=== PATIENT | male | born 1990 | race Caucasian/White ===

== ENCOUNTER 2016-10-29 22:21 | Emergency (ER) | payer SELFPAY | END 2016-10-30 01:11 | disposition home or self-care (01) | LOC: EC 22:21 | DX: F20.9 Schizophrenia, unspecified (principal) | CPT/HCPCS: 82075; 99284 ==

== ENCOUNTER 2016-10-30 22:16 | Inpatient (IN) | payer MEDICAID, OTHER ==
--- NOTE | 2016-10-30 22:48 | ED ---
General Adult HPI - General Chief complaint: Psychiatric Symptoms Stated complaint: Mental Health Source: patient, RN notes reviewed, old records reviewed Mode of arrival: ambulatory Limitations: no limitations - History of Present Illness Initial comments: Chief complaint; patient reports is hearing voices and cannot make out what they 're saying. Denies suicidal thoughts. States he stopped his medications including Haldol, Cogentin, Cymbalta a long time ago. States he last saw a counselor at [facility] one month ago. States he has appointment to follow-up with the psychiatrist pretty soon . Breath alcohol 0. Patient at this time refusing to provide urine but denies drugs. States she'll try to give us a urine sample. The patient was seen emergency room yesterday. Even brought emergency room by the police because his mother cold them to say that he was depressed, stating he was suicidal. They found him burning his own closed. He was noncooperative yesterday. Because he did not say to the police that he was depressed or suicidal. Did not do a petition. Because he is uncooperative here or did he complain of depression or suicide yesterday left emergency room. His mother is reportedly unable to do a petition. - Related Data Home Medications Medication Instructions Recorded Confirmed Benztropine Mesylate [Cogentin] 1 mg PO BID 10/30/16 10/30/16 DULoxetine HCL [Cymbalta] 90 mg PO DAILY 10/30/16 10/30/16 Haloperidol [Haldol] 5 mg PO HS 10/30/16 10/30/16 Allergies Allergy/AdvReac Type Severity Reaction Status Date / Time diphenhydramine HCl Allergy Rash/Hives Verified 10/30/16 22:35 [From Benadryl] Review of Systems ROS Statement: Those systems with pertinent positive or pertinent negative responses have been documented in the HPI. Review of systems patient denies any complaints of aches pains. Mental health thorpe he states he is hearing voices but can't make out what they're saying. States he wants his medications altered. But also states she's not been on any medications for very long time. He used to be on Haldol, Cogentin and Cymbalta. Past medical problems schizophrenia. Surgeries appendectomy. Family history unknown. Cancers of unknown types. ALLERGIES to Benadryl. Denies smoking denies drinking. ROS Other: All systems not noted in ROS Statement are negative. Past Medical History Past Medical History: No Reported History History of Any Multi-Drug Resistant Organisms: None Reported Past Surgical History: Appendectomy Additional Past Surgical History / Comment(s): Pt reports he has no money and is depressed. Past Psychological History: Depression, Schizoaffective Disorder Smoking Status: Current every day smoker Past Alcohol Use History: None Reported Past Drug Use History: None Reported General Exam - General Exam Comments Initial Comments: General: The patient is awake and alert, in no distress, and does not appear acutely ill. Here because he wants talk to the psychiatric nurse about his medications. Vital signs temp 99.2 pulse 89 respiratory rate 18 pulse ox 99% room air blood pressure 148/83 Neck: No complaint of neck pain or stiffness. Cardiovascular: There is a regular rate and rhythm. No murmur, rub or gallop is appreciated. Respiratory: Lungs are clear to auscultation, respirations are non-labored, breath sounds are equal. No wheezes, stridor, rales, or rhonchi. Gastrointestinal: No complaint of nausea vomiting or diarrhea. Back: There is no tenderness to palpation in the midline. There is no obvious deformity. No rashes noted. Musculoskeletal: Normal ROM, no tenderness, There is no pedal edema. There is no calf tenderness or swelling. Sensation intact. Neurological: No neuro deficits Skin: Skin is warm and dry and no rashes or lesions are noted. Psychiatric: History of schizophrenia. Currently denying suicidal thoughts or intentions. States he is hearing voices. Cannot understand what they're saying. Limitations: no limitations Course Vital Signs 10/30/16 22:20 Temperature 99.2 F Pulse Rate 89 Respiratory 18 Rate Blood Pressure 148/83 O2 Sat by Pulse 99 Oximetry Medical Decision Making - Medical Decision Making the patient remained threatening in the emergency room. Not staying in his room. Refusing to provide urine sample. He did have a discussion the psychiatric nurse. She spoke to the psychiatrist and the psych nurse is filled out a petition. I filled out a certificate for admission to [facility] for evaluation by psychiatrist. Diagnosis schizophrenia. Disposition Clinical Impression: Schizophrenia, acute, Non-compliant patient Disposition: TRANSFER TO PSYCH HOSP/UNIT Condition: Serious
[2016-10-31] MEDS ORDERED: ZIPRASIDONE 20 MG VIAL IM STA (00:20)
[2016-10-31] MEDS ORDERED: LORazepam 2 MG/ML SYRINGE IM STA (00:21)
[2016-10-31] MEDS ORDERED: MAG HYDROX/AL HYDROX/SIMETH 30 ML CUP PO PRN (00:43)
[2016-10-31] MEDS ORDERED: ACETAMINOPHEN TAB 325 MG TAB PO PRN (00:43)
[2016-10-31] MEDS ORDERED: LORazepam 2 MG/ML SYRINGE IM PRN (00:48)
[2016-10-31] MEDS ORDERED: HALOPERIDOL LACTATE 5 MG/ML 1 ML VIAL IM PRN (00:49)
[2016-10-31 08:46] LABS: Basophils % (A) 1 %; CH 32.2; CHCM 34.6; Eosinophils # (A) 0.3 k/uL (0-0.7); Eosinophils % (A) 4 %; HCT 44.3 % (39.0-53.0); HDW 2.41; HGB 15.4 gm/dL (13.0-17.5); Luc # (Auto) 0.13; Luc % (Auto) 2; Lymphocytes # (A) 2.9 k/uL (1.0-4.8); Lymphocytes % (A) 35 %; MCH 32.4 pg (25.0-35.0); MCHC 34.8 g/dL (31.0-37.0); MCV 93.2 fL (80.0-100.0); Mean Platelet Volume 6.8; Monocytes # (A) 0.5 k/uL (0-1.0); Monocytes % (A) 6 %; Neutrophils # (A) 4.4 k/uL (1.3-7.7); Neutrophils % (A) 53 %; RBC 4.76 m/uL (4.30-5.90); RDW 12.9 % (11.5-15.5); WBC 8.2 k/uL (3.8-10.6); WBC (Perox) 7.72
[2016-10-31 09:19] LABS: ALT 36 U/L (21-72); AST 22 U/L (17-59); Alkaline Phosphatase 74 U/L (38-126); Anion Gap 11 mmol/L; Blood Urea Nitrogen 13 mg/dL (9-20); Calcium 9.7 mg/dL (8.4-10.2); Carbon Dioxide 26 mmol/L (22-30); Chloride 106 mmol/L (98-107); Glucose 94 mg/dL (74-99); Non-African American GFR(MDRD) >60 (>60 ml/min/1.73 sqM); Potassium 4.4 mmol/L (3.5-5.1); Sodium 143 mmol/L (137-145); Total Protein 6.7 g/dL (6.3-8.2)
--- NOTE | 2016-10-31 09:42 | P.HP ---
Psychiatric H&P - . History & Physical: Allergies Allergy/AdvReac Type Severity Reaction Status Date / Time diphenhydramine HCl Allergy Rash/Hives Verified 10/31/16 03:11 [From Benadryl] Vital Signs Temp 97.4 F L 10/31/16 02:39 Pulse 80 10/31/16 02:39 Resp 16 10/31/16 02:39 BP 117/55 10/31/16 02:39 Pulse Ox 95 10/31/16 02:39 Intake & Output 10/30/16 10/31/16 10/31/16 18:59 06:59 18:59 Weight 74.843 kg Laboratory Last Values WBC 8.2 k/uL (3.8-10.6) 10/31/16 08:35 RBC 4.76 m/uL (4.30-5.90) 10/31/16 08:35 Hgb 15.4 gm/dL (13.0-17.5) 10/31/16 08:35 Hct 44.3 % (39.0-53.0) 10/31/16 08:35 MCV 93.2 fL (80.0-100.0) 10/31/16 08:35 MCH 32.4 pg (25.0-35.0) 10/31/16 08:35 MCHC 34.8 g/dL (31.0-37.0) 10/31/16 08:35 RDW 12.9 % (11.5-15.5) 10/31/16 08:35 Plt Count 315 k/uL (150-450) 10/31/16 08:35 Neutrophils % 53 % 10/31/16 08:35 Lymphocytes % 35 % 10/31/16 08:35 Monocytes % 6 % 10/31/16 08:35 Eosinophils % 4 % 10/31/16 08:35 Basophils % 1 % 10/31/16 08:35 Neutrophils # 4.4 k/uL (1.3-7.7) 10/31/16 08:35 Lymphocytes # 2.9 k/uL (1.0-4.8) 10/31/16 08:35 Monocytes # 0.5 k/uL (0-1.0) 10/31/16 08:35 Eosinophils # 0.3 k/uL (0-0.7) 10/31/16 08:35 Basophils # 0.0 k/uL (0-0.2) 10/31/16 08:35 10/31/16 09:32 IDENTIFYING DATA: This patient is a 25-year-old single male who was admitted to the mental health unit for acute symptoms of psychosis from the emergency room. HPI: The patient presented with a petition stating "responding to internal cues currently, not taking medicines, and current paranoia." It is documented that the patient had presented to the ER the day before yesterday and left and presented to the ER more than once before allowing and evaluation yesterday. In the emergency room he was agitated and required use of Geodon IM. Today he states his mood is "stressful and tired". He reports struggling with auditory hallucinations ever since 2013. He states they have been worsening since this past August. He reports that they say "my whole family will ,... A bunch of negative shit". The patient states that he hears multiple voices and they can be commanding at times but they do not direct harm to self or harm to others. He reports his sleep is bad appetite has been low he reports losing approximately 10 pounds. Energy level is "not good". He has had mood symptoms in the past he does not describe significant symptoms of anxiety. It is unclear if he has had any hypomanic or manic episodes although he endorses none area he reports having no firearms at home. PAST PSYCHIATRIC HISTORY: He states he's had anywhere from 5-10 psychiatric admissions the last one was last year at [facility]. He works with Marilyn Nogueira at [facility] and states he was last prescribed Haldol 5 mg at bedtime Cymbalta 90 mg daily Cogentin 1 mg twice daily. He states he does not feel that the Haldol provides enough relief and is concerned that it has caused a dystonic reaction in the past. The Cogentin seems to help alleviate that side effect but causes blurring of his vision. He does feel that the Cymbalta has been effective for mood symptoms. He states he's been off of his medicines for approximately one month then later indicates he's been off of them since August. He has previously tried Risperdal Abilify and Zoloft. He states he has a history of 1 suicide attempt where he attempted to hang himself. PMH: None reported ALLERGIES: Diphenhydramine MEDICATIONS: None CHEMICAL DEPENDENCY HISTORY: He reports using alcohol once a week having 2 drinks at a time, no reported use of marijuana or any other illicit drugs. He is never been placed in residential treatment for chemical dependency reasons FAMILY PSYCHIATRIC HISTORY: The patient refused to answer FAMILY CHEMICAL DEPENDENCY HISTORY: The patient refused to answer SOCIAL HISTORY: The patient is a 25-year-old single male. He is originally from [facility]. He was raised primarily by his mother, he states he knows who his father is but does not really know him. When asked if he has any siblings he refuses to answer area he has an eighth grade education he was involved in special education curriculum. No history of service. 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 He reports he has his own apartment but does not describe how it's paid for other than stating he is involved with [employer]. He states he has applied for disability. In terms of legal history he refuses to answer, abuse history none reported. MENTAL STATUS EXAM: The patient is a male appearing his stated age he is a disheveled appearance he is wearing hospital gowns he has a ellington with no mustache. Eye contact is intermittent. He appears guarded throughout the session he demonstrates some odd smiling at times during our discussion. Speech can be spontaneous. He appears distracted during the interview several times he asks me to repeat what I said last. He endorses ongoing auditory hallucinations that are derogatory. He endorses visual hallucinations that are fast moving shadows. In terms of delusional thought he states he is being watched and followed by so security as he has applied and they're monitoring him. He states he has passed acquaintances that are following him as well. In general he describes feeling "unsafe". Insight and judgment are impaired. He is oriented to person place and date he is able to name the days of the week backwards. He demonstrates no verbal or physical aggressiveness he demonstrates no abnormal involuntary movements. STRENGTHS/WEAKNESSES: Strengths: Reported housing, [facility] support weaknesses: Lack of income ongoing symptoms of psychosis INTELLECTUAL FUNCTIONING: Presumed to be below average IMPRESSIONS: [] 1. Schizophrenia, rule out schizoaffective disorder 2. Lack of income, social support unknown, psychosocial dysfunction due to current symptoms of psychosis PLAN: He patient has been admitted to the mental health unit on a petition and clinical certificate. He states he is willing to sign in voluntarily and cooperate with proposed treatment. We reviewed his presenting symptoms and medication options and decided to initiate Zyprexa 15 mg at bedtime he will be restarted on Cymbalta 60 mg daily. Cogentin will be available if needed for dystonic symptoms. He will meet with the cushion sewer for routine history and physical exam. Social work will meet with the patient to complete a psychosocial assessment and begin discharge planning. We will monitor him for safety and encourage his full participation in the milieu
[2016-10-31] MEDS: NICOTINE 14MG/24HR PATCH TRANSDERM SCH (09:49)
[2016-10-31] MEDS: DULoxetine HCL 60 MG CAPSULE.DR PO SCH (09:50)
--- NOTE | 2016-10-31 13:59 | P.MDCNMH ---
History of Present Illness H&P Date: 10/31/16 Chief Complaint: Medical management This is a 25 her old male. He does not have a primary care physician. He has a past medical history of schizophrenia, tobacco use and dependence. When asked questions about his past medical history. Patient states that no one to talk about it. According to the ER notes, patient was hearing voices. He was saw his counselor one month ago. Apparently his mother passed on that he was depressed and suicidal. Patient is subsequently been admitted to the mental health unit. TSH was 2.350. Urinalysis was negative for urinary tract infection. Urine drug screen was positive for marijuana. Review of Systems All systems: negative Constitutional: Denies chills, Denies fever Eyes: denies blurred vision, denies pain Ears, nose, mouth and throat: Denies headache, Denies sore throat Cardiovascular: Denies chest pain, Denies shortness of breath Respiratory: Denies cough Gastrointestinal: Denies abdominal pain, Denies diarrhea, Denies nausea, Denies vomiting Musculoskeletal: Denies myalgias Integumentary: Denies pruritus, Denies rash Neurological: Denies numbness, Denies weakness Psychiatric: Reports depression, Reports hopelessness, Reports suicidal ideation , Denies anxiety Endocrine: Denies fatigue, Denies weight change Past Medical History Past Medical History: No Reported History History of Any Multi-Drug Resistant Organisms: None Reported Past Surgical History: Appendectomy Additional Past Surgical History / Comment(s): Pt reports he has no money and is depressed. Smoking Status: Current every day smoker Additional Past Alcohol Use History / Comment(s): Patient is a smoker of half pack a day for 3 years. He denies any medical marijuana, marijuana, street drug use. He uses alcohol occasionally. - Past Family History Father Additional Family Medical History / Comment(s): Patient will state that his parents of mother and father are both alive but he does not know their medical history. When asked about his brothers and sisters he just states I don't know. Medications and Allergies Home Medications Medication Instructions Recorded Confirmed Type Benztropine Mesylate [Cogentin] 1 mg PO BID 10/30/16 10/31/16 History DULoxetine HCL [Cymbalta] 90 mg PO DAILY 10/30/16 10/31/16 History Haloperidol [Haldol] 5 mg PO HS 10/30/16 10/31/16 History Allergies Allergy/AdvReac Type Severity Reaction Status Date / Time diphenhydramine HCl Allergy Rash/Hives Verified 10/31/16 03:11 [From Benadryl] Physical Exam Vitals: Vital Signs Temp Pulse Pulse Resp BP BP Pulse Ox 10/31/16 02:39 97.4 F L 80 16 117/55 95 10/31/16 01:26 67 18 103/55 98 10/30/16 22:20 99.2 F 89 18 148/83 99 Intake and Output 10/30/16 10/31/16 10/31/16 22:59 06:59 14:59 Other: Weight 74.843 kg Gen: This is a 25-year-old male. He is in no acute distress. HEENT: Head is atraumatic, normocephalic. Pupils equal, round. Sclerae is anicteric. NECK: Supple. No JVD. No lymphadenopathy. No thyromegaly. LUNGS: Clear to auscultation. No wheezes or rhonchi. No intercostal retractions. HEART: Regular rate and rhythm. No murmur. ABDOMEN: Soft. Bowel sounds are present. No masses. No tenderness. EXTREMITIES: No pedal edema. No calf tenderness. NEUROLOGICAL: Patient is awake, alert and oriented x3. Cranial nerves 2 through 12 are grossly intact. Cranial Nerve Examination - Cranial Nerves Cranial Nerve II- Optic: Intact Cranial Nerve III- Oculomotor: Intact Cranial Nerve IV- Trochlear: Intact Cranial Nerve V- Trigeminal: Intact Cranial Nerve - Abducens: Intact Cranial Nerve VII- Facial: Intact Cranial Nerve VIII- Auditory: Intact Cranial Nerve IX- Glossopharyngeal: Intact Cranial Nerve X- Vagus: Intact Cranial Nerve XI- Accessory: Intact Cranial Nerve XII- Hypoglossal: Intact Results CBC & Chem 7: 10/31/16 08:35 10/31/16 08:35 Assessment and Plan Plan: 1. Schizophrenia with depression and suicidal ideation. Patient admitted to the mental health unit. Continue current plan of care. 2. Tobacco use and dependence. Continue nicotine patch. Impression and plan of care have been directed as dictated by the signing physician. Mell Donis nurse practitioner acting as scribe for signing physician.
[2016-10-31] MEDS: LORazepam 1 MG TAB PO PRN (17:32)
[2016-10-31] MEDS ORDERED: HALOPERIDOL 5 MG TAB PO SCH (21:00)
[2016-10-31] MEDS: OLANZapine ODT 5 MG TAB PO SCH (21:17)
[2016-11-01] MEDS: DULoxetine HCL 60 MG CAPSULE.DR PO SCH (08:15)
[2016-11-01] MEDS: NICOTINE 14MG/24HR PATCH TRANSDERM SCH (08:15)
[2016-11-01] MEDS: LORazepam 1 MG TAB PO PRN (12:10)
[2016-11-01] MEDS ORDERED: OLANZapine ODT 5 MG TAB PO ONE (12:28)
[2016-11-01] MEDS ORDERED: WATER FOR INJECTION, STERILE 10 ML IV ONE ×2 (12:55→20:59)
[2016-11-01] MEDS: ZIPRASIDONE 20 MG VIAL IM PRN ×2 (12:58→21:12)
--- NOTE | 2016-11-01 16:29 | P.PN ---
Progress Note - Text Interval History: Patient is a 25-year-old male who was admitted for psychotic symptoms on a petition and clinical certification. He had been responding to internal stimuli and was not taking his medications. He presented to the emergency room on several occasions before admission and on the day of admission became quite agitated in the emergency room requiring Geodon IM. Patient was admitted and restarted on Cymbalta at 60 mg and begun onZyprexa 15 mg at bedtime. Patient received Geodon 20 mg and Ativan 2 mg last evening due to increasing agitation. Again this afternoon the patient became agitated and was given Ativan 1 mg by mouth with little result and was refusing any shots and so was given Zyprexa Zydis 5 mg orally with little improvement and so was given Geodon IM 20 mg due to increasing agitation, pacing in the halls and staring at staff. Patient was sleeping in his room, when approached he awakened easily. He stated he was feeling somewhat better, but did not want to continue the interview, closing his eyes and smiling but would not answer any more questions. Mental Status: Patient is a 25y/o male who was lying in his bed, he was easily awakened when approached but did not get out of bed, he remained lying down. Patient had been agitated earlier, pacing in the [place], staring at staff and received several prns. He stated he was feeling better, but he would not respond to any further questions. He was smiling during the interview but would not state about what. Patient then closed his eyes and would not respond to further questions. Assessment: Patient was discussed in treatment meeting and he remains guarded and has not been attending groups and required medication last evening for agitation. He is taking his oral medications. He again became agitated this afternoon, pacing in the halls, staring at staff and initially received ativan 1mg with little improvement, when asked if he would take a shot he refused and was given a one time dose of zyprexa zydis 5mg also with little benefit and he continued to show increasing signs of agitation, pacing and staring. He agreed to and was given an injection of Geodon 20mg. Patient returned to his room and slept. He was not cooperative with my interview late this afternoon, he did not appear groggy. He did not voice any other concerns or complaints. Plan: Patient will continue on his current medications, he is receiving Cymbalta 60 mg daily and Zyprexa 15 mg daily at bedtime, he continues to have when necessary Ativan and Geodon prn. Patient continues to require hospitalization to stablize and treat his psychotic symptoms. Patient will be encouraged to attend groups and activities.
[2016-11-01] MEDS: OLANZapine ODT 5 MG TAB PO SCH (20:48)
[2016-11-01] MEDS ORDERED: ZIPRASIDONE 20 MG VIAL IM ONE (20:59)
--- NOTE | 2016-11-02 08:45 | P.PN ---
Progress Note - Text Interval history: The patient is found in the hallway he follows me to an interview room reluctantly. He reports that he is "pissed off" and when asked why he states "you know why". He refuses to elaborate further. In reviewing notes it appears that the patient became agitated yesterday and required an injection of Geodon. He does ask as to when he will be discharged and we discussed discharge criteria given his presentation. He reports that he showering and attending some groups. He endorses no recent phone calls or visits. He has no questions regarding his medication he continues on Cymbalta and Zyprexa. He reports that he slept last night and appetite stable. Mental status exam: The patient is a disheveled male dressed in his own clothing. Eye contact is staring in nature he appears guarded and suspicious. He insinuates that I have an ulterior motive but does not elaborate further. He appears distracted and is likely still experiencing auditory hallucinations. He does admit to having auditory hallucinations but states are quieter. Again several times I have to repeat my question as he is distracted. He taps his fingers on the table throughout the session but he demonstrates no verbal or physical aggressiveness. He appears frustrated. He reports no suicidal or homicidal thoughts. No observed abnormal involuntary movements. Insight and judgment are impaired. Plan: The patient will continue on his current medication I will titrate the Zyprexa Zydis to 20 mg at bedtime in an effort to reduce symptoms of psychosis. He requires continued hospitalization for psychosis that leads to agitated behavior. We will monitor him for safety and encourage his participation in the milieu.
[2016-11-02] MEDS: DULoxetine HCL 60 MG CAPSULE.DR PO SCH (09:21)
[2016-11-02] MEDS: NICOTINE 14MG/24HR PATCH TRANSDERM SCH (09:21)
[2016-11-02] MEDS: LORazepam 1 MG TAB PO PRN (14:44)
[2016-11-02] MEDS: OLANZapine ODT 10 MG TAB PO SCH (20:06)
[2016-11-03] MEDS: NICOTINE 14MG/24HR PATCH TRANSDERM SCH (09:02)
[2016-11-03] MEDS: DULoxetine HCL 60 MG CAPSULE.DR PO SCH (09:02)
[2016-11-03] MEDS: LORazepam 1 MG TAB PO PRN ×2 (10:52→19:19)
--- NOTE | 2016-11-03 11:29 | P.PN ---
Progress Note - Text Interval history: The patient is found in the hallway he follows me to an interview room. He initially states he continues to experience auditory hallucination and reports that they are less severe. Later in the morning he intrusively presents to the office and states he is not having any hallucinations. He continues to reference the assumption that I have an all teary her motive but he will not discuss it further. Continues to state "you know what I mean" he states that I discuss his care with "the people upstairs". It appears he's been compliant with his medication nursing is encouraged to monitor him closely for compliance. He continues to be easily agitated. Mental status exam: The patient is a male appearing his stated age he is dressed in the same clothing is yesterday. Eye contact is staring in nature he continues to appear suspicious and guarded. He continues to appear to have paranoid and persecutory thoughts. The patient intrusively approaches me several times throughout the morning. Insight and judgment are impaired. He demonstrates no abnormal involuntary movements. Affect is blunted with little change in expression throughout the conversation. He initially truncated are session after only a few moments out of anger but he returned to participate further. Plan: The patient's will continue on his current medication. We are allowing the Zyprexa time to demonstrate efficacy. Nursing is encouraged to observe him for compliance with medication. Vital signs reviewed. The patient requires continued hospitalization due to acute psychosis. There has been little improvement so far clinically speaking.
[2016-11-03] MEDS: OLANZapine ODT 10 MG TAB PO SCH (21:00)
--- NOTE | 2016-11-04 08:22 | P.PN ---
Progress Note - Text Interval history: A she has seen in cross coverage today for Dr. Ballard. He seems to relay that he slept well last night. He has not had breakfast yet this morning. He seems to be compliant with his medications and does not voice any adverse side effects. He is currently on Zyprexa Zydis and Cymbalta. Mental status exam: He was found in his room lying in bed. He did awaken with name-calling and was cooperative with coming to the interview room. His affect is blunted. His answers are very brief. He describes his mood as good. He denies any auditory or visual hallucinations. He denies any thoughts of harm to self or others. He does not show any current agitation. Plan: We'll maintain current psychotropic medications. Monitor his ongoing response to medications as well as monitor for any medication side effects. We' ll continue to cover this patient for Dr. Ballard through the weekend.
[2016-11-04] MEDS: NICOTINE 14MG/24HR PATCH TRANSDERM SCH (09:09)
[2016-11-04] MEDS: DULoxetine HCL 60 MG CAPSULE.DR PO SCH (09:10)
[2016-11-04] MEDS: LORazepam 1 MG TAB PO PRN ×2 (15:25→22:34)
[2016-11-04] MEDS: OLANZapine ODT 10 MG TAB PO SCH (20:09)
[2016-11-05] MEDS: NICOTINE 14MG/24HR PATCH TRANSDERM SCH (09:35)
[2016-11-05] MEDS: DULoxetine HCL 60 MG CAPSULE.DR PO SCH (09:35)
[2016-11-05] MEDS: LORazepam 1 MG TAB PO PRN (12:39)
--- NOTE | 2016-11-05 12:41 | P.PN ---
Progress Note - Text Interval history: Patient seen in [facility] [place] for Dr. Ballard. Patient reports that he slept well through the night. He seems to be eating well. He does inquire regarding discharge planning. He relates that he has not been needing to take the Cogentin when necessary. He does not seem to voice any adverse psychotropic medication side effects. Mental status exam: He is alert and cooperative with the interview. His answers are somewhat brief. He describes his mood as up and down. He denies any thoughts of harm to self or others. He denies any hallucinations. He does not make any christo delusional statements. His affect is somewhat blunted. He does not show any agitation. Plan: Patient will be maintained on current psychotropic medication regimen. We will monitor for any medication side effects monitor his ongoing response. Dr. Ballard to resume care this patient starting tomorrow.
[2016-11-05] MEDS: OLANZapine ODT 10 MG TAB PO SCH (21:45)
[2016-11-06] MEDS: NICOTINE 14MG/24HR PATCH TRANSDERM SCH (09:58)
[2016-11-06] MEDS: DULoxetine HCL 60 MG CAPSULE.DR PO SCH (09:58)
[2016-11-06] MEDS: LORazepam 1 MG TAB PO PRN ×2 (10:35→19:23)
--- NOTE | 2016-11-06 11:37 | P.PN ---
Progress Note - Text Interval history: The patient is found in the hallway he follows me to an interview room. He refuses to sit and wishes to stand. He demands an answer as to when he is being discharged when that can not be provided to him he begins to leave the room. After trying to reengage him in conversation he comes back over but continues standing. He reports his hallucinations have resolved which is likely untrue as he is trying to facilitate a discharge. He states many of my questions are irrelevant and refuses to answer. Staff report that the patient remains agitated he appears suspicious and guarded suggesting continued acute symptoms of psychosis. Mental status exam: The patient is alert he is a male appearing his stated age he is dressed in his own clothing. Eye contact is staring in nature. He maintains a blunted affect for the most part but does demonstrate some mild agitation. He continues to demonstrate poor insight into his presenting symptoms. He continues to experience paranoid persecutory thoughts. He demonstrates no verbal or physical aggressiveness and for the most part was still directable. He demonstrates no abnormal involuntary movements. Plan: The patient will continue on the Zyprexa Zydis we will consider changing the antipsychotic medication or augmenting it. The patient apparently has signed an AMA form which will tomorrow. We will need to complete a petition and clinical certificate as he is not appropriate for discharge from the hospital. His symptoms of psychosis continue to cause dysfunction and agitation and I would expect him to decompensate further if discharged at this time. We will continue to monitor him for safety and encourage participation in the milieu will provide reality orientation when possible. We will consider utilizing invega.
[2016-11-06] MEDS: OLANZapine ODT 10 MG TAB PO SCH (22:07)
[2016-11-07] MEDS: LORazepam 1 MG TAB PO PRN ×3 (08:34→21:00)
[2016-11-07] MEDS: DULoxetine HCL 60 MG CAPSULE.DR PO SCH (08:34)
[2016-11-07] MEDS: NICOTINE 14MG/24HR PATCH TRANSDERM SCH (08:34)
--- NOTE | 2016-11-07 11:53 | P.PN ---
Progress Note - Text Interval history: The patient is found in group he follows me to an interview room. The patient states he has no hallucinations he feels his medicines working and he is ready for discharge. With further questioning however the patient continues to demonstrate paranoid and persecutory thinking. He describes himself as a fish that people are using to get out of here. He continues to state "you know what I'm talking about". Staff report in group that the patient still demonstrate some bizarre behavior such as inappropriate smiling and laughter area he is also noted to make random comments that are not fitting the context of the conversation. Mental status exam: The patient is alert he is dressed in the same clothing eye contact is staring in nature. He reports he is doing fine. He provides brief answers to questions asked. Although he denies symptoms of psychosis he clearly continues to have paranoid and persecutory thoughts that he is underreporting to try to facilitate a discharge. He is doing better with managing his agitation in terms of physical expression. Insight and judgment remain impaired. He is reporting no thoughts of harming himself or others but again he is an unreliable historian. He demonstrates no abnormal involuntary movements. Plan: The patient will continue on the Zyprexa we have been giving this more time to demonstrate efficacy. I have called his outpatient prescriber with [facility] to discuss a possible medication change possibly invega. He has previously been on Risperdal with unknown results. The patient' s AMA will tomorrow we have proceeded with completing a petition and clinical certificate. Vital signs reviewed. We will continue to monitor him for safety.
[2016-11-07] MEDS: BENZTROPINE MESYLATE 1 MG TAB PO PRN (17:32)
[2016-11-07] MEDS: OLANZapine ODT 10 MG TAB PO SCH (20:59)
[2016-11-08] MEDS: NICOTINE 14MG/24HR PATCH TRANSDERM SCH (08:33)
[2016-11-08] MEDS: DULoxetine HCL 60 MG CAPSULE.DR PO SCH (08:33)
--- NOTE | 2016-11-08 11:06 | P.PN ---
Progress Note - Text Interval history: The patient is found in his room lying in bed. He is verbally arousable he makes brief eye contact and states "I don't want to talk" he provided no other verbal responses and would not comply with the request of coming down to the office for discussion today. Staff reports that the patient' s had attended groups but continues to have odd laughter. Social work contacted the patient's mother reports that the patient continues to appear paranoid and he has been calling her numerous times throughout the day. She provided a description of his baseline function which appears quite different than his presentation here on the mental health unit. Mental status exam: The patient is lying in bed he makes brief eye contact he provides 1 verbal response as noted above. He is lying in bed with no acute agitation he is in no acute distress. Insight and judgment remain impaired. He continues to experience paranoid persecutory thoughts. Plan: The patient will be cross tapered off of Zyprexa and we will initiate invega 3 mg at bedtime with a plan of titrating further and likely using the Invega Sustenna Depo injection. The patient has a deferral conference today. We will continue to monitor him for safety. He continues to have symptoms of acute psychosis which require continued psychiatric hospitalization.
[2016-11-08] MEDS: LORazepam 1 MG TAB PO PRN ×2 (12:24→17:42)
[2016-11-08] MEDS: HALOPERIDOL 5 MG TAB PO PRN (12:33)
[2016-11-08] MEDS: BENZTROPINE MESYLATE 1 MG TAB PO PRN ×2 (12:33→21:23)
[2016-11-08] MEDS: OLANZapine ODT 10 MG TAB PO SCH (20:52)
[2016-11-08] MEDS: PALIPERIDONE 3 MG TAB.ER.24 PO SCH ×2 (20:52→21:07)
[2016-11-08] MEDS: OLANZapine 10 MG TAB PO SCH ×2 (20:52→21:07)
[2016-11-09] MEDS: NICOTINE 14MG/24HR PATCH TRANSDERM SCH (09:49)
[2016-11-09] MEDS: DULoxetine HCL 60 MG CAPSULE.DR PO SCH (09:49)
[2016-11-09] MEDS: LORazepam 1 MG TAB PO PRN ×2 (11:16→18:24)
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
[2016-11-09] MEDS: OLANZapine ODT 10 MG TAB PO SCH (19:59)
[2016-11-09] MEDS: PALIPERIDONE 3 MG TAB.ER.24 PO SCH (19:59)
[2016-11-09] MEDS: MAGNESIUM HYDROXIDE 2,400 MG/10 ML CUP PO PRN (21:16)
[2016-11-09] MEDS: HALOPERIDOL 5 MG TAB PO PRN (22:53)
[2016-11-09] MEDS: BENZTROPINE MESYLATE 1 MG TAB PO PRN (22:54)
[2016-11-10] MEDS: NICOTINE 14MG/24HR PATCH TRANSDERM SCH (08:21)
[2016-11-10] MEDS: DULoxetine HCL 60 MG CAPSULE.DR PO SCH (08:21)
--- NOTE | 2016-11-10 11:38 | P.PN ---
Progress Note - Text Interval history: The patient is found in the hallway he follows me to an interview room. The patient states she is doing well the new medication is helpful and he likes it. He asks about discharge when he is informed that he will not be discharged today he gets up and leaves the room. Within moments he returns asking to finish the conversation. I did provide an explanation as to why we are changing his medication and the expected dose we will use starting tonight. He again asks when he is going to be discharged and leaves the room after hearing it's not today. Staff report the patient's demonstrated no agitated behavior but he continues to display signs of psychosis. Mental status exam: The patient is a male appearing his stated age he seated calmly he demonstrates no agitated behavior other than leaving the room prior to the end of our discussion. He continues to have paranoid person Makenna thoughts. He voices no thoughts of harming himself or others. Insight and judgment remain impaired. He clearly is underreporting symptoms of psychosis to facilitate a discharge. Plan: The patient will continue the invega we will increase the dose to 6 mg at bedtime we will discontinue the Zyprexa. He continues on Cymbalta 60 mg daily. He has not demonstrated sufficient improvement of his psychosis to warn a discharge. I was informed that he did defer at the deferral conference. We may need to do a demand for hearing if he ultimately is not cooperative with an invega systemic injection. Vital signs reviewed.
[2016-11-10] MEDS: LORazepam 1 MG TAB PO PRN ×2 (11:51→17:51)
[2016-11-10] MEDS: PALIPERIDONE 6 MG TAB.ER.24 PO SCH (19:47)
[2016-11-11] MEDS: NICOTINE 14MG/24HR PATCH TRANSDERM SCH (08:21)
[2016-11-11] MEDS: DULoxetine HCL 60 MG CAPSULE.DR PO SCH (08:21)
[2016-11-11] MEDS: LORazepam 1 MG TAB PO PRN ×3 (09:39→17:42)
--- NOTE | 2016-11-11 12:39 | P.PN ---
Progress Note - Text Interval history: The patient is found in the hallway he follows me to the library for interview. We have discontinued the Zyprexa and have increased invega 6 mg daily he has been compliant with the medication. He reports that he is feeling better. In discussing goals he has for himself he states he wants to improve the quality relationships with certain family members. He states he has difficulty relating to family members that appear to be wealthy. In terms of relationships he also struggles with the fact that he is not more social and he has no friends. We did briefly touch on the fact that he had a breakup of a romantic relationship that lasted 4 years. He was somewhat guarded and did not want discuss that further. We discussed his medication in detail. We discussed the idea of using invega systemic and he is agreeable. Mental status exam: The patient is alert he is dressed in his own clothing he was observed earlier ambulating in the hallway. He reports his mood is better. He still remains guarded and continues to experience paranoid persecutory thoughts but he is Jen sleep verbalizes those less. He has demonstrated no verbal or physical aggressiveness. Insight and judgment limited but beginning to improve. While here he has not verbalized any suicidal or homicidal thoughts. Affect demonstrates increased range appropriately. Plan: The patient will continue on the invega systemic 6 mg. Once we see the invega demonstrate efficacy we will proceed with using the invega systemic injection. We will continue to monitor him for safety and encourage his participation in the milieu. He states his mother and a friend will likely visit this evening. We will contact them regarding their impression of his status versus baseline after that visit.
[2016-11-11] MEDS: PALIPERIDONE 6 MG TAB.ER.24 PO SCH (19:53)
[2016-11-12] MEDS: DULoxetine HCL 60 MG CAPSULE.DR PO SCH ×2 (09:42→09:56)
[2016-11-12] MEDS: NICOTINE 14MG/24HR PATCH TRANSDERM SCH ×2 (09:42→09:56)
--- NOTE | 2016-11-12 10:16 | P.PN ---
Progress Note - Text Interval history: The patient is found in his room sleeping. He is verbally arousable. He prefers not to me an interview room today. He describes his mood is "fine". He verbalizes no questions or concerns regarding his medication. Again we reviewed the medication plan. He remains focused on discharge. He reports having no visitors last evening. He typically attend groups but so far this morning he has not attended. Mental status exam: The patient is alert he is lying in bed he is a disheveled appearance hygiene seems adequate. Eye contact is staring in nature. He does appear somewhat preoccupied this morning as I had to repeat questions to him. He is guarded he is careful not to endorse symptoms of psychosis as he is trying to facilitate a discharge. He does appear to have some psychotic symptoms still. He verbalizes no suicidal or homicidal ideation. He demonstrates no verbal or physical aggressiveness. He is easily directed in the session. He remains oriented to person place month and year. No observed abnormal involuntary movements. Plan: The patient will continue on the invega. We will likely transition to Invega Sustenna. Continue to monitor him for safety and encourage his participation in the milieu. Vital signs reviewed.
[2016-11-12] MEDS: LORazepam 1 MG TAB PO PRN ×2 (11:10→17:59)
[2016-11-12] MEDS: MAGNESIUM HYDROXIDE 2,400 MG/10 ML CUP PO PRN (15:41)
[2016-11-12] MEDS: PALIPERIDONE 6 MG TAB.ER.24 PO SCH (20:32)
[2016-11-13] MEDS: NICOTINE 14MG/24HR PATCH TRANSDERM SCH (08:20)
[2016-11-13] MEDS: DULoxetine HCL 60 MG CAPSULE.DR PO SCH (08:20)
--- NOTE | 2016-11-13 09:16 | P.PN ---
Progress Note - Text Interval history: The patient is found in the hallway he follows me to an interview room. He reports his mood is "angry" referring to his continued hospitalization. When asked what he has been thinking about he states "freedom ". He asked several questions again regarding his medication and his discharge plan which were very similar to the ones he asked on Sunday. We reviewed the treatment plan including using the Invega Sustenna again he is agreeable. He reports no auditory hallucinations however there is some likelihood that he continues to experience those and is underreporting. He has been selectively attending groups. Appetite stable. He reports showering. He states his mother visited last evening we will have social work contact her to see how that interaction went. Mental status exam: The patient is an alert male appearing his stated age. He has a mildly disheveled appearance he is dressed in his own clothing. Eye contact is appropriate affect seems to be appropriately brighter at times and more expressive. He endorses feelings of anger and frustration due to his continued hospital stay. He has little spontaneous speech and briefly answers questions asked of him. He is reporting no suicidal or homicidal ideation. He demonstrates no verbal or physical aggressiveness. Insight and judgment limited. Plan: The patient will continue on his current medications we will likely initiate Invega Sustenna this week. If he demonstrates further stability/ clinical improvement we will consider discharging him this week. His family will be involved in discharge planning. Vital signs reviewed.
[2016-11-13] MEDS: LORazepam 1 MG TAB PO PRN ×2 (09:37→14:48)
[2016-11-13 13:40] VITALS: BMI 25.9
[2016-11-13] MEDS: PALIPERIDONE 6 MG TAB.ER.24 PO SCH (21:04)
[2016-11-14] MEDS: BENZTROPINE MESYLATE 1 MG TAB PO PRN (05:14)
[2016-11-14] MEDS: DULoxetine HCL 60 MG CAPSULE.DR PO SCH (08:22)
[2016-11-14] MEDS: NICOTINE 14MG/24HR PATCH TRANSDERM SCH (08:22)
--- NOTE | 2016-11-14 08:45 | P.PN ---
Progress Note - Text Interval history: The patient's found in the library he follows this to an interview room. He reports his mood is "I've been better". He continues to be focused on discharge planning. Discussed initiating invega systemic today and he is agreeable. He reports groups what very well yesterday. Staff reported he was somewhat verbally agitated but was redirectable. He continues to deny any symptoms of psychosis. Mental status exam: The patient is alert he is dressed in his own clothing hygiene is adequate grooming is fair. Eye contact is appropriate affect is more appropriately expressive he demonstrates appropriate smiling at times. He appears more relatable in conversation. He is endorsing auditory hallucinations however I suspect they persist in some form. He is reporting no other concerns. He is no longer spontaneously reporting delusional thoughts although they still may persist any residual form. No suicidal or homicidal ideation. He demonstrates no verbal or physical aggressiveness. No abnormal involuntary movements observed. Plan: The patient will continue on Invega 6 mg. We will initiate Invega Sustenna 234 mg IM today. We will continue to monitor his progress I anticipate discharging him towards the end of this week.
[2016-11-14] MEDS ORDERED: PALIPERIDONE IM 234 MG/1.5 ML SYG IM ONE (10:00)
[2016-11-14] MEDS: LORazepam 1 MG TAB PO PRN (11:25)
[2016-11-14] MEDS: PALIPERIDONE 6 MG TAB.ER.24 PO SCH (20:32)
[2016-11-15 06:40] VITALS: RESP 16; TEMP 97.8
[2016-11-15] MEDS: DULoxetine HCL 60 MG CAPSULE.DR PO SCH (08:11)
[2016-11-15] MEDS: NICOTINE 14MG/24HR PATCH TRANSDERM SCH (08:11)
--- NOTE | 2016-11-15 08:40 | P.PN ---
Progress Note - Text INTERVERAL HISTORY: Covering for Dr. Ballard. Patient was discussed at team treatment meeting, review of record, met with patient. Patient was in the hallway asked if we could talk he followed me to my office. He states that he is stressing asked him to describe, stated that stressing about going home. States that he believes that he is being discharged tomorrow and he wants to go as soon as possible. He received the long-acting Depo paliperidone yesterday and he is also receiving the by mouth 6 mg daily. Denies any problems with the injection other than a little bit sore at the site area did says that he is bored here. Denies any thoughts of wanting to harm himself or others. MENTAL STATUS EXAM: Patient alert and oriented 3, good eye contact, well groomed in street clothing. Cooperative smiling a few times. Speech normal volume rate and production. No pressured speech. Coherent logical and goal directed thought process. No paranoid ideation or delusions expressed. No report of auditory hallucinations, however he has been noted to be smiling to himself. Likely still having some form of auditory hallucinations. Denies suicidal ideation. No verbal or physical aggression noted or reported. Mood neutral, affect constricted PLAN: Continue psychiatric hospitalization, continue treatment plan with paliperidone Depo injection and by mouth form. We will continue to monitor him for safety and for response to the medication. His acute psychosis requires continued hospitalization.
[2016-11-15] MEDS: MAGNESIUM HYDROXIDE 2,400 MG/10 ML CUP PO PRN (13:13)
[2016-11-15] MEDS: LORazepam 1 MG TAB PO PRN (16:13)
[2016-11-15] MEDS: PALIPERIDONE 6 MG TAB.ER.24 PO SCH (20:38)
[2016-11-16 06:50] VITALS: BP 142/80; PULSE 101
[2016-11-16] MEDS: DULoxetine HCL 60 MG CAPSULE.DR PO SCH (07:51)
[2016-11-16] MEDS: NICOTINE 14MG/24HR PATCH TRANSDERM SCH (07:53)
--- NOTE | 2016-11-16 09:01 | P.DS ---
Providers Date of admission: 10/31/16 00:12 Expected date of discharge: 11/16/16 Attending physician: Jemal Ballard Consults: 10/31/16 00:43 Consult Physician Routine Consulting Provider: Deep Jensen Reason/Comments: For H & P for Medical Follow Up Do you want consulting provider notified?: Yes, Notify in am Primary care physician: Stated None - Discharge Diagnosis(es) (1) Schizophrenia Current Visit: Yes Status: Acute Priority: High Hospital Course: Brief summary of admission note: This patient is a 25-year-old single male who was admitted to the mental health unit for acute symptoms of psychosis. The patient was petitioned which noted the patient appeared to be experiencing hallucinations not taking medications and was acutely paranoid. He had come to the emergency room several times before allowing evaluation. He reported the hallucinations were mainly derogatory in nature. Sleep was poor appetite low with reported weight loss. For full details please refer to my psychiatric evaluation dated 10/31/2016. Summary of hospital course: The patient was admitted to the mental health unit he initially signed in voluntarily. We initiated Zyprexa to treat his symptoms of psychosis and that medication was titrated during the course of his stay. He did become frustrated that he still required inpatient psychiatric hospitalization he signed an AMA notice. As he was not appropriate to be discharge we completed a petition and to clinical certificate. The patient did have a deferral conference and decided to defer with his criminal defense attorney present. It was apparent that the Zyprexa was not reducing his symptoms of psychosis, we initiated invega with a plan of using and Keith cisterna as there was growing concern he would not comply with his medication once discharged. He tolerated the invega as it was titrated. He has received an injection of Invega Sustenna 234 mg this past Sunday. Social work has been in contact with the patient's mother. She feels that the patient is significantly improved based on her last visit with him. His mother is scheduled to participate in a support meeting scheduled for this morning. The patient had demonstrated some agitated behavior in the emergency room but he demonstrated no physical aggressiveness here on the mental health unit. He required no use of restraint on the mental health unit. For full detail regarding hospital course please refer to specific progress notes. Mental status exam: The patient is an alert male appearing his stated age. He is dressed in his own clothing. Eye contact is appropriate speech is fluent there is some spontaneous speech. He is nonpressured in terms of speech. Mood is described as "good". Affect is more appropriately expressive he demonstrates appropriate smiling during conversation. He demonstrates future oriented thinking. He reports no suicidal or homicidal ideation intent or plan. He denies having any auditory or visual hallucinations he denies having any specific delusions. It is possible he can have some residual hallucinations or paranoid thoughts however. He is demonstrating no verbal or physical aggressiveness. He is easily directable in conversation. Insight and judgment appear to have improved. No observed abnormal involuntary movements. Impressions 1. Schizophrenia, rule out schizoaffective disorder depressed type II. Lack of income, previous psychosocial dysfunction due to symptoms of psychosis Plan: The patient's will be discharged mental health unit today. The patient's mother will participate in a support meeting this morning prior to discharge. The patient will continue on invega 6 mg at bedtime for 2 weeks. He will need an invega systemic injection of 156 mg on Sunday. He will continue the Cymbalta 60 mg daily. I will prescribe Cogentin 1 mg up to twice daily as needed for symptoms of EPS. The patient is instructed to abstain from any use of alcohol or illicit drugs including marijuana. We discussed that he is on a deferral agreement and what the consequences would be if he did not comply with appointments and medication treatment. At this time he is not at imminent risk of harming himself or others. He is appropriate for transition to outpatient care with [facility]. Patient Condition at Discharge: Stable Plan - Discharge Summary New Discharge Prescriptions: New DULoxetine HCL [Cymbalta] 60 mg PO DAILY #30 cap Nicotine 14Mg/24Hr Patch [Habitrol] 1 patch TRANSDERM DAILY #12 patch Paliperidone [Invega] 6 mg PO HS #14 tab Paliperidone IM [Invega Sustenna] 156 mg IM ONCE #1 syr Continue Benztropine Mesylate [Cogentin] 1 mg PO BID #60 Discontinued Haloperidol [Haldol] 5 mg PO HS DULoxetine HCL [Cymbalta] 90 mg PO DAILY Discharge Medication List Benztropine Mesylate [Cogentin] 1 mg PO BID #60 11/16/16 [Rx] DULoxetine HCL [Cymbalta] 60 mg PO DAILY #30 cap 11/16/16 [Rx] Nicotine 14Mg/24Hr Patch [Habitrol] 1 patch TRANSDERM DAILY #12 patch 11/16/16 [ Rx] Paliperidone IM [Invega Sustenna] 156 mg IM ONCE #1 syr 11/16/16 [Rx] Paliperidone [Invega] 6 mg PO HS #14 tab 11/16/16 [Rx] Follow up Appointment(s)/Referral(s): [facility] [Outside] - 11/17/16 1:00 pm (11/17/16 at 1:00 pm with Jessie Avendano 12-12-16 @ 12:30 with nursing for injection 01-10-17 @ 1:30 with Marilyn Ramos ) None,Stated [Primary Care Provider] - 1-2 days Patient Instructions/Handouts: Schizophrenia (DC), Suicide Prevention for Adults (DC) Activity/Diet/Wound Care/Special Instructions: Activity and diet as tolerated. Avoid the use of street drugs and alcohol. Take all medications as prescribed. When you are in need of refills on your medications please contact your outpatient medical provider and/or outpatient psychiatrist to have this done. Please go to scheduled outpatient appointment for aftercare services. If symptoms return or become worst call the crisis line at and/or go to the nearest emergency room for an evaluation.
== END 2016-11-16 10:20 | disposition home or self-care (01) | DRG 885 ==
LOC: EC 22:16 → 3MHU 10-31 00:12
PROVIDERS: ADMIT Psychiatry & Neurology Psychiatry; ATTEND Psychiatry & Neurology Psychiatry
DX: F25.1 Schizoaffective disorder, depressive type (principal); Z91.19 Patient's noncompliance with other medical treatment and regimen; R45.851 Suicidal ideations; F17.200 Nicotine dependence, unspecified, uncomplicated; Z56.0 Unemployment, unspecified; F12.90 Cannabis use, unspecified, uncomplicated; Z79.899 Other long term (current) drug therapy; Z88.8 Allergy status to other drugs, medicaments and biological substances
CPT/HCPCS: 80053; 84443; 85025; 96372; 99285

== ENCOUNTER 2019-04-28 14:22 | Inpatient (IN) | payer MEDICAID, OTHER ==
--- NOTE | 2019-04-28 14:58 | ED ---
Psych HPI - General Chief Complaint: Psychiatric Symptoms Stated Complaint: EPS eval Time Seen by Provider: 04/28/19 14:41 Source: patient Mode of arrival: ambulatory - History of Present Illness Initial Comments: This 28-year-old white male presents with a complaint of hearing voices. He states that this is been present for his entire life. He states that it is been worse recently. He denies any depression or anxiety. He relates that he has been diagnosed with schizoaffective disorder in the past. He is denying any suicidal or homicidal ideations. He states that he thinks that he needs to be on some medication to help. He previously was on unknown medication but stopped. He is not willing to tell me what medication or when he stopped his psychiatric medications. He denies any medical complaints. He denies any alcohol or drug abuse. No other modifying factors. - Related Data Home Medications Medication Instructions Recorded Confirmed Ergocalciferol [Vitamin D2] 50,000 unit PO Q7D 04/28/19 04/28/19 Haldol Decanoate 100mg/Ml Oil 150 mg IM Q28D 04/28/19 04/28/19 Loratadine [Claritin] 10 mg PO DAILY 04/28/19 04/28/19 Nicotine Polacrilex [Quit 4] 4 mg BUCCAL Q4H PRN 04/28/19 04/28/19 traZODone HCL [Desyrel] 100 mg PO HS 04/28/19 04/28/19 Previous Rx's Medication Instructions Recorded Benztropine Mesylate [Cogentin] 1 mg PO BID #60 11/16/16 DULoxetine HCL [Cymbalta] 60 mg PO DAILY #30 cap 11/16/16 Allergies Allergy/AdvReac Type Severity Reaction Status Date / Time diphenhydramine HCl Allergy Rash/Hives Verified 04/28/19 15:52 [From Benadryl] Review of Systems ROS Statement: Those systems with pertinent positive or pertinent negative responses have been documented in the HPI. ROS Other: All systems not noted in ROS Statement are negative. Past Medical History Past Medical History: No Reported History History of Any Multi-Drug Resistant Organisms: None Reported Past Surgical History: Appendectomy Additional Past Surgical History / Comment(s): Pt reports he has no money and is depressed. Past Psychological History: Depression, Schizoaffective Disorder Smoking Status: Current every day smoker Past Alcohol Use History: None Reported Past Drug Use History: None Reported - Past Family History Father Additional Family Medical History / Comment(s): Patient will state that his par ents of mother and father are both alive but he does not know their medical history. When asked about his brothers and sisters he just states I don't know. General Exam - General Exam Comments Initial Comments: GENERAL: The patient is well nourished and well hydrated. VITAL SIGNS: Heart rate, blood pressure, respiratory rate reviewed as recorded in nurse's notes. EYES: Pupils are round and reactive. Extraocular movements are intact. No conjunctival / lid redness or swelling. ENT: No external evidence of injury, swelling, or ecchymosis. Airway is patent. Throat is clear. NECK: Nontender. No swelling or evidence of injury. No subcutaneous emphysema. Trachea is midline. No thyroid mass. HEART: Regular rate and rhythm. Good peripheral pulses. LUNGS/CHEST: Breath sounds clear and equal bilaterally. No rales, rhonchi, or wheezes. No ecchymosis, subcutaneous emphysema, or tenderness. ABDOMEN: Abdomen soft without tenderness. No palpable masses or organomegaly. No peritoneal signs. No abdominal wall swelling or ecchymosis. EXTREMITIES: No extremity tenderness. Normal muscle tone and function. No thoracolumbar tenderness. NEUROLOGIC: Sensation is grossly intact. Cranial nerve exam reveals face is symmetrical, tongue is midline, speech is clear. SKIN: No abrasions or ecchymosis is noted. No induration or masses noted. PSYCHIATRIC: Alert and oriented. Seems appropriate overall but slightly paranoid. No overt anxiety or depression identified. Limitations: no limitations Course Vital Signs 04/28/19 04/28/19 14:33 14:58 Temperature 99.0 F Pulse Rate 92 98 Respiratory 16 17 Rate Blood Pressure 128/88 137/87 O2 Sat by Pulse 100 92 L Oximetry Medical Decision Making - Medical Decision Making The patient was seen and examined. All diagnostics were reviewed. It is felt as though the patient is medically cleared for further psychiatric evaluation. The breath alcohol test was negative. The case is discussed with the psychiatric nurse and they're going to admit the patient to the hospital for further psychiatric treatment. It is felt as though this would be beneficial at this point. The patient apparently is agreeable as well. Disposition Clinical Impression: Auditory hallucination Disposition: ADMITTED IP TO THIS [facility] Condition: Fair Is patient prescribed a controlled substance at d/c from ED?: No Time of Disposition: 17:05
[2019-04-28 17:25] LABS: Amphetamine Screen,Urine Not Detected (NotDetected); Barbiturate Screen,Urine Not Detected (NotDetected); Benzodiazepines Screen,Urine Not Detected (NotDetected); Cocaine Screen,Urine Not Detected (NotDetected); Methadone Screen, Urine Not Detected (NotDetected); Opiate Screen,Urine Not Detected (NotDetected); Oxycodone Screen, Urine Not Detected (NotDetected); Phencyclidine Screen,Urine Not Detected (NotDetected); Tricyclic Antidepressant,Urine Not Detected (NotDetected); Urn Cannabinoid Scrn Not Detected (NotDetected)
[2019-04-28] MEDS ORDERED: ZIPRASIDONE 20 MG VIAL IM PRN (17:46)
[2019-04-28] MEDS ORDERED: MAGNESIUM HYDROXIDE 2,400 MG/10 ML CUP PO PRN (17:46)
[2019-04-28] MEDS ORDERED: MAG HYDROX/AL HYDROX/SIMETH 30 ML CUP PO PRN (17:46)
[2019-04-28] MEDS ORDERED: LORazepam 1 MG TAB PO PRN (17:46)
[2019-04-28] MEDS ORDERED: LORazepam 2 MG/ML INJ IM PRN (17:49)
[2019-04-28] MEDS ORDERED: BENZTROPINE 2 MG/2 ML AMP IM PRN (19:52)
[2019-04-28] MEDS: HALOPERIDOL LACTATE 5 MG/ML 1 ML VIAL IM PRN (20:51)
[2019-04-28] MEDS: BENZTROPINE MESYLATE 1 MG TAB PO PRN (20:51)
--- NOTE | 2019-04-28 21:46 | P.PN ---
Progress Note - Text Progress Note Date: 04/28/19 The patient is a 28-year-old male that presented with complaining of hearing voices and is thought to have schizophrenia, was called to evaluate the patient. On my arrival the patient is seen pacing the halls the nurses have reported that he is increasingly agitated despite receiving 2 mg of IM Geodon. The patient refused to be seen/evaluated and scheduled to receive a dose of Haldol and Cogentin. Nursing advised to call us when the patient is more amenable to being evaluated by medicine team.
[2019-04-28] MEDS: NICOTINE 14MG/24HR PATCH TRANSDERM SCH (22:24)
[2019-04-29] MEDS: NICOTINE 14MG/24HR PATCH TRANSDERM SCH (09:33)
[2019-04-29] MEDS ORDERED: LORazepam 2 MG/ML INJ IM PRN (13:10)
[2019-04-29] MEDS ORDERED: traZODone HCL 50 MG TAB PO PRN (13:11)
--- NOTE | 2019-04-29 13:18 | P.HP ---
Psychiatric H&P - . H&P Date: 04/29/19 History & Physical: Allergies Allergy/AdvReac Type Severity Reaction Status Date / Time diphenhydramine HCl Allergy Rash/Hives Verified 04/28/19 18:40 From Benadryl Vital Signs Temp 98.8 F 04/29/19 06:47 Pulse 61 04/29/19 06:47 Resp 17 04/29/19 06:47 BP 146/76 04/29/19 06:47 Pulse Ox 97 04/29/19 06:47 Intake & Output 04/28/19 04/29/19 04/29/19 18:59 06:59 18:59 Weight 90.718 kg 91.7 kg Laboratory Last Values Urine Opiates Screen Not Detected (NotDetected) 04/28/19 17:00 Ur Oxycodone Screen Not Detected (NotDetected) 04/28/19 17:00 Urine Methadone Screen Not Detected (NotDetected) 04/28/19 17:00 Ur Propoxyphene Screen Not Detected (NotDetected) 04/28/19 17:00 Ur Barbiturates Screen Not Detected (NotDetected) 04/28/19 17:00 U Tricyclic Antidepress Not Detected (NotDetected) 04/28/19 17:00 Ur Phencyclidine Scrn Not Detected (NotDetected) 04/28/19 17:00 Ur Amphetamines Screen Not Detected (NotDetected) 04/28/19 17:00 U Methamphetamines Scrn Not Detected (NotDetected) 04/28/19 17:00 U Benzodiazepines Scrn Not Detected (NotDetected) 04/28/19 17:00 Urine Cocaine Screen Not Detected (NotDetected) 04/28/19 17:00 U Marijuana (THC) Screen Not Detected (NotDetected) 04/28/19 17:00 04/29/19 13:06 IDENTIFYING DATA: Patient is a 28-year-old male with a history of schizophrenia who currently lives alone HPI: Patient presented to the hospital with complaints of auditory hallucinations. Patient received when necessary medications for agitation after being admitted to the unit. Patient has a history of schizophrenia and was last admitted to the mental health unit in 10/2016 and has been following up with [facility]. Patient was directable and agreeable to speak to junior underwriter however. To be suspicious/paranoid during conversation. Patient refuses to answer several questions especially about his life and where he lives due to his paranoia. Patient described the voices as saying "you have no idea what I'm capable of" and also "you have no one but me now". Patient states that the voices have been gradually increasing in frequency and intensity. He states that the Haldol decanoate that he was on previously was helping him however patient has been noncompliant with his medications. He had a poverty of thought and was guarded/evasive during the conversation. Patient was responding to internal stimuli during the interview. Patient mentioned that he does not want people to know where he lives and claims that "everybody in [place] knows me and I don't know them". Patient states that he is depressed and in a "shitty mood". He admits to poor sleep sleeping less than 6 hours. Fair energy and appetite. Patient denies any suicidal or homicidal ideations intent or plan. At this time patient denies any visual hallucinations. Patient denies any flight of ideas racing thoughts and increased in goal directed behavior. Patient admits to using cigarettes daily and denies any other recreational drug use or alcohol. PAST PSYCHIATRIC HISTORY: Patient states that he has history of schizoaffective disorder, has been following up with [facility] and states that he was last there yesterday. Patient states that he was previously on Haldol Decanoate 150 mg monthly injection and also Cymbalta and trazodone. Patient's last admission the mental unit was in 10/2016. He denies any history of suicide attempts. PMH:denies ALLERGIES: as per EMR CHEMICAL DEPENDENCY HISTORY: as per HPI FAMILY PSYCHIATRIC/SUBSTANCE USE HISTORY: denies SOCIAL HISTORY: Patient states that he was born and raised in [place] and moved to [place]. He claims that he made it to the eighth grade and then dropped out and does not want to share his work history and how he financially supports himself due to paranoia. He denies any children and claims that he is single. MENTAL STATUS EXAM: General Appearance: Patient appears to be stated age is overweight, alert, suspicious/paranoid. Poor hygiene and grooming. Behavior: Patient is calmly seated without any agitated behavior. To special/paranoid. Speech: Patient's speech is fluent and nonpressured. Mood/Affect: Patient reports their mood is depressed, affect is congruent and blunted affect Suicidality/Homicidality: Patient denies having any suicidal or homicidal ideation intent or plan. Perceptions: Patient denies any visual hallucinations. Admits to auditory hallucinations. Though content/process: Poverty of content/speech. Paranoid and delusional Memory and concentration: AOX3, grossly intact for the purposes of this session. Can spell "WORLD" backwards Judgment and insight: poor STRENGTHS/WEAKNESSES: strength is that patient is resilient, weaknesses that patient has poor insight and judgment. INTELLECT: Below average IMPRESSIONS: Schizoaffective disorder, depressive type Nicotine dependence PLAN: -Patient is admitted under voluntary status to MHU for stabilization of psychiatric symptoms and safety. Patient signed adult voluntary form and medication consent and is placed in patient's chart. -Medications : Will start patient on Haldol by mouth 3 mg twice a day for psychosis with plan to give patient a long-acting injection prior to discharge. Will also start Cogentin 1 mg twice a day for EPS prophylaxis. Will start uriel onin 5 mg nightly for sleep regulation. Trazodone 50 mg daily at bedtime when necessary for sleep/mood. Patient has previously been on Cymbalta in the past and we'll consider restarting in the near future if needed. -Haldol and Ativan PRN for agitation/aggression -Patient was informed of the risks, benefits and side effects of the medication and patient verbally consented to taking the medications. Patient signed med consent form and was placed in chart. -NRT -not need this patient does not smoke. - on board for discharge planning. We'll continue to work with patient on encouraging to participate in milieu and also provide contact for relatives or caregiver. Patient is established with [facility] and will likely need long acting injection prior to discharge. 04/29/19 13:08 04/29/19 13:11
[2019-04-29] MEDS: HALOPERIDOL ORAL SOLN 10 MG/5 ML CUP PO SCH ×2 (15:19→19:54)
[2019-04-29] MEDS: BENZTROPINE MESYLATE 1 MG TAB PO PRN ×2 (17:19→19:57)
--- NOTE | 2019-04-29 17:21 | P.CONS ---
History of Present Illness - Reason for Consult Consult date: 04/29/19 - History of Present Illness The patient is a 28-year-old male with a past medical history of schizoaffective disorder who presented to the ED due to hearing voices. The patient notes that he has been suffering with this for most of his life and that it is very bothersome. The patient was very guarded during the interview and was not forthcoming. He denied any other past medical history and reports that he does not take any medications at home. He reports feeling "terrible" due to schizoaffective disorder but denied any physical complaints.He denied chest pain, shortness of breath, nausea, vomiting, fever, chills, abdominal pain, dizziness, or headache. Review of Systems Pertinent positives and negatives as discussed in HPI, a complete review of systems was performed and all other systems are negative. Past Medical History Past Medical History: No Reported History History of Any Multi-Drug Resistant Organisms: None Reported Past Surgical History: Appendectomy Additional Past Surgical History / Comment(s): Pt reports he has no money and is depressed. Past Psychological History: Depression, Schizoaffective Disorder Smoking Status: Current every day smoker Past Alcohol Use History: None Reported Additional Past Alcohol Use History / Comment(s): Patient is a smoker of 1 pack a day for 11 years. He denies any medical marijuana, marijuana, street drug use. He uses alcohol occasionally. Past Drug Use History: None Reported - Past Family History Father Additional Family Medical History / Comment(s): Patient will state that his parents of mother and father are both alive but he does not know their medical history. When asked about his brothers and sisters he just states I don't know. Medications and Allergies Home Medications Medication Instructions Recorded Confirmed Type Benztropine Mesylate [Cogentin] 1 mg PO BID #60 11/16/16 04/28/19 Rx DULoxetine HCL [Cymbalta] 60 mg PO DAILY #30 cap 11/16/16 04/28/19 Rx Ergocalciferol [Vitamin D2] 50,000 unit PO Q7D 04/28/19 04/28/19 History Haldol Decanoate 100mg/Ml Oil 150 mg IM Q28D 04/28/19 04/28/19 History Loratadine [Claritin] 10 mg PO DAILY 04/28/19 04/28/19 History Nicotine Polacrilex [Quit 4] 4 mg BUCCAL Q4H PRN 04/28/19 04/28/19 History traZODone HCL [Desyrel] 100 mg PO HS 04/28/19 04/28/19 History Allergies Allergy/AdvReac Type Severity Reaction Status Date / Time diphenhydramine HCl Allergy Rash/Hives Verified 04/28/19 18:40 [From Benadryl] Physical Exam Vitals: Vital Signs Temp Pulse Resp BP Pulse Ox 04/29/19 06:47 98.8 F 61 17 146/76 97 04/28/19 18:20 98.4 F 89 16 148/91 General: Non-toxic, in no acute distress, appears stated age, obese HEENT: Patient refused to be examined Cardiovascular: Refused Lungs: Refused Abdominal: Refused Skin: Visible areas of skin appear normal Extremities: No obvious deformities Psychiatric: Awake, alert, guarded Neuro: Normal gait, moving all extremities Assessment and Plan Plan: Schizaffective disorder -As per psychiatry Obese -Advised on need for lifestyle modifications Thank you for allowing us to participate in the care of this patient. We will follow peripherally. Do not hesitate to contact us with questions. Someone can be reached from the [facility] hospitalist group at all hours of the day at [phone].
[2019-04-29] MEDS: MELATONIN 5 MG TABLET PO SCH (19:55)
[2019-04-30] MEDS: HALOPERIDOL ORAL SOLN 10 MG/5 ML CUP PO SCH ×2 (09:12→21:21)
[2019-04-30] MEDS: BENZTROPINE MESYLATE 1 MG TAB PO PRN ×2 (09:15→21:43)
--- NOTE | 2019-04-30 11:22 | P.PN ---
Progress Note - Text Progress Note Date: 04/30/19 Interval History: Patient was seen wandering the hallways pacing back and forth and initially de clined to be interviewed by comic book writer however approached comic book writer several minutes later and states that he would like to talk in the office. Patient continues to be hesitant/paranoid with poverty of content and speech. Patient is guarded/evasive and answers only certain questions. Patient claims that he does not trust comic book writer and does not trust anybody else on the unit. Patient continues to be bizarre and have poor insight and judgment. He states that he slept through the night and has been taking his Haldol. He is preoccupied with discharge. He states that he is not going to go to any groups while he is here on the unit. Fair energy and appetite. At this time patient denies any suicidal or homical ideations, intent or plan. Patient denies any visual hallucinations however admits to ongoing auditory hallucinations which have been mildly improving. Patient denies any side effects from the medications and has been compliant with meds. Mental Status Exam: General Appearance: Patient appears to be stated age is overweight, alert, suspicious/paranoid. Poor hygiene and grooming. Behavior: Patient is calmly seated without any agitated behavior. Evasive/paranoid. Speech: Patient's speech is fluent and nonpressured. Mood/Affect: Patient reports their mood is depressed, affect is congruent and blunted affect Suicidality/Homicidality: Patient denies having any suicidal or homicidal ideation intent or plan. Perceptions: Patient denies any visual hallucinations. Admits to auditory hallucinations. Though content/process: Poverty of content/speech. Paranoid and delusional Memory and concentration: AOX3, grossly intact for the purposes of this session. Judgment and insight: poor Assessment Schizoaffective disorder, depressive type Nicotine dependence Plan: -Patient continues to meet criteria for inpatient psychiatric admission for symptom stabilization and safety. Patient has signed adult voluntary form and medication consent and was placed in patient's chart. -Medications: Will increase Haldol by mouth 5 mg twice a day for psychosis. Plan to give Haldol Decanoate long-acting injection prior to discharge. Patient was previously on 200 mg every monthly. Continue with Cogentin 1 mg 3 times a day when necessary for EPS prophylaxis. Continue with melatonin 5 mg nightly for sleep regulation. Continue with trazodone 50 mg nightly when necessary for mood/sleep. We'll start Cymbalta 30 mg daily for mood. -When necessary Haldol and Ativan for agitation/aggression. -NRT -not need this patient does not smoke. -SW on board for discharge planning. We'll continue to work with patient on encouraging to participate in milieu and also provide contact for relatives or caregiver. Patient is established with [facility]
[2019-04-30] MEDS: DULoxetine HCL 30 MG CAPSULE.DR PO SCH ×2 (11:36→11:38)
[2019-04-30] MEDS: MELATONIN 5 MG TABLET PO SCH (21:22)
[2019-05-01] MEDS: HALOPERIDOL LACTATE 5 MG/ML 1 ML VIAL IM PRN (05:29)
[2019-05-01] MEDS: HALOPERIDOL ORAL SOLN 10 MG/5 ML CUP PO SCH ×2 (09:40→20:58)
[2019-05-01] MEDS: DULoxetine HCL 30 MG CAPSULE.DR PO SCH ×2 (09:40→09:46)
--- NOTE | 2019-05-01 12:23 | P.PN ---
Progress Note - Text Progress Note Date: 05/01/19 Interval History: Patient was seen wandering the hallways pacing back and forth and was agreeable to speak to chief underwriter in the office. Patient continues to be hesitant/paranoid with poverty of content and speech and only answers certain questions that chief underwriter asks him. Patient states that he was upset and agitated early this morning and was banging on the [place] while other people were sleeping. When asked why he was doing this patient states that "because I wanted to go home and I don't want to be here". Patient was focused on discharge today and continues to have minimal insight and judgment. He states that he is taking his medications and claims that it is helping him with his voices and getting them to "get quieter". Patient declined taking his Cymbalta yesterday and states that "it keeps me up all night" and wanted to be started on a different antidepressant medication to help with his mood and was agreeable to start Zoloft today. Patient was also agreeable to have his Haldol increased. He states that he is not going to go to any groups while he is here on the unit as "I don't want other people to know about my business". Fair energy and appetite. At this time patient denies any suicidal or homical ideations, intent or plan. Patient denies any visual hallucinations however admits to ongoing auditory hallucinations which have been mildly improving. Patient denies any side effects from the medications and has been compliant with meds. Mental Status Exam: General Appearance: Patient appears to be stated age is overweight, alert, suspicious/paranoid. Poor hygiene and grooming. Behavior: Patient is calmly seated without any agitated behavior. Evasive/paranoid, minimally improved. Speech: Patient's speech is fluent and nonpressured. Mood/Affect: Patient reports their mood is depressed, affect is congruent and blunted affect Suicidality/Homicidality: Patient denies having any suicidal or homicidal ideation intent or plan. Perceptions: Patient denies any visual hallucinations. Admits to auditory hallucinations which have mildly improved. Though content/process: Poverty of content/speech. Paranoid and delusional Memory and concentration: AOX3, grossly intact for the purposes of this session. Judgment and insight: poor Assessment Schizoaffective disorder, depressive type Nicotine dependence Plan: -Patient continues to meet criteria for inpatient psychiatric admission for symptom stabilization and safety. Patient has signed adult voluntary form and medication consent and was placed in patient's chart. -Medications: Will increase Haldol by mouth 7 mg twice a day for psychosis. Plan to give Haldol Decanoate long-acting injection prior to discharge. Patient was previously on 150 mg every monthly as per [facility] liaison who looked back on old [facility] records that stated that patient got his last injection in July 2018. Continue with Cogentin 1 mg 3 times a day when necessary for EPS prophylaxis. Increased melatonin 10 mg nightly for sleep regulation. Continue with trazodone 50 mg nightly when necessary for mood/sleep. We'll start Zoloft 50 mg daily for mood. -When necessary Haldol and Ativan for agitation/aggression. -NRT -not need this patient does not smoke. -SW on board for discharge planning. We'll continue to work with patient on encouraging to participate in milieu and also provide contact for relatives or caregiver. Patient is established with [facility]
[2019-05-01] MEDS: SERTRALINE 50 MG TAB PO SCH (12:28)
[2019-05-01] MEDS: MELATONIN 5 MG TABLET PO SCH (20:58)
[2019-05-02] MEDS: HALOPERIDOL ORAL SOLN 10 MG/5 ML CUP PO SCH ×2 (08:48→20:11)
[2019-05-02] MEDS: SERTRALINE 50 MG TAB PO SCH (08:48)
[2019-05-02] MEDS: BENZTROPINE MESYLATE 1 MG TAB PO PRN (08:51)
--- NOTE | 2019-05-02 12:07 | P.PN ---
Progress Note - Text Progress Note Date: 05/02/19 Interval History: Patient was seen wandering the hallways, pacing back and forth and was agreeable to speak to film writer in the office. Patient continues to be hesitant/paranoid with film writer however was able to be more communicative today and speak more about his symptoms. He states that the voices have been improving and he feels less paranoid however still does not trust the film writer. When asked about his sleep he states "why does that matter?" And eventually stated that he slept poorly. Carin mcmanus was focused on discharge today and continues to have minimal insight and judgment however is taking his medications. Patient was agreeable to have his Zoloft increased for tomorrow and claims that he is helping him with his mood mildly at this time. He states that he is not going to go to any groups while he is here on the unit. Fair energy and appetite. At this time patient denies any suicidal or homical ideations, intent or plan. Patient denies any visual hallucinations however admits to ongoing auditory hallucinations which have been mildly improving. Patient denies any side effects from the medications and has been compliant with meds. Mental Status Exam: General Appearance: Patient appears to be stated age is overweight, alert, suspicious/paranoid, mildly improving. Poor hygiene and grooming. Behavior: Patient is calmly seated without any agitated behavior. Evasive/paranoid, mildly improving. Speech: Patient's speech is fluent and nonpressured. Mood/Affect: Patient reports their mood is depressed, affect is congruent and blunted affect Suicidality/Homicidality: Patient denies having any suicidal or homicidal ideation intent or plan. Perceptions: Patient denies any visual hallucinations. Admits to auditory hallucinations which have mildly improved. Though content/process: Poverty of content/speech. Paranoid and delusional Memory and concentration: AOX3, grossly intact for the purposes of this session. Judgment and insight: poor, mildly improving. Assessment Schizoaffective disorder, depressive type Nicotine dependence Plan: -Patient continues to meet criteria for inpatient psychiatric admission for symptom stabilization and safety. Patient has signed adult voluntary form and medication consent and was placed in patient's chart. -Medications: Will continue with Haldol by mouth 7 mg twice a day for psychosis. Plan to give Haldol Decanoate long-acting injection prior to discharge. Patient was previously on 150 mg every monthly as per [facility] liaison who looked back on old [facility] records that stated that patient got his last injection in July 2018. Continue with Cogentin 1 mg 3 times a day when necessary for EPS prophylaxis. Continue with melatonin 10 mg nightly for sleep regulation. Scheduled trazodone 50 mg nightly for mood/sleep. Increased Zoloft 100 mg daily for mood. -When necessary Haldol and Ativan for agitation/aggression. -NRT -not need this patient does not smoke. -SW on board for discharge planning. We'll continue to work with patient on encouraging to participate in milieu and also provide contact for relatives or caregiver. Patient is established with [facility]
[2019-05-02] MEDS: MELATONIN 5 MG TABLET PO SCH (20:13)
[2019-05-02] MEDS: traZODone HCL 50 MG TAB PO SCH (20:14)
[2019-05-03] MEDS: HALOPERIDOL ORAL SOLN 10 MG/5 ML CUP PO SCH ×2 (08:06→20:34)
[2019-05-03] MEDS: SERTRALINE 100 MG TAB PO SCH (08:06)
--- NOTE | 2019-05-03 08:16 | P.PN ---
Progress Note - Text Progress Note Date: 05/03/19 Interval History: Patient was seen wandering the hallways, before breakfast and was agreeable to speak to instructional writer in the office. Patient continues to be hesitant/paranoid however has been improving mildly. He offers no overnight complaints and states that he's been sleeping a little bit better. Patient also claims that his mood has been mildly improving due to the Zoloft. Patient continues to be focused on discharge and asked about his long-acting injection. He continues to refuse to go to groups. Patient is agreeable to have his Haldol increased and denies any side effects from it. Fair energy and appetite. At this time patient denies any suicidal or homical ideations, intent or plan. Patient denies any visual hallucinations however admits to ongoing auditory hallucinations which have been mildly improving. Patient denies any side effects from the medications and has been compliant with meds. Mental Status Exam: General Appearance: Patient appears to be stated age is overweight, alert, suspicious/paranoid, mildly improving. Poor hygiene and grooming. Behavior: Patient is calmly seated without any agitated behavior. Speech: Patient's speech is fluent and nonpressured. Mood/Affect: Patient reports their mood is depressed, mildly improving, affect is congruent and blunted affect Suicidality/Homicidality: Patient denies having any suicidal or homicidal ideation intent or plan. Perceptions: Patient denies any visual hallucinations. Admits to auditory hallucinations which have mildly improving Though content/process: Poverty of content/speech. Paranoid and delusional Memory and concentration: AOX3, grossly intact for the purposes of this session. Judgment and insight: poor, mildly improving. Assessment Schizoaffective disorder, depressive type Nicotine dependence Plan: -Patient continues to meet criteria for inpatient psychiatric admission for symptom stabilization and safety. Patient has signed adult voluntary form and medication consent and was placed in patient's chart. -Medications: Will increase Haldol by mouth 7 mg daily + 10 mg daily at bedtime for psychosis. Plan to give Haldol Decanoate long-acting injection prior to discharge. Patient was previously on 150 mg every monthly as per [facility] liaison who looked back on old [facility] records that stated that patient got his last injection in July 2018. Continue with Cogentin 1 mg 3 times a day when necessary for EPS prophylaxis. Continue with melatonin 10 mg nightly for sleep regulation. Scheduled trazodone 50 mg nightly for mood/sleep. Continue with Zoloft 100 mg daily for mood. -When necessary Haldol and Ativan for agitation/aggression. -NRT -not need this patient does not smoke. -SW on board for discharge planning. We'll continue to work with patient on encouraging to participate in milieu and also provide contact for relatives or caregiver. Patient is established with [facility]
[2019-05-03] MEDS: traZODone HCL 50 MG TAB PO SCH (20:34)
[2019-05-03] MEDS: MELATONIN 5 MG TABLET PO SCH (20:34)
[2019-05-04] MEDS: HALOPERIDOL ORAL SOLN 10 MG/5 ML CUP PO SCH ×2 (08:31→20:18)
[2019-05-04] MEDS: SERTRALINE 100 MG TAB PO SCH (08:31)
--- NOTE | 2019-05-04 10:24 | P.PN ---
Progress Note - Text Progress Note Date: 05/04/19 Interval History: Patient was seen wandering the hallways, and was agreeable to speak to chief writer in the office. Patient continues to be paranoid and guarded towards chief writer and is superficially cooperative. He states that he is feeling "a little bit better" when asked about his mood. He continues to be guarded and evasive about where he lives and his family and states "I don't see why they have to come in and you to talk to them". Patient states that he does not trust chief writer talking to his family. He offers no overnight complaints and states that he's been sleeping a little bit better. Patient continues to be focused on discharge and asked about his long-acting injection. He continues to refuse to go to groups. Fair energy and appetite. At this time patient denies any suicidal or homical ideations, intent or plan. Patient denies any visual hallucinations however admits to ongoing auditory hallucinations which have been mildly improving. Patient denies any side effects from the medications and has been compliant with meds. Mental Status Exam: General Appearance: Patient appears to be stated age is overweight, alert, suspicious/paranoid, mildly improving. Improving hygiene and grooming. Behavior: Patient is calmly seated without any agitated behavior. Speech: Patient's speech is fluent and nonpressured. Mood/Affect: Patient reports their mood is depressed, mildly improving, affect is congruent and constricted affect. Suicidality/Homicidality: Patient denies having any suicidal or homicidal ideation intent or plan. Perceptions: Patient denies any visual hallucinations. auditory hallucinations have mildly improving Though content/process: Poverty of content/speech. Paranoid and delusional Memory and concentration: AOX3, grossly intact for the purposes of this session. Judgment and insight: poor, mildly improving. Assessment Schizoaffective disorder, depressive type Nicotine dependence Plan: -Patient continues to meet criteria for inpatient psychiatric admission for symptom stabilization and safety. Patient has signed adult voluntary form and medication consent and was placed in patient's chart. -Medications: Will continue with Haldol by mouth 7 mg daily + 10 mg daily at bedtime for psychosis. Plan to give Haldol Decanoate long-acting injection p rior to discharge. Patient was previously on 150 mg every monthly as per [facility] liaison who looked back on old [facility] records that stated that patient got his last injection in July 2018. Continue with Cogentin 1 mg 3 times a day when necessary for EPS prophylaxis. Continue with melatonin 10 mg nightly for sleep regulation. Scheduled trazodone 50 mg nightly for mood/sleep. Continue with Zoloft 100 mg daily for mood, consider titrating up tomorrow if needed. -When necessary Haldol and Ativan for agitation/aggression. -NRT -not need this patient does not smoke. -SW on board for discharge planning. We'll continue to work with patient on encouraging to participate in milieu and also provide contact for relatives or caregiver. Patient is established with [facility]. Asked patient to contact his dashawn kim to have her come and visit to establish patient's baseline.
[2019-05-04] MEDS: BENZTROPINE MESYLATE 1 MG TAB PO PRN (20:17)
[2019-05-04] MEDS: MELATONIN 5 MG TABLET PO SCH (20:17)
[2019-05-04] MEDS: traZODone HCL 50 MG TAB PO SCH (20:20)
[2019-05-04] MEDS: ACETAMINOPHEN TAB 325 MG TAB PO PRN (20:56)
[2019-05-05] MEDS: HALOPERIDOL ORAL SOLN 10 MG/5 ML CUP PO SCH ×2 (08:32→20:18)
[2019-05-05] MEDS: SERTRALINE 100 MG TAB PO SCH (08:32)
--- NOTE | 2019-05-05 11:27 | P.PN ---
Progress Note - Text Progress Note Date: 05/05/19 Interval History: Patient was seen laying down in his bed and was agreeable to speak to lead technical writer in the office. Patient is more cooperative this morning and more directable. Patient appears to be improving in terms of his paranoia and suspiciousness. Patient was more open about his night and states that he slept well. Patient claims that he refused the trazodone as "I didn't need it". Patient continues to refuse to answer questions about his mother and his discharge plan however is agreeable to take the long-acting Haldol D shot today.He states that he is feeling "better" when asked about his mood. Patient denies any muscle stiffness or any tremors at this time and claims that he's been taking the Cogentin when needed. He continues to refuse to go to groups and participate. Fair energy and appetite. At this time patient denies any suicidal or homical ideations, intent or plan. Patient denies any visual hallucinations however admits improvement in his auditory hallucinations. Patient denies any side effects from the medications and has been compliant with meds. Mental Status Exam: General Appearance: Patient appears to be stated age is overweight, alert, suspicious/paranoid, mildly improving. Improving hygiene and grooming. Behavior: Patient is calmly seated without any agitated behavior. Speech: Patient's speech is fluent and nonpressured. Mood/Affect: Patient reports their mood is "better", affect is congruent and constricted affect. Suicidality/Homicidality: Patient denies having any suicidal or homicidal ideation intent or plan. Perceptions: Patient denies any visual hallucinations. auditory hallucinations have improved. Though content/process: Poverty of content/speech. Less paranoia, does not endorse delusions. Memory and concentration: AOX3, grossly intact for the purposes of this session. Judgment and insight: poor, mildly improving. Assessment Schizoaffective disorder, depressive type Nicotine dependence Plan: -Patient continues to meet criteria for inpatient psychiatric admission for symptom stabilization and safety. Patient has signed adult voluntary form and medication consent and was placed in patient's chart. -Medications: Will decrease Haldol by mouth 7 mg twice a day for psychosis. Plan to give Haldol Decanoate long-acting injection 100 mg today. Patient will likely require a second 100 mg dose IM to be given prior to discharge. Continue with Cogentin 1 mg 3 times a day when necessary for EPS prophylaxis. Continue with melatonin 10 mg nightly for sleep regulation. Continue with trazodone 50 mg nightly for mood/sleep. Continue with Zoloft 100 mg daily for mood. -When necessary Haldol and Ativan for agitation/aggression. -NRT -not need this patient does not smoke. -SW on board for discharge planning. We'll continue to work with patient on encouraging to participate in milieu and also provide contact for relatives or caregiver. Patient is established with [facility]. Likely discharge in 2-3 days.
[2019-05-05 13:33] VITALS: BMI 30.8
[2019-05-05] MEDS: BENZTROPINE MESYLATE 1 MG TAB PO PRN (16:44)
[2019-05-05] MEDS ORDERED: HALOPERIDOL DECANOATE 100 MG/ML 1 ML VIAL IM ONE (17:00)
[2019-05-05] MEDS: MELATONIN 5 MG TABLET PO SCH (20:18)
[2019-05-05] MEDS: traZODone HCL 50 MG TAB PO SCH (21:48)
[2019-05-06] MEDS: SERTRALINE 100 MG TAB PO SCH (08:26)
[2019-05-06] MEDS: HALOPERIDOL ORAL SOLN 10 MG/5 ML CUP PO SCH ×2 (08:28→20:03)
--- NOTE | 2019-05-06 10:33 | P.PN ---
Progress Note - Text Progress Note Date: 05/06/19 Interval History: Patient was seen wandering the hallways and was agreeable to speak to commercial underwriter in the office. Patient appears to be cooperative this morning and more directable. Patient at [facility] continues to be concrete and is guarded about his condition. He offers no overnight complaints and states that he slept well last night. He did state that he feels "jittery and some tightness" after he takes the Haldol oral solution however has been taking Cogentin to help relieve the EPS side effects of the Haldol. Patient continues to refuse to answer certain questions about his mother and family. He claims that his mood is "alright" and denies any depressive symptoms at this time. He states that he feels the Zoloft is helping his mood. Patient continues to focus on discharge and wanting to get his second dose of Haldol D. It was explained to patient that he will receive this tomorro w. Patient denies any tremors at this time. He continues to refuse to go to groups and participate. Fair energy and appetite. At this time patient denies any suicidal or homical ideations, intent or plan. Patient denies any visual hallucinations however admits improvement in his auditory hallucinations. Patient denies any side effects from the medications and has been compliant with meds. Mental Status Exam: General Appearance: Patient appears to be stated age is overweight, alert, suspicious/paranoid, mildly improving. Improving hygiene and grooming. Behavior: Patient is calmly seated without any agitated behavior. Speech: Patient's speech is fluent and nonpressured. Mood/Affect: Patient reports their mood is "alright", affect is congruent and constricted affect. Suicidality/Homicidality: Patient denies having any suicidal or homicidal ideation intent or plan. Perceptions: Patient denies any visual hallucinations. auditory hallucinations are improving and not distressing to patient. Though content/process: Poverty of content/speech. Less paranoid, does not endorse delusions. Memory and concentration: AOX3, grossly intact for the purposes of this session. Judgment and insight: poor, mildly improving. Assessment Schizoaffective disorder, depressive type Nicotine dependence Plan: -Patient continues to meet criteria for inpatient psychiatric admission for symptom stabilization and safety. Patient has signed adult voluntary form and medication consent and was placed in patient's chart. -Medications: Will continue with decreasing Haldol by mouth 5 mg twice a day for psychosis. First dose of Haldol Decanoate long-acting injection 100 mg was given on 05/05/2019 and will do for her next dose of 100 mg on 05/07/2019. Continue with Cogentin 1 mg 3 times a day when necessary for EPS prophylaxis. Continue with melatonin 10 mg nightly for sleep regulation. We'll discontinue trazodone as patient is not taking it. Continue with Zoloft 100 mg daily for mood. -When necessary Haldol and Ativan for agitation/aggression. -NRT -not need this patient does not smoke. -SW on board for discharge planning. We'll continue to work with patient on encouraging to participate in milieu and also provide contact for relatives or caregiver. Patient is established with [facility]. Likely discharge in 2-3 days.
[2019-05-06] MEDS: MELATONIN 5 MG TABLET PO SCH (20:02)
[2019-05-07] MEDS: SERTRALINE 100 MG TAB PO SCH (08:23)
[2019-05-07] MEDS: HALOPERIDOL ORAL SOLN 10 MG/5 ML CUP PO SCH (08:24)
--- NOTE | 2019-05-07 11:15 | P.PN ---
Progress Note - Text Progress Note Date: 05/07/19 Interval History: Patient was seen lying in his bed and was agreeable to speak to typewriter ribbon winder in the office. Patient appears to be cooperative this morning and directable. Patient is concrete however appears to have an improved affect and states that he feels "better today".. He offers no overnight complaints and states that he slept well last night. He continues to endorse feeling "shaky at times" however states that the Cogentin has been helping him. He denies any depressive symptoms at this time. Patient continues to focus on discharge and wanting to get his second dose of Haldol D this afternoon. Patient denies any tremors at this time. He continues to refuse to go to groups and participate. Fair energy and appetite. At this time patient denies any suicidal or homical ideations, intent or plan. Patient denies any visual hallucinations however admits to continuous improvement in his auditory hallucinations. Patient has been compliant with meds. Mental Status Exam: General Appearance: Patient appears to be stated age is overweight, alert, directable. Improving hygiene and grooming. Behavior: Patient is calmly seated without any agitated behavior. Speech: Patient's speech is fluent and nonpressured. Mood/Affect: Patient reports their mood is "better", affect is congruent and constricted affect, mildly improved. Suicidality/Homicidality: Patient denies having any suicidal or homicidal ideation intent or plan. Perceptions: Patient denies any visual hallucinations. auditory hallucinations have improved. Though content/process: Poverty of content/speech. Less paranoid, does not endorse delusions. Memory and concentration: AOX3, grossly intact for the purposes of this session. Judgment and insight: mildly improving. Assessment Schizoaffective disorder, depressive type Nicotine dependence Plan: -Patient continues to meet criteria for inpatient psychiatric admission for symptom stabilization and safety. Patient has signed adult voluntary form and medication consent and was placed in patient's chart. -Medications: Will continue with decreasing Haldol by mouth 3 mg twice a day for psychosis. First dose of Haldol Decanoate long-acting injection 100 mg was given on 05/05/2019 and will do for her next dose today. Continue with Cogentin 1 mg 3 times a day when necessary for EPS prophylaxis. Continue with melatonin 10 mg nightly for sleep regulation. Continue with Zoloft 100 mg daily for mood. -When necessary Haldol and Ativan for agitation/aggression. -NRT -not need this patient does not smoke. -SW on board for discharge planning. We'll continue to work with patient on encouraging to participate in milieu and also provide contact for relatives or caregiver. Patient is established with [facility]. Likely discharge tomorrow back to his home.
[2019-05-07] MEDS: BENZTROPINE MESYLATE 1 MG TAB PO PRN ×2 (12:11→20:07)
[2019-05-07] MEDS ORDERED: HALOPERIDOL DECANOATE 100 MG/ML 1 ML VIAL IM ONE (16:00)
[2019-05-07] MEDS: ACETAMINOPHEN TAB 325 MG TAB PO PRN (17:33)
[2019-05-07] MEDS: HALOPERIDOL 1 MG TAB PO SCH ×3 (19:52→20:06)
[2019-05-07] MEDS: MELATONIN 5 MG TABLET PO SCH (19:53)
[2019-05-08 06:33] VITALS: BP 122/62; PULSE 67; RESP 18; TEMP 98.6
[2019-05-08] MEDS: SERTRALINE 100 MG TAB PO SCH (09:29)
[2019-05-08] MEDS: HALOPERIDOL 1 MG TAB PO SCH (09:29)
--- NOTE | 2019-05-08 09:44 | P.DS ---
Providers Date of admission: 04/28/19 17:24 Expected date of discharge: 05/08/19 Attending physician: Benji Carlson MD Consults: 04/28/19 17:46 Consult Physician Routine Consulting Provider: Chriss Galdamez Consult Reason/Comments: H&P and medical Do you want consulting provider notified?: Yes Primary care physician: Stated None - Discharge Diagnosis(es) (1) Schizoaffective disorder, depressive type Current Visit: Yes Status: Acute Priority: High (2) Nicotine dependence Current Visit: Yes Status: Acute Priority: Low Hospital Course: Admission HPI: Patient is a 28-year-old male with a history of schizophrenia who currently lives alone. Patient presented to the hospital with complaints of auditory hallucinations. Patient received when necessary medications for agitation after being admitted to the unit. Patient has a history of schizophrenia and was last admitted to the mental health unit in 10/2016 and has been following up with [facility]. Patient was directable and agreeable to speak to automobile and property underwriter however. To be suspicious/paranoid during conversation. Patient refuses to answer several questions especially about his life and where he lives due to his paranoia. Patient described the voices as saying "you have no idea what I'm capable of" and also "you have no one but me now". Patient states that the voices have been gradually increasing in frequency and intensity. He states that the Haldol decanoate that he was on previously was helping him however patient has been noncompliant with his medications. He had a poverty of thought and was guarded/evasive during the conversation. Patient was responding to internal stimuli during the interview. Patient mentioned that he does not want people to know where he lives and claims that "everybody in [place] knows me and I don't know them". Patient states that he is depressed and in a "shitty mood". He admits to poor sleep sleeping less than 6 hours. Fair energy and appetite. Patient denies any suicidal or homicidal ideations intent or plan. At this time patient denies any visual hallucinations. Patient denies any flight of ideas racing thoughts and increased in goal directed behavior. Patient admits to using cigarettes daily and denies any other recreational drug use or alcohol. Hospital course: Upon admission to the unit patient was initially paranoid, psychotic and depressed. Patient was however directable and agreeable to commence treatment. Patient got along well with other patients on the unit and followed unit protocol however chose not to participate in groups/activities on the unit. Patient was compliant with the medications throughout hospitalization. Patient was started on Haldol by mouth which was titrated up to a total dose of 17 mg daily for psychosis. Patient was given 1 dose of Haldol Decanoate injection 100 mg on and also another 100 mg IM dose on 05/07/2019 and patient tolerated the injections well. Patient will be due for his next long-acting injection of 200 mg on 06/02/2019 and monthly thereafter. Patient was also titrated up to a dose of 100 mg of sertraline daily for mood and also 10 mg nightly of melatonin for sleep. Patient was fairly guarded about his stressors throughout hospitalization and minimally participated in individual therapy, patient did not engage in group therapy. Patient was also seen by medical team for history and physical exam. Throughout the course of the hospitalization patient gradually improved with regards to mood, psychosis and paranoia, sleep and became future oriented with improved insight and judgment. Patient did mention that he has some mild stiffness and feeling "jittery" after taking the by mouth Haldol which most likely correlated to EPS symptoms and patient was placed on Cogentin 1 mg 3 times a day when necessary for EPS prophylaxis which he claims helped significantly. On the day of discharge patient denied any suicidal or homicidal ideations intent or plan denied any auditory or visual hallucinations. Patient endorsed wanting to live for his health and family. The patient denied any access to guns or weapons. Patient denied any paranoia and did not endorse any delusions. Patient does not have a significant history of substance abuse however was counseled on abstaining from all substances including alcohol and marijuana. Patient was also counseled on the medications and need for regular compliance and was encouraged to follow-up with their outpatient appointment for mental health and also for primary care. Prior to discharge a family meeting will be arranged by healthcare social worker to answer any questions and ensure safety upon discharge. Mental status exam: General Appearance: Patient appears to be stated age is alert, directable and more cooperative. Patient is in no acute distress and has fair hygiene and grooming Behavior: Patient is calmly seated without any agitated behavior. Attempts to cooperate, less guarded today. Speech: Patient's speech is fluent and nonpressured. [place]. Mood/Affect: Patient reports their mood is "alright", affect is congruent and euthymic. Suicidality/Homicidality: Patient denies having any suicidal or homicidal ideation intent or plan. Perceptions: Patient denies any auditory or visual hallucinations. Though content/process: There is no evidence of any delusional thought content and thought process is linear and goal-directed. Patient is less guarded today and concrete Memory and concentration: AOX3, grossly intact for the purposes of this session. Can spell "WORLD" backwards correctly. Judgment and insight: improved, guarded prognosis. Impression: Schizoaffective disorder, depressive type Nicotine dependence Plan: -Continue with discharge today as patient has improved and stabilized psychiatrically and is not currently an imminent threat to himself and/or others. -Continue medications: Continue with Zoloft 100 mg daily for mood and melatonin 10 mg nightly for sleep. PO haloperidol was discontinued prior to discharge. Patient was given 1 dose of Haldol Decanoate injection 100 mg on and also another 100 mg IM dose on 05/07/2019 and patient tolerated the injections well. Patient will be due for his next long-acting injection of 200 mg on 06/02/2019 and monthly thereafter. Patient can continue with Cogentin 1 mg 3 times a day when necessary for EPS prophylaxis. -Patient was counseled on the need for medication compliance and appropriate follow-up at mental health and also primary care for medical issues. Patient verbalized understanding and agreed. -Social work to arrange for and conduct family meeting to ensure safety upon discharge and answer any questions/concerns. Social work also to arrange for patients follow up appointments with [facility] for psychiatric care along with follow up with primary care provider. -Patient counseled on abstaining from recreational drugs and marijuana and alcohol. Was informed/educated on the adverse effects on their physical and mental health. Patient verbally agreed and understood -Patient was instructed to return to the hospital or seek immediate medical care if their psychiatric or medical symptoms do worsen or reoccur. Allergies Allergy/AdvReac Type Severity Reaction Status Date / Time diphenhydramine HCl Allergy Rash/Hives Verified 04/28/19 18:40 [From Benadryl] Laboratory Results Urine Opiates Screen Not Detected (NotDetected) 04/28/19 17:00 Ur Oxycodone Screen Not Detected (NotDetected) 04/28/19 17:00 Urine Methadone Screen Not Detected (NotDetected) 04/28/19 17:00 Ur Propoxyphene Screen Not Detected (NotDetected) 04/28/19 17:00 Ur Barbiturates Screen Not Detected (NotDetected) 04/28/19 17:00 U Tricyclic Antidepress Not Detected (NotDetected) 04/28/19 17:00 Ur Phencyclidine Scrn Not Detected (NotDetected) 04/28/19 17:00 Ur Amphetamines Screen Not Detected (NotDetected) 04/28/19 17:00 U Methamphetamines Scrn Not Detected (NotDetected) 04/28/19 17:00 U Benzodiazepines Scrn Not Detected (NotDetected) 04/28/19 17:00 Urine Cocaine Screen Not Detected (NotDetected) 04/28/19 17:00 U Marijuana (THC) Screen Not Detected (NotDetected) 04/28/19 17:00 Vital Signs Temp 98.6 F 05/08/19 06:33 Pulse 67 05/08/19 06:33 Resp 18 05/08/19 06:33 BP 122/62 05/08/19 06:33 Pulse Ox 97 05/06/19 04:52 Patient Condition at Discharge: Stable Plan - Discharge Summary Discharge Rx Participant: No New Discharge Prescriptions: New Benztropine Mesylate [Cogentin] 1 mg PO BID PRN 28 Days tab PRN Reason: Extrapyramidal Effects Melatonin 10 mg PO HS 28 Days tablet Acetaminophen Tab [Tylenol] 650 mg PO Q4HR PRN tab PRN Reason: Pain/Discomfort Sertraline [Zoloft] 100 mg PO DAILY 28 Days tab Continue Nicotine Polacrilex [Quit 4] 4 mg BUCCAL Q4H PRN 14 Days lozenge PRN Reason: CRAVINGS Changed Haldol Decanoate 200mg/Ml Oil 200 mg IM ONCE #1 Discontinued DULoxetine HCL [Cymbalta] 60 mg PO DAILY #30 cap Benztropine Mesylate [Cogentin] 1 mg PO BID #60 Ergocalciferol [Vitamin D2] 50,000 unit PO Q7D traZODone HCL [Desyrel] 100 mg PO HS Loratadine [Claritin] 10 mg PO DAILY Discharge Medication List Acetaminophen Tab [Tylenol] 650 mg PO Q4HR PRN tab 05/08/19 [Rx] Benztropine Mesylate [Cogentin] 1 mg PO BID PRN 28 Days tab 05/08/19 [Rx] Haldol Decanoate 200mg/Ml Oil 200 mg IM ONCE #1 05/08/19 [Rx] Melatonin 10 mg PO HS 28 Days tablet 05/08/19 [Rx] Nicotine Polacrilex [Quit 4] 4 mg BUCCAL Q4H PRN 14 Days lozenge 05/08/19 [Rx] Sertraline [Zoloft] 100 mg PO DAILY 28 Days tab 05/08/19 [Rx] Patient Instructions/Handouts: Schizophrenia (DC) Activity/Diet/Wound Care/Special Instructions: Activity and diet as tolerated. Avoid the use of street drugs and alcohol. Take all medications as prescribed. When you are in need of refills on your medications please contact your medical provider and/or outpatient psychiatrist to have this done. Please go to scheduled outpatient appointment for aftercare treatment. If symptoms return or become worse, call the crisis line at and/or go to the nearest emergency room for evaluation. Discharge Disposition: HOME SELF-CARE
== END 2019-05-08 12:00 | disposition home or self-care (01) | DRG 885 ==
LOC: EC 14:22 → 3MHU 17:24
PROVIDERS: ADMIT Psychiatry & Neurology Psychiatry; ATTEND Psychiatry & Neurology Psychiatry
DX: F25.1 Schizoaffective disorder, depressive type (principal); F17.210 Nicotine dependence, cigarettes, uncomplicated; Z79.899 Other long term (current) drug therapy; T43.4X6A Underdosing of butyrophenone and thiothixene neuroleptics, initial encounter; Z91.128 Patient's intentional underdosing of medication regimen for other reason; R45.1 Restlessness and agitation; E66.9 Obesity, unspecified; Z68.30 Body mass index [BMI] 30.0-30.9, adult; Z71.3 Dietary counseling and surveillance; Z60.2 Problems related to living alone
CPT/HCPCS: 80306; 82075; 99284

== ENCOUNTER 2021-06-08 13:07 | Emergency (ER) | payer MEDICARE, MEDICAID ==
--- NOTE | 2021-06-08 15:31 | P.CN ---
Psychiatric Consult - . Consult date: 06/08/21 Consult:: 06/08/21 15:30 IDENTIFYING DATA: This patient is a 30-year-old male with a significant history of schizoaffective disorder who presented to our emergency department from [facility] for acute psychosis. HISTORY OF PRESENT ILLNESS: The patient presented to the hospital on 06/08/2021, brought in under court order from [facility] for psychosis. At this time, the patient refused to participate in any psychiatric evaluation. Much of the history is provided through the packet which was sent to our psychiatric unit earlier this week requesting placement from [facility]. The patient has been denied from our psychiatric unit due to capacity and acuity however the patient was brought in to the hospital from [facility] by police. As per petition by the patient's mother, the patient has been reportedly hearing voices, pacing nonstop, and found a position in his hallway by a neighbor." As per her first clinical certificate completed by Dr. Kelli Jennings at [facility] on 06/02/2021, the patient "has a known history of schizophrenia and noncompliance with medications. Patient mother reports agitation, aggressive behavior, and the patient jumped. Patients mother reports that the patient has been hearing voices and thinks that there are people in the attic." The initial clinical certificate also checked off that the patient has a likelihood of injury to self and an inability to understand need for treatment. This provider attempted to evaluate the patient who is refusing to speak with this provider at this time. He is standing by the door of his room and refusing to sit and speak to this provider. He expresses no desire to engage in psychiatric treatment. He refuses to answer any questions. Review of the patient's medical chart reveals that the patient was last admitted to our psychiatric unit in May of 2019. During that admission he did require restraints for physical agitation. He was discharged on a regimen of invega sustenna, trazodone, cymbalta, and buspar. PAST PSYCHIATRIC HISTORY: Patient has a a history of Schizoaffective Disorder. As per chart review, the patient has previous trials of medications including Risperdal, Invega, BuSpar, Cymbalta, trazodone, and while present in the [facility] emergency department was administered medications for agitation including Geodon, Haldol, and ketamine. Patient has had 3 prior inpatient psychiatric hospitalizations in our unit starting in 2017 and 2 admissions in 2020. The patient reportedly follows up with [facility]. PAST MEDICAL HISTORY: Unable to determine past medical history at this time. ALLERGIES diphenhydramine: CHEMICAL DEPENDENCY HISTORY: Unable to assess at this time. FAMILY PSYCHIATRIC/SUBSTANCE USE HISTORY: Unable to assess at this time. SOCIAL HISTORY: Patient is single, unemployed. Unable to obtain any further social history at this time. MENTAL STATUS EXAM: General Appearance: Patient appears to be stated age is alert however is uncooperative. Patient appears to have fair hygiene and grooming wearing hospital gown with intense eye contact. Behavior: Patient is standing upright by the entrance of his room. Speech: Patient's speech is minimal, low in volume, and nonspontaneous. Mood/Affect: Patient reports their mood is "I don't need to be here." Affect is oppositional and angry. Suicidality/Homicidality: Unable to assess. Perceptions: Unable to assess. Though content/process: Unable to assess. Memory and concentration: Unable to assess. Judgment and insight: Grossly poor IMPRESSIONS: Schizoaffective disorder, by history PLAN: -At this time patient DOES meet criteria for inpatient psychiatric admission. However, at this time we are recommending transfer to a different psychiatric unit due to our psychiatric unit reaching capacity and the patient's level of acuity. Concern that his presence on the unit would be disruptive to our milieu and decrease level of care provided to our current patients. We have patients awaiting psychiatric placement from the medical floor and ICU which are currently more appropriate. The patient has been petitioned by his mother and first clinical certificate has been filled out. Second clinical certificate is to be filled out by the psychiatrist who would examine the patient when he is admitted to a psychiatric unit. I am recommending placement in another psychiatric facility due to the above mentioned concerns. -Would recommend the following medication changes/additions: We will place as needed orders for agitation. Thorazine 100 mg IM q6Hrs for agitation Ativan 2 mg IM q6Hrs for agitation -Continue 1:1 sitter for safety -Will continue to follow along
[2021-06-08] MEDS ORDERED: chlorproMAZINE 25 MG/ML 2 ML AMP IM PRN (15:58)
--- NOTE | 2021-06-08 15:58 | ED ---
Psych HPI - General Source: patient, police Mode of arrival: ambulatory <Marilyn Holguin - Last Filed: 06/08/21 23:25> <Curtis Parsons - Last Filed: 06/09/21 17:37> - General Chief Complaint: Psychiatric Symptoms Stated Complaint: Mental Health Time Seen by Provider: 06/08/21 13:28 - History of Present Illness Initial Comments: 30-year-old male presents emergency Department with a court order transfer record. Information that I am given by the nurse is that the patient was hospitalized at [facility] for the entire week last week. They were having difficulty placing the patient had a psychiatric institution. They received a court order transfer to have the patient taken from their facility to our facility. Transfer was not accepted on our behalf. The patient is not accompanied with a petitioner certification at original presentation. I do attempt to speak with the patient. He has paranoid thoughts and states that there are 3 people living in his mother's addict. They talk to him and discharge him at night from sleeping. He denies any suicidal ideations or homicidal ideations. Patient is extremely paranoid and provides minimal history. Unknown if he is taking his medications. Remainder of the HPI is limited due to his limited interaction (Marilyn Holguin) - Related Data Home Medications Medication Instructions Recorded Confirmed Unable To Assess [Unable to Assess] 06/08/21 06/08/21 Allergies Allergy/AdvReac Type Severity Reaction Status Date / Time diphenhydramine HCl Allergy Rash/Hives Verified 06/08/21 14:46 [From Benadryl] Review of Systems ROS Other: All systems not noted in ROS Statement are negative. <Marilyn Holguin - Last Filed: 06/08/21 23:25> ROS Other: All systems not noted in ROS Statement are negative. <Curtis Parsons - Last Filed: 06/09/21 17:37> ROS Statement: Those systems with pertinent positive or pertinent negative responses have been documented in the HPI. Past Medical History Past Medical History: No Reported History History of Any Multi-Drug Resistant Organisms: None Reported Past Surgical History: Appendectomy Additional Past Surgical History / Comment(s): Pt reports he has no money and is depressed. Past Psychological History: Depression, Schizoaffective Disorder Smoking Status: Current every day smoker Past Alcohol Use History: None Reported Past Drug Use History: None Reported - Past Family History Father Additional Family Medical History / Comment(s): Patient will state that his parents of mother and father are both alive but he does not know their medical history. When asked about his brothers and sisters he just states I don't know. <Marilyn Holguin - Last Filed: 06/08/21 23:25> General Exam Limitations: no limitations <EzioMarilyn Vinayak - Last Filed: 06/08/21 23:25> Course Vital Signs 06/08/21 06/09/21 13:11 11:05 Temperature 98.1 F 97.9 F Pulse Rate 93 69 Respiratory 20 16 Rate Blood Pressure 158/86 138/83 O2 Sat by Pulse 100 99 Oximetry Medical Decision Making <EzioMarilyn Licea - Last Filed: 06/08/21 23:25> <Curtis Parsons - Last Filed: 06/09/21 17:37> - Medical Decision Making Upon arrival patient is placed into room 13. Thorough history and physical exam is performed. I attempt to evaluate the patient however he is limited in his responses. I reviewed information that is sent over from [facility]. Due to the patient's paranoid behavior I do feel that the patient needs hospitalization for psychiatric treatment. He makes further statements to the EPS nurse that he is requesting presence of the mafia. Recommendations for Thorazine and Ativan orders are provided by the psychiatrist on-call. We are currently awaiting psychiatric placement of the patient (EzioMarilyn Licea) Patient being transferred for further his psychiatric evaluation and treatment. (Curtis Parsons) - Lab Data Lab Results 06/08/21 Range/Units 11:00 Coronavirus (PCR) Not Detected (Not Detectd) Disposition <EzioMarilyn Licea - Last Filed: 06/08/21 23:25> Is patient prescribed a controlled substance at d/c from ED?: No Time of Disposition: 17:37 - Out of Hospital Transfer - Req. Specs Out of Hospital Transfer - Requested Specifics: Psychiatric Non-ICU ([facility]) <Curtis Parsons - Last Filed: 06/09/21 17:37> Clinical Impression: Psychosis Disposition: OTHER INSTITUTION NOT DEFINED Condition: Stable Referrals: None,Stated [Primary Care Provider] - 1-2 days
[2021-06-08] MEDS ORDERED: LORazepam 2 MG/ML INJ IM PRN (15:59)
[2021-06-09 19:10] VITALS: BP 135/88; PULSE 98; RESP 12; TEMP 98
== END 2021-06-10 01:08 | disposition other institution (70) ==
LOC: EC 13:07
DX: F29 Unspecified psychosis not due to a substance or known physiological condition (principal); F17.200 Nicotine dependence, unspecified, uncomplicated; Z20.822 Contact with and (suspected) exposure to COVID-19; Z88.8 Allergy status to other drugs, medicaments and biological substances
CPT/HCPCS: 99284; 96372; 82075; 87635; J2060

== ENCOUNTER 2021-07-28 19:36 | Inpatient (IN) | payer MEDICARE, MEDICAID ==
--- NOTE | 2021-07-28 20:23 | ED ---
General Adult HPI - General Source: patient, police, RN notes reviewed, old records reviewed Mode of arrival: ambulatory <Anjel Murguia - Last Filed: 07/28/21 21:05> <Anjel Hernandez - Last Filed: 07/30/21 02:18> - General Chief complaint: Psychiatric Symptoms Stated complaint: Mental Illness,Lt Finger Injury Time Seen by Provider: 07/28/21 19:40 - History of Present Illness Initial comments: This is a 30-year-old male who presents emergency Department with a past psychiatric history. Patient was brought in on a court ordered because a little while back he was aggressive with staff at the [facility] and He Is Not Being Compliant with His Medications Were His Care Plan. Patient has petitioned to be evaluated. Patient denies being suicidal homicidal. Patient denies any drug use or alcohol use. Patient denies any physical complaints today. Patient denies fever chills cough patient denies any chest pain difficulty breathing shortness of breath. Patient denies abdominal pain patient denies nausea vomiting diarrhea. (Anjel Murguia) - Related Data Home Medications Medication Instructions Recorded Confirmed No Known Home Medications 07/28/21 07/28/21 Allergies Allergy/AdvReac Type Severity Reaction Status Date / Time diphenhydramine HCl Allergy Rash/Hives Verified 07/28/21 21:39 [From Benadryl] Review of Systems ROS Other: All systems not noted in ROS Statement are negative. <Anjel Murguia - Last Filed: 07/28/21 21:05> ROS Other: All systems not noted in ROS Statement are negative. <Anjel Hernandez - Last Filed: 07/30/21 02:18> ROS Statement: Those systems with pertinent positive or pertinent negative responses have been documented in the HPI. Past Medical History Past Medical History: Unable to Obtain History of Any Multi-Drug Resistant Organisms: None Reported Past Surgical History: Unable to Obtain, Appendectomy Additional Past Surgical History / Comment(s): Pt reports he has no money and is depressed. Past Psychological History: Depression, Schizoaffective Disorder Smoking Status: Unknown if ever smoked Past Alcohol Use History: None Reported Past Drug Use History: None Reported - Past Family History Father Additional Family Medical History / Comment(s): Patient will state that his parents of mother and father are both alive but he does not know their medical history. When asked about his brothers and sisters he just states I don't know. <Anjel Murguia - Last Filed: 07/28/21 21:05> General Exam <Anjel Murguia - Last Filed: 07/28/21 21:05> - General Exam Comments Initial Comments: GENERAL: Patient is well-developed and well-nourished. Patient is nontoxic and well- hydrated and is in no acute distress. ENT: Neck is soft and supple. No significant lymphadenopathy is noted. Oropharynx is clear. Moist mucous membranes. Neck has full range of motion without eliciting any pain. EYES: The sclera were anicteric and conjunctiva were pink and moist. Extraocular movements were intact and pupils were equal round and reactive to light. Eyelids were unremarkable. PULMONARY: Unlabored respirations. Good breath sounds bilaterally. No audible rales rhonchi or wheezing was noted. CARDIOVASCULAR: Patient is tachycardic at about 110 bpm. ABDOMEN: Soft and nontender with normal bowel sounds. SKIN: Skin is clear with no lesions or rashes and otherwise unremarkable. NEUROLOGIC: Patient is alert and oriented x3. Cranial nerves II through XII are grossly intact. Motor and sensory are also intact. Normal speech, volume and content. Symmetrical smile. MUSCULOSKELETAL: Superficial abrasions on one the right and one on the left. LYMPHATICS: No significant lymphadenopathy is noted PSYCHIATRIC: Patient is reluctant to answer questions but eventually will he does seem angry but not aggressive at this time (Anjel Murguia) Course Vital Signs 07/28/21 07/29/21 07/29/21 19:40 02:28 19:00 Temperature 100 F H 97.9 F 98.9 F Pulse Rate 130 H 91 93 Respiratory 22 14 18 Rate Blood Pressure 147/99 155/86 131/83 O2 Sat by Pulse 98 100 95 Oximetry Medical Decision Making <Anjel Murguia - Last Filed: 07/28/21 21:05> - Lab Data Result diagrams: 07/29/21 02:31 07/29/21 02:31 <Anjel Hernandez - Last Filed: 07/30/21 02:18> - Medical Decision Making Dr. Merrill will be taking over the care of this patient at 9:00 p.m. (Anjel Murguia) - Lab Data Lab Results 07/29/21 07/29/21 07/29/21 Range/Units 00:28 02:31 02:31 WBC 10.3 (3.8-10.6) k/uL RBC 3.84 L (4.30-5.90) m/uL Hgb 12.6 L (13.0-17.5) gm/dL Hct 37.1 L (39.0-53.0) % MCV 96.5 (80.0-100.0) fL MCH 32.8 (25.0-35.0) pg MCHC 34.0 (31.0-37.0) g/dL RDW 12.4 (11.5-15.5) % Plt Count 346 (150-450) k/uL MPV 6.5 Sodium 137 (137-145) mmol/L Potassium 4.1 (3.5-5.1) mmol/L Chloride 106 (98-107) mmol/L Carbon Dioxide 26 (22-30) mmol/L Anion Gap 5 mmol/L BUN 16 (9-20) mg/dL Creatinine 0.80 (0.66-1.25) mg/dL Est GFR (CKD-EPI)AfAm >90 (>60 ml/min/1.73 sqM) Est GFR (CKD-EPI)NonAf >90 (>60 ml/min/1.73 sqM) Glucose 102 H (74-99) mg/dL Calcium 9.1 (8.4-10.2) mg/dL Total Bilirubin 0.6 (0.2-1.3) mg/dL AST 23 (17-59) U/L ALT 16 (4-49) U/L Alkaline Phosphatase 74 (38-126) U/L Total Protein 6.9 (6.3-8.2) g/dL Albumin 4.1 (3.5-5.0) g/dL Urine Opiates Screen Not Detected (NotDetected) Ur Oxycodone Screen Not Detected (NotDetected) Urine Methadone Screen Not Detected (NotDetected) Ur Propoxyphene Screen Not Detected (NotDetected) Ur Barbiturates Screen Not Detected (NotDetected) U Tricyclic Antidepress Not Detected (NotDetected) Ur Phencyclidine Scrn Not Detected (NotDetected) Ur Amphetamines Screen Not Detected (NotDetected) U Methamphetamines Scrn Not Detected (NotDetected) U Benzodiazepines Scrn Not Detected (NotDetected) Urine Cocaine Screen Not Detected (NotDetected) U Marijuana (THC) Screen Not Detected (NotDetected) Coronavirus (PCR) (Not Detectd) 07/29/21 Range/Units 02:31 WBC (3.8-10.6) k/uL RBC (4.30-5.90) m/uL Hgb (13.0-17.5) gm/dL Hct (39.0-53.0) % MCV (80.0-100.0) fL MCH (25.0-35.0) pg MCHC (31.0-37.0) g/dL RDW (11.5-15.5) % Plt Count (150-450) k/uL MPV Sodium (137-145) mmol/L Potassium (3.5-5.1) mmol/L Chloride (98-107) mmol/L Carbon Dioxide (22-30) mmol/L Anion Gap mmol/L BUN (9-20) mg/dL Creatinine (0.66-1.25) mg/dL Est GFR (CKD-EPI)AfAm (>60 ml/min/1.73 sqM) Est GFR (CKD-EPI)NonAf (>60 ml/min/1.73 sqM) Glucose (74-99) mg/dL Calcium (8.4-10.2) mg/dL Total Bilirubin (0.2-1.3) mg/dL AST (17-59) U/L ALT (4-49) U/L Alkaline Phosphatase (38-126) U/L Total Protein (6.3-8.2) g/dL Albumin (3.5-5.0) g/dL Urine Opiates Screen (NotDetected) Ur Oxycodone Screen (NotDetected) Urine Methadone Screen (NotDetected) Ur Propoxyphene Screen (NotDetected) Ur Barbiturates Screen (NotDetected) U Tricyclic Antidepress (NotDetected) Ur Phencyclidine Scrn (NotDetected) Ur Amphetamines Screen (NotDetected) U Methamphetamines Scrn (NotDetected) U Benzodiazepines Scrn (NotDetected) Urine Cocaine Screen (NotDetected) U Marijuana (THC) Screen (NotDetected) Coronavirus (PCR) Not Detected (Not Detectd) Disposition <Anjel Murguia - Last Filed: 07/28/21 21:05> Is patient prescribed a controlled substance at d/c from ED?: No <Anjel Hernandez - Last Filed: 07/30/21 02:18> Clinical Impression: Schizophrenia, acute, Schizophrenia, Schizoaffective disorder Disposition: TRANSFER TO PSYCH HOSP/UNIT Condition: Fair Referrals: None,Stated [Primary Care Provider] - 1-2 days
[2021-07-29] MEDS ORDERED: LORazepam 1 MG TAB PO STA ×3 (00:40→21:05)
[2021-07-29 01:28] LABS: Amphetamine Screen,Urine Not Detected (NotDetected); Barbiturate Screen,Urine Not Detected (NotDetected); Benzodiazepines Screen,Urine Not Detected (NotDetected); Cocaine Screen,Urine Not Detected (NotDetected); Methadone Screen, Urine Not Detected (NotDetected); Opiate Screen,Urine Not Detected (NotDetected); Oxycodone Screen, Urine Not Detected (NotDetected); Phencyclidine Screen,Urine Not Detected (NotDetected); Tricyclic Antidepressant,Urine Not Detected (NotDetected); Urn Cannabinoid Scrn Not Detected (NotDetected)
[2021-07-29 02:53] LABS: HCT 37.1 % (39.0-53.0); HGB 12.6 gm/dL (13.0-17.5); MCH 32.8 pg (25.0-35.0); MCV 96.5 fL (80.0-100.0); Mean Platelet Volume 6.5; Platelet Count 346 k/uL (150-450); RBC 3.84 m/uL (4.30-5.90); RDW 12.4 % (11.5-15.5); WBC 10.3 k/uL (3.8-10.6)
[2021-07-29 03:03] LABS: ALT 16 U/L (4-49); AST 23 U/L (17-59); African American GFR (CKD) >90 (>60 ml/min/1.73 sqM); Albumin 4.1 g/dL (3.5-5.0); Alkaline Phosphatase 74 U/L (38-126); Anion Gap 5 mmol/L; Blood Urea Nitrogen 16 mg/dL (9-20); Calcium 9.1 mg/dL (8.4-10.2); Carbon Dioxide 26 mmol/L (22-30); Chloride 106 mmol/L (98-107); Glucose 102 mg/dL (74-99); Non-African American GFR(CKD) >90 (>60 ml/min/1.73 sqM); Potassium 4.1 mmol/L (3.5-5.1); Sodium 137 mmol/L (137-145); Total Bilirubin 0.6 mg/dL (0.2-1.3); Total Protein 6.9 g/dL (6.3-8.2)
[2021-07-30] MEDS ORDERED: ACETAMINOPHEN TAB 325 MG TAB PO PRN (02:36)
[2021-07-30] MEDS ORDERED: HALOPERIDOL LACTATE 5 MG/ML 1 ML VIAL IM PRN (02:36)
[2021-07-30] MEDS ORDERED: MAG HYDROX/AL HYDROX/SIMETH 30 ML CUP PO PRN (02:36)
[2021-07-30] MEDS ORDERED: LORazepam 2 MG/ML INJ IM PRN (02:39)
[2021-07-30] MEDS ORDERED: haloperidoL 5 MG TAB PO PRN (02:40)
[2021-07-30] MEDS: LORazepam 1 MG TAB PO PRN ×2 (03:19→14:55)
[2021-07-30 03:32] VITALS: RESP 16
[2021-07-30] MEDS: NICOTINE 14MG/24HR PATCH TRANSDERM SCH (09:18)
--- NOTE | 2021-07-30 11:43 | P.HP ---
Psychiatric H&P - . H&P Date: 07/30/21 History & Physical: Allergies Allergy/AdvReac Type Severity Reaction Status Date / Time diphenhydramine HCl Allergy Rash/Hives Verified 07/30/21 03:34 [From Benadryl] Vital Signs Temp 97.5 F L 07/30/21 03:30 Pulse 95 07/30/21 03:30 Resp 16 07/30/21 03:30 BP 124/75 07/30/21 03:30 Pulse Ox 97 07/30/21 03:30 Intake & Output 07/29/21 07/30/21 07/30/21 18:59 06:59 18:59 Weight 79.7 kg Laboratory Last Values WBC 10.3 k/uL (3.8-10.6) 07/29/21 02:31 RBC 3.84 m/uL (4.30-5.90) L 07/29/21 02:31 Hgb 12.6 gm/dL (13.0-17.5) L 07/29/21 02:31 Hct 37.1 % (39.0-53.0) L 07/29/21 02:31 MCV 96.5 fL (80.0-100.0) 07/29/21 02:31 MCH 32.8 pg (25.0-35.0) 07/29/21 02:31 MCHC 34.0 g/dL (31.0-37.0) 07/29/21 02:31 RDW 12.4 % (11.5-15.5) 07/29/21 02:31 Plt Count 346 k/uL (150-450) 07/29/21 02:31 MPV 6.5 07/29/21 02:31 Sodium 137 mmol/L (137-145) 07/29/21 02:31 Potassium 4.1 mmol/L (3.5-5.1) 07/29/21 02:31 Chloride 106 mmol/L (98-107) 07/29/21 02:31 Carbon Dioxide 26 mmol/L (22-30) 07/29/21 02:31 Anion Gap 5 mmol/L 07/29/21 02:31 BUN 16 mg/dL (9-20) 07/29/21 02:31 Creatinine 0.80 mg/dL (0.66-1.25) 07/29/21 02:31 Est GFR (CKD-EPI)AfAm >90 (>60 ml/min/1.73 sqM) 07/29/21 02:31 Est GFR (CKD-EPI)NonAf >90 (>60 ml/min/1.73 sqM) 07/29/21 02:31 Glucose 102 mg/dL (74-99) H 07/29/21 02:31 Calcium 9.1 mg/dL (8.4-10.2) 07/29/21 02:31 Total Bilirubin 0.6 mg/dL (0.2-1.3) 07/29/21 02:31 AST 23 U/L (17-59) 07/29/21 02:31 ALT 16 U/L (4-49) 07/29/21 02:31 Alkaline Phosphatase 74 U/L (38-126) 07/29/21 02:31 Total Protein 6.9 g/dL (6.3-8.2) 07/29/21 02:31 Albumin 4.1 g/dL (3.5-5.0) 07/29/21 02:31 Urine Opiates Screen Not Detected (NotDetected) 07/29/21 00:28 Ur Oxycodone Screen Not Detected (NotDetected) 07/29/21 00:28 Urine Methadone Screen Not Detected (NotDetected) 07/29/21 00:28 Ur Propoxyphene Screen Not Detected (NotDetected) 07/29/21 00:28 Ur Barbiturates Screen Not Detected (NotDetected) 07/29/21 00:28 U Tricyclic Antidepress Not Detected (NotDetected) 07/29/21 00:28 Ur Phencyclidine Scrn Not Detected (NotDetected) 07/29/21 00:28 Ur Amphetamines Screen Not Detected (NotDetected) 07/29/21 00:28 U Methamphetamines Scrn Not Detected (NotDetected) 07/29/21 00:28 U Benzodiazepines Scrn Not Detected (NotDetected) 07/29/21 00:28 Urine Cocaine Screen Not Detected (NotDetected) 07/29/21 00:28 U Marijuana (THC) Screen Not Detected (NotDetected) 07/29/21 00:28 Coronavirus (PCR) Not Detected (Not Detectd) 07/29/21 02:31 07/30/21 11:36 Psychiatric evaluation This evaluation on Izaiah Urbina who is a 30-year-old male and was hospitalized with a court order for noncompliance and aggressive acting out Patient is of a vague and a poor historian Patient initially reported that he was compliant with all the treatment and recommendations and is not sure as to why the police picked him up When asked as to what kind of treatment that he was receiving patient stated that he was not involved in any treatment Patient when asked about his previous diagnoses or problems, reports that that he does not want to talk about it Patient states that he is currently 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 Patient admits that he has used marijuana and cocaine but did not report suicidal use Patient's current drug screen up as to be negative for any drugs at this time Patient remains very guarded superficial and did not give any details about his family history or any previous psychiatric treatment Past history personal social history: is limited due to level reasons Further information will be collected as patient becomes more cooperative Mental status examination reveals a young male who currently appears in no acute physical distress Patient is alert and oriented to place and person Patient's speech was impoverished with the limited verbal responses although appropriate to the talk and thought content Affect at this time remains flat Patient comes across as very guarded and superficial and paranoid? Patient's formal and operational judgment and insight remains impaired Problem-solving abilities poor Patient's judgment is impaired Diagnostic impression: Psychotic disorder unspecified Rule out schizophrenia chronic undifferentiated type Cannabis use disorder unspecified Cocaine use disorder unspecified Plan: The patient will be hospital is on the unit for further evaluation and treatment Therapy will be focused on providing supportive care improving coping abilities with a multimodal treatment Patient will be encouraged to participate in on the perkins activities and milieu therapy Patient at this time is declined to take any recommended prescribed medications but the when necessary medications will be used for any inappropriate acting out or aggression Maintain supportive care and safety precautions Munir Nelson M.D. 07/30/2021
--- NOTE | 2021-07-30 23:55 | P.PN ---
Progress Note - Text Progress Note Date: 07/30/21 Attempted to see patient at 2100 on 07/30. The patient refused to be seen or evaluated.
[2021-07-31 09:41] LABS: Chol/HDL Ratio 4.09 Ratio; LDL Cholesterol,Calculated 89.3 mg/dL (0.0-131.0)
--- NOTE | 2021-07-31 09:59 | P.PN ---
Subjective Progress Note Date: 07/31/21 Principal diagnosis: Adjustment disorder with mixed emotional features Rule out schizophrenia chronic undifferentiated type Cannabis use disorder unspecified Cocaine use disorder unspecified Subjective data: I was just having some fun drinking and partying and was walking down the streets when the police picked me up I was minding my own business No I have no intention of harming myself or others I'm not hearing any voices Objective data: Patient remains isolative with limited interaction with others staff or peers Patient remains guarded Responses are very superficial and vague Patient denied having any problems or issues Patient however did not exhibit any aggressive acting out or any threatening behavior Formal and operational judgment and insight remains impaired Plan: Continue building rapport Increase patient to verbalize and perspiration on the perkins activities including the milieu treatment Patient has not shown any aggression or agitation but when necessary medications are available if needed Continue current can support Patient with his current demeanor and paranoia and guardedness continues to be in need of further hospitalization and supervision Munir Omar Marte 07/31/2021 Objective - Vital Signs Vital signs: Vital Signs Temp 97.5 F L 07/30/21 03:30 Pulse 95 07/30/21 03:30 Resp 16 07/30/21 03:30 BP 124/75 07/30/21 03:30 Pulse Ox 97 07/30/21 03:30 - Labs CBC & Chem 7: 07/29/21 02:31 07/29/21 02:31 Labs: Abnormal Lab Results - Last 24 Hours (Table) 07/29/21 Range/Units 02:31 Triglycerides 192.00 H (0.00-149.00) mg/dL
[2021-07-31] MEDS: NICOTINE 14MG/24HR PATCH TRANSDERM SCH (11:35)
[2021-07-31] MEDS: LORazepam 1 MG TAB PO PRN ×2 (13:40→20:34)
--- NOTE | 2021-08-01 00:39 | P.PN ---
Progress Note - Text Progress Note Date: 08/01/21 The patient refused to be seen or evaluated.
[2021-08-01] MEDS: NICOTINE 14MG/24HR PATCH TRANSDERM SCH (08:11)
--- NOTE | 2021-08-01 10:43 | P.PN ---
Progress Note - Text Progress Note Date: 08/01/21 Interval History: Patient was seen wandering the hallways and was directable and agreeable to sp eak with creative services writer in the office. Patient appeared to have a moore and upset look on his face. He was very concrete and appeared to be fairly paranoid. She appeared to demonstrate fairly poor insight and judgment. He states that he has been taking his medications however states that "I'm in the hospital because they don't believe me and think that I'm violating the court order". He states that he does not believe he needs medications. He appears to have poor impulse control. At this time patient denies any suicidal or homical ideations, intent or plan. Patient denies any auditory, visual hallucinations. He was demonstrating paranoia and suspiciousness toward creative services writer. He was not agreeable to take medications. He got up [facility] during the interview and stated "I know how this is in end" and left the room. Mental Status Exam: General Appearance: Patient appears to be stated age is alert, confrontational and paranoid. Behavior: Patient is calmly seated without any agitated behavior. Paranoid. Speech: Patient's speech is fluent and nonpressured. [place] Mood/Affect: Mood is "fine", affect is congruent and constricted. Suicidality/Homicidality: Patient denies having any suicidal or homicidal ideation intent or plan. Perceptions: Patient denies any visual hallucinations and denies any auditory hallucinations Though content/process: [place], evasive, paranoid. Confrontational. Memory and concentration: AOX3, grossly intact for the purposes of this session Judgment and insight: Chronically poor Assessment Schizophrenia Cannabis use disorder Nicotine dependence Plan: -Patient continues to meet criteria for inpatient psychiatric admission for symptom stabilization and safety. Patient has not signed adult voluntary form or medication consent and was placed in patient's chart. -Medications: Paliperidone by mouth 3 mg daily at bedtime for psychosis/mood stabilization. Will attempt to find out when patient's last dose of Invega Sustenna was given. -When necessary Ativan and Haldol for agitation/aggression. -NRT - nicotine patch -SW on board for discharge planning. Encouraged the patient to participate in milieu. Court hearing for demand is on 08/03 at 10 AM.
[2021-08-01] MEDS: LORazepam 1 MG TAB PO PRN ×2 (18:19→21:54)
[2021-08-01] MEDS: PALIPERIDONE 3 MG TAB.ER.24 PO SCH (21:46)
--- NOTE | 2021-08-02 09:47 | P.PN ---
Progress Note - Text Progress Note Date: 08/02/21 Interval History: Patient was seen pacing the hallways and was directable and agreeable to speak with public relations writer in the hallways. Patient continues to appear to be paranoid and argumentative with public relations writer. He did not want to talk about his symptoms today and only wanted to talk about his medications. She asked about his medication options which were given to him. He was fairly resistant to taking most medications however did agree to take Abilify. He states that "give me the Abilify shot" and believes that he did not have to take by mouth meds. Architecture Drafter explained that patient cannot just receive the Abilify injection and needs to be stabilized on oral medications first and patient got upset with public relations writer and claims that "do whatever you want him not taking your damn pills". Then patient proceeded to walk away from public relations writer. Patient appeared to have a moore and upset look on his face. He was very concrete and appeared to be fairly paranoid. She appeared to demonstrate fairly poor insight and judgment. He appears to have poor impulse control. At this time patient denies any suicidal or homical ideations, intent or plan. Patient denies any auditory, visual hallucinations. Mental Status Exam: General Appearance: Patient appears to be stated age is alert, confrontational and paranoid. Behavior: Patient is calmly seated without any agitated behavior. Paranoid. Speech: Patient's speech is fluent and nonpressured. [place] Mood/Affect: Mood is "fine", affect is congruent and constricted. Suicidality/Homicidality: Patient denies having any suicidal or homicidal ideation intent or plan. Perceptions: Patient denies any visual hallucinations and denies any auditory hallucinations Though content/process: [place], evasive, paranoid. Confrontational. Memory and concentration: AOX3, grossly intact for the purposes of this session Judgment and insight: Chronically poor Assessment Schizophrenia Cannabis use disorder Nicotine dependence Plan: -Patient continues to meet criteria for inpatient psychiatric admission for symptom stabilization and safety. Patient has not signed adult voluntary form or medication consent and was placed in patient's chart. -Medications: Paliperidone by mouth 3 mg daily at bedtime for psychosis/mood stabilization. Patient will need to restarted on CRUZ due to high likelihood of noncompliance. -When necessary Ativan and Haldol for agitation/aggression. -NRT - nicotine patch -SW on board for discharge planning. Encouraged the patient to participate in milieu. Court hearing for demand is on 08/03 at 10 AM.
[2021-08-02] MEDS: NICOTINE 14MG/24HR PATCH TRANSDERM SCH (11:21)
[2021-08-02] MEDS: LORazepam 1 MG TAB PO PRN (20:43)
[2021-08-02] MEDS: PALIPERIDONE 3 MG TAB.ER.24 PO SCH (20:44)
[2021-08-03] MEDS: NICOTINE 14MG/24HR PATCH TRANSDERM SCH (08:57)
[2021-08-03] MEDS: LORazepam 1 MG TAB PO PRN ×2 (11:17→18:34)
[2021-08-03] MEDS ORDERED: flUPHENAZine 2.5 MG/ML (MDV) 10 ML VIAL IM PRN (11:29)
--- NOTE | 2021-08-03 11:34 | P.PN ---
Progress Note - Text Progress Note Date: 08/03/21 Interval History: Patient was seen pacing the hallways and was directable and agreeable to speak with promotion writer in the hallways. Patient continues to appear to be paranoid and argumentative with promotion writer. He states that he took the paliperidone po last night and did not have any complaints about it. He states that the paliperidone gives him sexual side effects. He was nonspecific about what they are. He claims that he does not want to take any by mouth medications. She was focused on discharge today and continues to have very poor insight and judgment. He states that he sad and on court today which resulted in a court order for him to be taking medications. He continues to appear to be somewhat irritable with promotion writer and concrete, evasive. He states that he slept fairly last night. After speaking about the different medication options he was agreeable to start Prolixin today. He was very concrete and appeared to be fairly paranoid. She appeared to demonstrate fairly poor insight and judgment. He appears to have poor impulse control. At this time patient denies any suicidal or homical ideations, intent or plan. Patient denies any auditory, visual hallucinations. Mental Status Exam: General Appearance: Patient appears to be stated age is alert, confrontational and paranoid. Behavior: Patient is calmly seated without any agitated behavior. Paranoid. Argumentative. Speech: Patient's speech is fluent and nonpressured. [place] Mood/Affect: Mood is "ok", affect is congruent and constricted. Suicidality/Homicidality: Patient denies having any suicidal or homicidal ideation intent or plan. Perceptions: Patient denies any visual hallucinations and denies any auditory hallucinations Though content/process: [place], evasive, paranoid. Confrontational. Memory and concentration: AOX3, grossly intact for the purposes of this session Judgment and insight: Chronically poor Assessment Schizophrenia Cannabis use disorder Nicotine dependence Plan: -Patient continues to meet criteria for inpatient psychiatric admission for symptom stabilization and safety. Patient has not signed adult voluntary form or medication consent and was placed in patient's chart. -Medications: Discontinued paliperidone as per patient's request. He would like to start Prolixin today, ordered Prolixin by mouth 2.5 mg twice a day for psychosis/mood stabilization. Patient is court ordered and has Prolixin IM as backup if he refuses. Patient will need to restarted on CRUZ due to high likelihood of noncompliance prior to d/c. -When necessary Ativan and Haldol for agitation/aggression. -NRT - nicotine patch -SW on board for discharge planning. Encouraged the patient to participate in milieu. Court hearing was on 08/03 [address] a [address] order. likely discharge once patient is transitioned onto CRUZ.
[2021-08-03] MEDS: MAGNESIUM HYDROXIDE 2,400 MG/10 ML CUP PO PRN (22:29)
[2021-08-04] MEDS: NICOTINE 14MG/24HR PATCH TRANSDERM SCH (08:48)
[2021-08-04] MEDS ORDERED: flUPHENAZine 2.5 MG/ML (MDV) 10 ML VIAL IM PRN (13:03)
--- NOTE | 2021-08-04 13:07 | P.PN ---
Progress Note - Text Progress Note Date: 08/04/21 Interval History: Patient was seen pacing the hallways and was directable and agreeable to speak with tag writer in the hallways. Patient claims that today he feels upset. He was very concrete and evasive about why he is feeling upset. He continues to be preoccupied with discharge and receiving his "long-acting shot". He asked questions about his medications. He continues to be concrete and avoidant. He was caught wandering into a female patient's room last night. Continues to endorse some paranoia and argumentative. He walked away from the interview early. He states that he slept fairly last night. he appeared to demonstrate fairly poor insight and judgment. He appears to have poor impulse control. At this time patient denies any suicidal or homical ideations, intent or plan. Patient denies any auditory, visual hallucinations. Mental Status Exam: General Appearance: Patient appears to be stated age is alert, confrontational and paranoid. Behavior: Patient is calmly seated without any agitated behavior. Paranoid. Argumentative, improving mildly Speech: Patient's speech is fluent and nonpressured. [place] Mood/Affect: Mood is "fine", affect is congruent and constricted. Suicidality/Homicidality: Patient denies having any suicidal or homicidal ideation intent or plan. Perceptions: Patient denies any visual hallucinations and denies any auditory hallucinations Though content/process: [place], evasive, paranoid. Confrontational, improving mildly Memory and concentration: AOX3, grossly intact for the purposes of this session Judgment and insight: Chronically poor Assessment Schizophrenia Cannabis use disorder Nicotine dependence Plan: -Patient continues to meet criteria for inpatient psychiatric admission for symptom stabilization and safety. Patient has not signed adult voluntary form or medication consent and was placed in patient's chart. -Medications: Increase Prolixin by mouth 5 mg twice a day for psychosis/mood stabilization. Patient is court ordered and has Prolixin IM as backup if he refuses. Patient will need to restarted on CRUZ due to high likelihood of noncompliance prior to d/c. -When necessary Ativan and Haldol for agitation/aggression. -NRT - nicotine patch - on board for discharge planning. Encouraged the patient to participate in milieu. Court hearing was on 08/03 and [address] in a court order. likely discharge once patient is transitioned onto CRUZ. likely discharge early next week to [facility]
[2021-08-04] MEDS: LORazepam 1 MG TAB PO PRN (17:38)
[2021-08-05] MEDS: NICOTINE 14MG/24HR PATCH TRANSDERM SCH (08:16)
[2021-08-05] MEDS ORDERED: fluPHENAZine DECANOATE 25 MG/ML 5ML MDV IM ONE (10:13)
--- NOTE | 2021-08-05 10:19 | P.PN ---
Progress Note - Text Progress Note Date: 08/05/21 Interval History: Patient was seen sitting in his room today and was directable and agreeable to speak with advertising copy writer in the hallways. Patient claims that he feels "fine today". He denied any overnight complaints. He did state that the medication has been making her feel a little bit dizzy however this has been improving. He was very concrete which appears to be chronic. He asked questions about his medications and when he can receive his CRUZ and go home. He states that he does not know whe re he will be going upon discharge. Less argumentativee today and less impuslive. He states that he slept fairly last night. he appeared to demonstrate fairly poor insight and judgment, improving. at this time patient denies any suicidal or homical ideations, intent or plan. Patient denies any auditory, visual hallucinations. Mental Status Exam: General Appearance: Patient appears to be stated age is alert, less paranoid. Behavior: Patient is calmly seated without any agitated behavior. more cooperative today Speech: Patient's speech is fluent and nonpressured. [place] Mood/Affect: Mood is "fine", affect is congruent and constricted. Suicidality/Homicidality: Patient denies having any suicidal or homicidal ideation intent or plan. Perceptions: Patient denies any visual hallucinations and denies any auditory hallucinations Though content/process: [place], evasive, improving midlly. less Confrontational today Memory and concentration: AOX3, grossly intact for the purposes of this session Judgment and insight: Chronically poor, improving mildly Assessment Schizophrenia Cannabis use disorder Nicotine dependence Plan: -Patient continues to meet criteria for inpatient psychiatric admission for symptom stabilization and safety. Patient has not signed adult voluntary form or medication consent and was placed in patient's chart. -Medications: decrease Prolixin by mouth 4 mg twice a day for psychosis/mood stabilization then decrease down to 2.5 mg bid on sunday. Ordered Prolixin D today 37.5 mg IM, next dose due in two weeks. Patient is court ordered and has Prolixin IM as backup if he refuses. -When necessary Ativan and Haldol for agitation/aggression. -NRT - nicotine patch - on board for discharge planning. Encouraged the patient to participate in milieu. Court hearing was on 08/[address] and [address] in a court order. likely discharge sunday to [facility]
[2021-08-05] MEDS: LORazepam 1 MG TAB PO PRN ×2 (10:24→17:33)
[2021-08-05] MEDS: MAGNESIUM HYDROXIDE 2,400 MG/10 ML CUP PO PRN (21:40)
[2021-08-06] MEDS: LORazepam 1 MG TAB PO PRN ×2 (08:21→15:44)
[2021-08-06] MEDS: NICOTINE 14MG/24HR PATCH TRANSDERM SCH (08:22)
--- NOTE | 2021-08-06 13:31 | P.PN ---
Progress Note - Text Interval history: Patient was seen in his room and was directable and agreeable to speak with rfp writer. States that he is doing "good" when asked about irritability and agitation, he lost, and then replied "no". At this time patient denies any suicidal or homicidal ideations intent or plan. Denies any Auditory or visual hallucinations. Patient denies any side effects from the medications and has been compliant with meds. Later in the day he approached rfp writer in the hallway and asked if he could be discharged Mental status exam: General Appearance: [Patient appears to be stated age is alert.] Behavior: [No agitated behavior. Patient is calm and directable] Speech: Patient's speech is fluent and nonpressured. Mood/Affect: Mood is "good", affect is constricted. Suicidality/Homicidality: Patient denies having any suicidal or homicidal ideation intent or plan. Perceptions: Patient denies any auditory or visual hallucinations. Though content/process: [There is no evidence of any delusional thought content and thought process is linear and goal-directed.] Memory and concentration: AOX3, grossly intact for the purposes of this session Judgment and insight: Poor Assessment/Plan: Continue with current diagnosis. Patient continues to meet criteria for inpatient psychiatric admission for symptom stabilization and safety.[Patient will be maintained on current psychotropic medication regimen.] Monitor for medication compliance and for any psychotropic medication side effects. Will continue to monitor ongoing response to treatment. Encouraged participation in milieu.
[2021-08-07] MEDS: NICOTINE 14MG/24HR PATCH TRANSDERM SCH (08:12)
[2021-08-07 08:16] VITALS: BP 119/61; PULSE 81; TEMP 97.4
[2021-08-07] MEDS: LORazepam 1 MG TAB PO PRN ×2 (12:18→20:58)
--- NOTE | 2021-08-07 14:38 | P.PN ---
Progress Note - Text Interval history: Patient was seen in his room. Initially he ignored the feature writer. Then later, he stated "you can go away due to" Mental status exam: General Appearance: 30-year-old male, appears stated age, dressed casually Behavior: Uncooperative, irritable Speech: Patient's speech is fluent and nonpressured. Mood/Affect: Irritable, constricted Suicidality/Homicidality: Could not assess Perceptions: Could not assess Though content/process: [There is no evidence of any delusional thought content and thought process is linear and goal-directed.] Memory and concentration: Could not assess Judgment and insight: Poor Assessment/Plan: Continue with current diagnosis. Patient continues to [place] for inpatient psychiatric admission for symptom stabilization and safety.[Patient will be maintained on current psychotropic medication regimen.] Monitor for medication compliance and for any psychotropic medication side effects. Will continue to monitor ongoing response to treatment. Encouraged participation in milieu.
[2021-08-07] MEDS: MAGNESIUM HYDROXIDE 2,400 MG/10 ML CUP PO PRN (15:12)
--- NOTE | 2021-08-08 10:04 | P.DS ---
Providers Date of admission: 07/30/21 02:20 Expected date of discharge: 08/08/21 Attending physician: Benji Carlson MD Consults: 07/30/21 02:36 Consult Physician Routine Consulting Provider: Chriss Galdamez Consult Reason/Comments: For H & P for Medical Follow Up Do you want consulting provider notified?: Yes Primary care physician: Stated None - Discharge Diagnosis(es) (1) Schizophrenia Current Visit: Yes Status: Acute Priority: High (2) Cannabis use disorder, mild, abuse Current Visit: Yes Status: Acute Priority: Medium (3) Nicotine dependence Current Visit: Yes Status: Acute Priority: Low Hospital Course: Admission HPI: Admission note was completed by Dr Nelson "This evaluation on Izaiah Urbina who is a 30-year-old male and was hospitalized with a court order for noncompliance and aggressive acting out. Patient is of a vague and a poor historian. Patient initially reported that he was compliant with all the treatment and recommendations and is not sure as to why the police picked him up. When asked as to what kind of treatment that he was receiving patient stated that he was not involved in any treatment. Patient when asked about his previous diagnoses or problems, reports that that he does not want to talk about it. 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 Patient admits that he has used marijuana and cocaine but did not report suicidal use. Patient's current drug screen up as to be negative for any drugs at this time. patient remains very guarded superficial and did not give any details about his family history or any previous psychiatric treatment." Hospital course: Upon admission to the unit patient was admitted involuntarily and ended up having a court hearing on 08/03 which resulted in a mental health treatment order. Patient got along well with other patients on the unit and followed unit protocol. Patient was compliant with the medications and denied any side effects throughout hospital course. Patient was started on Prolixin by mouth and transitioned onto Prolixin D IM, given 37.5 mg IM dose on 08/05 and will be due for his next dose in two weeks of 37.5 mg IM on 08/19. Patient spoke of his stressors and engaged in some group therapy however mainly kept to himself on the unit. Patient was also seen by medical team for history and physical exam. Throughout the course of the hospitalization patient gradually improved with regards to psychosis, mood, sleep and returned back to their baseline level of functioning. On the day of discharge patient denied any suicidal or homicidal ideations intent or plan denied any auditory or visual hallucinations. Patient endorsed wanting to live for his health and his family. The patient denied any access to guns or weapons. Patient denied any paranoia and did not endorse any delusions. Patient does not have a significant history of substance abuse however was counseled on abstaining from all substances including alcohol and marijuana. Patient was also counseled on the medications and need for regular compliance and was encouraged to follow-up with their outpatient appointment for mental health and also for primary care. Prior to discharge a family meeting will be arranged by psychiatric social worker supervisor to answer any questions and ensure safety upon discharge. psychiatric social worker supervisor to coordinate with patient's guardian today for discharge planning as he is not allowed back at his mother's house. Mental status exam: General Appearance: Patient appears to be stated age is alert, pleasant, and cooperative. Patient is in no acute distress and has improved hygiene and grooming Behavior: Patient is calmly seated without any agitated behavior. Speech: Patient's speech is fluent and nonpressured. Mood/Affect: Patient reports their mood is "ok", affect is congruent and constricted. Suicidality/Homicidality: Patient denies having any suicidal or homicidal ideation intent or plan. Perceptions: Patient denies any auditory or visual hallucinations. Though content/process: There is no evidence of any delusional thought content and thought process is linear and goal-directed. concrete Memory and concentration: AOX3, grossly intact for the purposes of this session. Can spell "WORLD" backwards correctly. Judgment and insight: chronically poor, however has improved with guarded prognosis Impression: Schizophrenia Cannabis use disorder mild Nicotine dependence Plan: -Continue with discharge today as patient has improved and stabilized psychiatrically and is not currently an imminent threat to himself and/or others. Patient will remain at chronically elevated risk for harm to self and/or others due to his impulsivity and chronically poor insight and judgment. -Continue medications: Patient will be titrated off of Prolixin by mouth. He received Prolixin D IM, given 37.5 mg IM dose on 08/05 and will be due for his next dose in two weeks of 37.5 mg IM on 08/19. -Patient was counseled on the need for medication compliance and appropriate follow-up at mental health and also primary care for medical issues. Patient verbalized understanding and agreed. -Social work to arrange for and conduct family meeting to ensure safety upon discharge and answer any questions/concerns. Social work also to arrange for patients follow up appointments with [facility] for psychiatric care along with follow up with primary care provider. -Patient counseled on abstaining from recreational drugs and marijuana and alcohol. Was informed/educated on the adverse effects on their physical and mental health. Patient verbally agreed and understood. -Patient was instructed to return to the hospital or seek immediate medical care if their psychiatric or medical symptoms do worsen or reoccur. Allergies Allergy/AdvReac Type Severity Reaction Status Date / Time diphenhydramine HCl Allergy Rash/Hives Verified 07/30/21 03:34 [From Benadryl] Laboratory Results WBC 10.3 k/uL (3.8-10.6) 07/29/21 02:31 RBC 3.84 m/uL (4.30-5.90) L 07/29/21 02:31 Hgb 12.6 gm/dL (13.0-17.5) L 07/29/21 02:31 Hct 37.1 % (39.0-53.0) L 07/29/21 02:31 MCV 96.5 fL (80.0-100.0) 07/29/21 02:31 MCH 32.8 pg (25.0-35.0) 07/29/21 02:31 MCHC 34.0 g/dL (31.0-37.0) 07/29/21 02:31 RDW 12.4 % (11.5-15.5) 07/29/21 02:31 Plt Count 346 k/uL (150-450) 07/29/21 02:31 MPV 6.5 07/29/21 02:31 Sodium 137 mmol/L (137-145) 07/29/21 02:31 Potassium 4.1 mmol/L (3.5-5.1) 07/29/21 02:31 Chloride 106 mmol/L (98-107) 07/29/21 02:31 Carbon Dioxide 26 mmol/L (22-30) 07/29/21 02:31 Anion Gap 5 mmol/L 07/29/21 02:31 BUN 16 mg/dL (9-20) 07/29/21 02:31 Creatinine 0.80 mg/dL (0.66-1.25) 07/29/21 02:31 Est GFR (CKD-EPI)AfAm >90 (>60 ml/min/1.73 sqM) 07/29/21 02:31 Est GFR (CKD-EPI)NonAf >90 (>60 ml/min/1.73 sqM) 07/29/21 02:31 Glucose 102 mg/dL (74-99) H 07/29/21 02:[address] Glu mg/dL 99 07/29/21 02:31 Hemoglobin A1c 5.1 % (0.0-6.0) 07/29/21 02:31 Calcium 9.1 mg/dL (8.4-10.2) 07/29/21 02:31 Total Bilirubin 0.6 mg/dL (0.2-1.3) 07/29/21 02:31 AST 23 U/L (17-59) 07/29/21 02:31 ALT 16 U/L (4-49) 07/29/21 02:31 Alkaline Phosphatase 74 U/L (38-126) 07/29/21 02:31 Total Protein 6.9 g/dL (6.3-8.2) 07/29/21 02:31 Albumin 4.1 g/dL (3.5-5.0) 07/29/21 02:31 Triglycerides 192.00 mg/dL (0.00-149.00) H 07/29/21 02:31 Cholesterol 169.00 mg/dL (0.00-200.00) 07/29/21 02:31 LDL Cholesterol, Calc 89.3 mg/dL (0.0-131.0) 07/29/21 02:31 VLDL Cholesterol, Calc 38.40 mg/dL (5.00-40.00) 07/29/21 02:31 HDL Cholesterol 41.30 mg/dL (40.00-60.00) 07/29/21 02:31 Cholesterol/HDL Ratio 4.09 Ratio 07/29/21 02:31 TSH 1.200 mIU/L (0.465-4.680) 07/29/21 02:31 Urine Opiates Screen Not Detected (NotDetected) 07/29/21 00:28 Ur Oxycodone Screen Not Detected (NotDetected) 07/29/21 00:28 Urine Methadone Screen Not Detected (NotDetected) 07/29/21 00:28 Ur Propoxyphene Screen Not Detected (NotDetected) 07/29/21 00:28 Ur Barbiturates Screen Not Detected (NotDetected) 07/29/21 00:28 U Tricyclic Antidepress Not Detected (NotDetected) 07/29/21 00:28 Ur Phencyclidine Scrn Not Detected (NotDetected) 07/29/21 00:28 Ur Amphetamines Screen Not Detected (NotDetected) 07/29/21 00:28 U Methamphetamines Scrn Not Detected (NotDetected) 07/29/21 00:28 U Benzodiazepines Scrn Not Detected (NotDetected) 07/29/21 00:28 Urine Cocaine Screen Not Detected (NotDetected) 07/29/21 00:28 U Marijuana (THC) Screen Not Detected (NotDetected) 07/29/21 00:28 Coronavirus (PCR) Not Detected (Not Detectd) 07/29/21 02:31 Vital Signs Temp 97.4 F L 08/07/21 08:14 Pulse 81 08/07/21 08:14 Resp 16 08/07/21 08:14 BP 119/61 08/07/21 08:14 Pulse Ox 98 08/07/21 08:14 Intake & Output 08/07/21 08/08/21 08/08/21 18:59 06:59 18:59 Weight 80.2 kg Patient Condition at Discharge: Stable Plan - Discharge Summary New Discharge Prescriptions: New fluPHENAZine decanoate [Prolixin Decanoate] 37.5 mg IM [id number] #1 each Acetaminophen Tab [Tylenol] 650 mg PO Q4HR PRN tab PRN Reason: Pain/Discomfort Discharge Medication List Acetaminophen Tab [Tylenol] 650 mg PO Q4HR PRN tab 08/08/21 [Rx] fluPHENAZine decanoate [Prolixin Decanoate] 37.5 mg IM [id number] #1 each 08/08/21 [Rx] Follow up Appointment(s)/Referral(s): None,Stated [Primary Care Provider] - 1-2 days Activity/Diet/Wound Care/Special Instructions: Activity and diet as tolerated. Avoid the use of street drugs and alcohol. Take all medications as prescribed. When you are in need of refills on your medications please contact your medical provider and/or outpatient psychiatrist to have this done. Please go to scheduled outpatient appointment for aftercare treatment. If symptoms return or become worse, call the crisis line at and/or go to the nearest emergency room for evaluation Discharge Disposition: OTHER INSTITUTION NOT DEFINED
== END 2021-08-08 17:22 | disposition home or self-care (01) | DRG 885 ==
LOC: EC 19:36 → 3MHU 07-30 02:20
PROVIDERS: ADMIT Psychiatry & Neurology Psychiatry; ATTEND Psychiatry & Neurology Psychiatry
DX: F25.9 Schizoaffective disorder, unspecified (principal); F43.23 Adjustment disorder with mixed anxiety and depressed mood; Z91.19 Patient's noncompliance with other medical treatment and regimen; T43.96XA Underdosing of unspecified psychotropic drug, initial encounter; Z91.128 Patient's intentional underdosing of medication regimen for other reason; F12.10 Cannabis abuse, uncomplicated; F14.10 Cocaine abuse, uncomplicated; F10.10 Alcohol abuse, uncomplicated; F17.210 Nicotine dependence, cigarettes, uncomplicated; Z90.49 Acquired absence of other specified parts of digestive tract; Z88.8 Allergy status to other drugs, medicaments and biological substances; Z20.822 Contact with and (suspected) exposure to COVID-19; Z56.0 Unemployment, unspecified; Z53.29 Procedure and treatment not carried out because of patient's decision for other reasons; Z71.51 Drug abuse counseling and surveillance of drug abuser; Z71.41 Alcohol abuse counseling and surveillance of alcoholic; Z71.89 Other specified counseling
CPT/HCPCS: 36415; 80053; 80061; 80306; 82075; 83036; 84443; 85027; 87635; 99285

== ENCOUNTER 2021-08-16 10:58 | Inpatient (IN) | payer MEDICARE, MEDICAID ==
[2021-08-16 11:46] LABS: Amphetamine Screen,Urine Not Detected (NotDetected); Barbiturate Screen,Urine Not Detected (NotDetected); Benzodiazepines Screen,Urine Not Detected (NotDetected); Cocaine Screen,Urine Not Detected (NotDetected); Methadone Screen, Urine Not Detected (NotDetected); Opiate Screen,Urine Not Detected (NotDetected); Oxycodone Screen, Urine Not Detected (NotDetected); Phencyclidine Screen,Urine Not Detected (NotDetected); Tricyclic Antidepressant,Urine Not Detected (NotDetected); Urn Cannabinoid Scrn Not Detected (NotDetected)
--- NOTE | 2021-08-16 12:31 | ED ---
Psych HPI - General Chief Complaint: Psychiatric Symptoms Stated Complaint: Mental health eval Time Seen by Provider: 08/16/21 11:18 Source: patient, RN notes reviewed Mode of arrival: ambulatory Limitations: no limitations - History of Present Illness Initial Comments: This a 30-year-old male presented from for psychiatric evaluation. Patient states that he is depressed, suicidal. Patient states he had a recent admission to [facility]. Patient states he plans to shoot himself. He states he wants to just because his life sucks. Patient states that he has no physical complaints. He does admit to alcohol use more frequent of recent. Denies any drug use. Patient states he is Prolixin injections. Patient's is requesting Ativan at this time. - Related Data Previous Rx's Medication Instructions Recorded Acetaminophen Tab [Tylenol] 650 mg PO Q4HR PRN tab 08/08/21 fluPHENAZine decanoate [Prolixin 37.5 mg IM [id number] #1 each 08/08/21 Decanoate] Allergies Allergy/AdvReac Type Severity Reaction Status Date / Time diphenhydramine HCl Allergy Rash/Hives Verified 08/16/21 12:46 [From Matt] Review of Systems ROS Statement: Those systems with pertinent positive or pertinent negative responses have been documented in the HPI. ROS Other: All systems not noted in ROS Statement are negative. Past Medical History Past Medical History: Unable to Obtain History of Any Multi-Drug Resistant Organisms: None Reported Past Surgical History: Unable to Obtain, Appendectomy Additional Past Surgical History / Comment(s): Pt reports he has no money and is depressed. Past Psychological History: Depression, Schizoaffective Disorder Smoking Status: Current every day smoker Past Alcohol Use History: Occasional Past Drug Use History: None Reported - Past Family History Father Additional Family Medical History / Comment(s): Patient will state that his parents of mother and father are both alive but he does not know their medical history. When asked about his brothers and sisters he just states I don't know. General Exam Limitations: no limitations General appearance: alert, in no apparent distress Head exam: Present: atraumatic, normocephalic, normal inspection Eye exam: Present: normal appearance, PERRL, EOMI. Absent: scleral icterus, conjunctival injection, periorbital swelling ENT exam: Present: normal exam, mucous membranes moist Neck exam: Present: normal inspection, full ROM. Absent: tenderness, meningismus, lymphadenopathy Respiratory exam: Present: normal lung sounds bilaterally. Absent: respiratory distress, wheezes, rales, rhonchi, stridor Cardiovascular Exam: Present: normal rhythm, tachycardia, normal heart sounds. Absent: systolic murmur, diastolic murmur, rubs, gallop, clicks Neurological exam: Present: alert, oriented X3 Psychiatric exam: Present: depressed, flat affect Skin exam: Present: warm, dry, intact, normal color. Absent: rash Course Vital Signs 08/16/21 11:10 Temperature 98 F Pulse Rate 119 H Respiratory 20 Rate Blood Pressure 150/50 O2 Sat by Pulse 98 Oximetry Medical Decision Making - Medical Decision Making 30-year-old male presented for psychiatric evaluation. Patient be admitted for further psychiatric treatment. Patient's was given Ativan 2 mg by mouth. - Lab Data Lab Results 08/16/21 Range/Units 11:25 Urine Opiates Screen Not Detected (NotDetected) Ur Oxycodone Screen Not Detected (NotDetected) Urine Methadone Screen Not Detected (NotDetected) Ur Propoxyphene Screen Not Detected (NotDetected) Ur Barbiturates Screen Not Detected (NotDetected) U Tricyclic Antidepress Not Detected (NotDetected) Ur Phencyclidine Scrn Not Detected (NotDetected) Ur Amphetamines Screen Not Detected (NotDetected) U Methamphetamines Scrn Not Detected (NotDetected) U Benzodiazepines Scrn Not Detected (NotDetected) Urine Cocaine Screen Not Detected (NotDetected) U Marijuana (THC) Screen Not Detected (NotDetected) Disposition Clinical Impression: Depression, Suicidal ideation Disposition: TRANSFER TO PSYCH HOSP/UNIT Referrals: None,Stated [Primary Care Provider] - 1-2 days Time of Disposition: 13:01
[2021-08-16] MEDS ORDERED: LORazepam 1 MG TAB PO STA (13:01)
[2021-08-16 21:07] VITALS: TEMP 98.2
[2021-08-16] MEDS ORDERED: LORazepam 1 MG TAB PO PRN (22:45)
[2021-08-16] MEDS ORDERED: MAG HYDROX/AL HYDROX/SIMETH 30 ML CUP PO PRN (22:45)
[2021-08-16] MEDS ORDERED: ACETAMINOPHEN TAB 325 MG TAB PO PRN (22:45)
[2021-08-16] MEDS ORDERED: MAGNESIUM HYDROXIDE 2,400 MG/10 ML CUP PO PRN (22:45)
[2021-08-16] MEDS ORDERED: LORazepam 2 MG/ML INJ IM PRN (22:48)
[2021-08-16] MEDS ORDERED: flUPHENAZine 2.5 MG/ML (MDV) 10 ML VIAL IM PRN (22:48)
[2021-08-17 01:25] VITALS: BP 128/87; PULSE 90; RESP 20
--- NOTE | 2021-08-17 04:46 | P.PN ---
Progress Note - Text Progress Note Date: 08/17/21 Attempted to see the patient at 0100 on 08/17. The patient refused to be seen or evaluated.
[2021-08-17] MEDS: NICOTINE 14MG/24HR PATCH TRANSDERM SCH (08:42)
[2021-08-17 11:40] LABS: ALT 20 U/L (4-49); AST 22 U/L (17-59); African American GFR (CKD) >90 (>60 ml/min/1.73 sqM); Albumin 4.9 g/dL (3.5-5.0); Alkaline Phosphatase 77 U/L (38-126); Anion Gap 12 mmol/L; Blood Urea Nitrogen 11 mg/dL (9-20); Calcium 9.5 mg/dL (8.4-10.2); Carbon Dioxide 21 mmol/L (22-30); Chloride 106 mmol/L (98-107); Glucose 106 mg/dL (74-99); Non-African American GFR(CKD) >90 (>60 ml/min/1.73 sqM); Potassium 4.8 mmol/L (3.5-5.1); Sodium 139 mmol/L (137-145); Total Bilirubin 0.7 mg/dL (0.2-1.3); Total Protein 8.3 g/dL (6.3-8.2)
[2021-08-17 11:51] LABS: Basophils % (A) 1 %; Eosinophils # (A) 0.1 k/uL (0-0.7); Eosinophils % (A) 2 %; HCT 47.3 % (39.0-53.0); HGB 15.4 gm/dL (13.0-17.5); Lymphocytes # (A) 1.3 k/uL (1.0-4.8); Lymphocytes % (A) 22 %; MCH 32.7 pg (25.0-35.0); MCHC 32.7 g/dL (31.0-37.0); MCV 100.1 fL (80.0-100.0); Mean Platelet Volume 6.7; Monocytes # (A) 0.3 k/uL (0-1.0); Monocytes % (A) 5 %; Neutrophils # (A) 4.2 k/uL (1.3-7.7); Neutrophils % (A) 69 %; Platelet Count 371 k/uL (150-450); RBC 4.72 m/uL (4.30-5.90); RDW 12.7 % (11.5-15.5); WBC 6.1 k/uL (3.8-10.6)
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
[2021-08-17] MEDS: DULoxetine HCL 30 MG CAPSULE.DR PO SCH (13:31)
[2021-08-17 19:55] LABS: Chol/HDL Ratio 4.04 Ratio; LDL Cholesterol,Calculated 96.5 mg/dL (0.0-131.0)
[2021-08-18] MEDS: NICOTINE 14MG/24HR PATCH TRANSDERM SCH (08:18)
[2021-08-18] MEDS: DULoxetine HCL 30 MG CAPSULE.DR PO SCH (08:18)
[2021-08-18] MEDS ORDERED: fluPHENAZine DECANOATE 25 MG/ML 5ML MDV IM ONE (09:00)
--- NOTE | 2021-08-18 10:39 | P.PN ---
Progress Note - Text Progress Note Date: 08/18/21 Interval History: Patient was seen lying in his bed this morning and was directable and agreeable to speak with report writer today. Patient appeared to be more directable. He states that his mood is "good" and continues to have a constricted affect. She is denying any anxiety today. He states that Cymbalta has been helping him. He claims that he did receive the Prolixin D injection this morning and tolerated it well. She claims that he is still unsure of where he is going to be when he is discharged from the hospital. He states that he is not going to groups as he is disinterested in them. He has a fair appetite. He states that he slept fairly last night. At this time patient denies any suicidal or homical ideations, intent or plan. Patient denies any auditory, visual hallucinations and denies any paranoia or delusions. Patient denies any side effects from the medications and has been compliant with meds. Mental Status Exam: General Appearance: Patient appears to be stated age is alert, attempts to be cooperative, not paranoid today. improving hygiene and grooming. Behavior: Patient is calmly seated without any agitated behavior. more cooperative Speech: Patient's speech is fluent and nonpressured. concrete, monotone Mood/Affect: Patient reports their mood is "better", affect is congruent and constricted. Suicidality/Homicidality: Patient denies having any suicidal or homicidal ideation intent or plan. Perceptions: Patient denies any auditory or visual hallucinations. Though content/process: There is no evidence of any delusional thought content and thought process is linear and goal-directed. concrete. Memory and concentration: AOX3, grossly intact for the purposes of this session. Judgment and insight: chronically poor, improving mildly Assessment Schizophrenia Cannabis use disorder mild Nicotine dependence Plan: -Patient continues to meet criteria for inpatient psychiatric admission for symptom stabilization and safety. Patient has not signed adult voluntary form and medication consent and was placed in patient's chart. -Medications: Cymbalta 30 mg daily for mood/anxiety. Received Prolixin D 50 mg IM on 08/18 for psychosis, will be due for his next dose on 09/01/21 -When necessary Ativan and Haldol for agitation/aggression. -NRT - nicotine patch -SW on board for discharge planning. Encouraged the patient to participate in milieu. Patient is currently on an [facility]. We'll look into other placement options for patient as he is homeless. likely discharge tomorrow.
--- NOTE | 2021-08-19 01:24 | P.CONS ---
History of Present Illness - Reason for Consult Consult date: 08/18/21 - History of Present Illness Patient is a 30-year-old male with a PMH of schizoaffective disorder and tobacco abuse who was brought into the emergency room due to depression and suicidal ideation. The patient was subsequently admitted to the mental health unit where he was seen and evaluated. The patient reported feeling down about his life, stating that "it sucks". He refused to elaborate further on any specific str essors or situations that are causing him anguish. He denied any physical complaints at the time of interview. Denied experiencing fever, chills, cough, chest pain, shortness breath, nausea, vomiting, abdominal pain, diarrhea. Reported smoking 1 pack of cigarettes daily. Denied alcohol or substance use. Laboratory evaluation was reviewed. Review of systems: Pertinent positives and negatives as discussed in HPI, a complete review of systems was performed and all other systems are negative. Physical examination: General: non toxic, no distress, appears at stated age, normal weight Derm: no unusual rashes/lesions no unusual ecchymoses, warm, dry Head: atraumatic, normocephalic, symmetric Eyes: EOMI, no lid lag, anicteric sclera, pupils equal round reactive to light ENT: Nose and ears atraumatic, no thrush, no pharyngeal erythema Neck: No thyromegaly, no cervical lymphadenopathy, trachea midline, supple Mouth: no lip lesion, mucus membranes moist Cardiovascular: S1S2 reg, no murmur, positive posterior tibial pulse bilateral, no edema, capillary refill less than 2 seconds Lungs: CTA bilateral, no rhonchi, no rales , no accessory muscle use Abdominal: soft, nontender to palpation, no guarding, no appreciable organomegaly, normal bowel sounds Ext: no gross muscle atrophy, muscle strength 5 out of 5 in all 4 extremities grossly, no contractures, Neuro: CN II-XI grossly intact, light touch intact all 4 extremities, finger to nose within normal limits, Psych: Alert, oriented, flat affect Assessment/plan Depression and suicidal ideation -As per psychiatry Tobacco abuse -Advised on importance of cessation Thank you for allowing us to participate in the care of this patient. We will follow peripherally. Do not hesitate to contact us with questions. Someone can be reached from the [facility] hospitalist group at all hours of the day at [phone]. Past Medical History Past Medical History: Unable to Obtain History of Any Multi-Drug Resistant Organisms: None Reported Past Surgical History: Unable to Obtain, Appendectomy Additional Past Surgical History / Comment(s): Pt reports he has no money and is depressed. Smoking Status: Current every day smoker - Past Family History Father Additional Family Medical History / Comment(s): Patient will state that his parents of mother and father are both alive but he does not know their medical history. When asked about his brothers and sisters he just states I don't know. Medications and Allergies Home Medications Medication Instructions Recorded Confirmed Type Acetaminophen Tab [Tylenol] 650 mg PO Q4HR PRN tab 08/08/21 08/16/21 Rx fluPHENAZine decanoate [Prolixin 37.5 mg IM [id number] #1 each 08/08/21 08/16/21 Rx Decanoate] Allergies Allergy/AdvReac Type Severity Reaction Status Date / Time diphenhydramine HCl Allergy Rash/Hives Verified 08/16/21 12:46 [From Benadryl] Results CBC & Chem 7: 08/17/21 10:41 08/17/21 10:41
[2021-08-19] MEDS: NICOTINE 14MG/24HR PATCH TRANSDERM SCH (08:11)
[2021-08-19] MEDS: DULoxetine HCL 30 MG CAPSULE.DR PO SCH (08:11)
[2021-08-19] MEDS ORDERED: fluPHENAZine DECANOATE 25 MG/ML 5ML MDV IM SCH (09:00)
--- NOTE | 2021-08-19 11:30 | P.DS ---
Providers Date of admission: 08/16/21 20:47 Expected date of discharge: 08/19/21 Attending physician: Benji Carlson MD Consults: 08/16/21 22:45 Consult Physician Routine Consulting Provider: Chriss Galdamez Consult Reason/Comments: H&P and medical Do you want consulting provider notified?: Yes Primary care physician: Stated None - Discharge Diagnosis(es) (1) Schizophrenia Current Visit: Yes Status: Acute Priority: High (2) Cannabis use disorder, mild, abuse Current Visit: Yes Status: Acute Priority: Medium (3) Nicotine dependence Current Visit: Yes Status: Acute Priority: Low Hospital Course: Admission HPI: Admission note was completed by entry writer "Patient is a 30-year-old male with history of schizoaffective disorder, with multiple psychiatric admissions in the past currently on Prolixin Decanoate and a court order. Patient presented to the hospital yesterday complaining of depression and suicidal thoughts. Apparently patient made comments of wanting to shoot himself as his plan. Patient has a long history of schizoaffective disorder with multiple psychiatric admissions. He was last psychiatrically admitted 2 weeks ago on the mental health unit. At that time patient placed on a mental health treatment order due to noncompliance of medications. Patient received Prolixin D 37.5 mg IM on 08/05 and was supposed to be scheduled for 2 weeks from then for his second injection. Patient did go to a follow-up appointment at [facility]. He was seen in the hallways and agreeable to speak with entry writer. Patient appears to be disheveled in appearance. He states that he was feeling depressed before coming into the hospital. He claims that he's been "bouncing around" from different motels and hotels in the area. He states that he is not allowed back at his mother's house. He states that he "my life sucks" and claims that "I understand what's g oing on". He claims that Cymbalta has helped him in the past with his depression. He states that he feels hopeless and worthless. He claims that he feels paranoid and that "people are after me" however refused to speak with entry writer for about 2 who may be after him and what they're going to do to him. He continues to believe that he does not need medications, poor insight and judgment. He states that he smokes marijuana and cigarettes. Patient denies any current suicidal or homicidal ideations intent or plan. At this time patient denies any auditory or visual hallucinations. Patient denies any flight of ideas racing thoughts and increased in goal directed behavior. " Hospital course: Upon admission to the unit patient was admitted on an active treatment order, involuntarily. Patient got along well with other patients on the unit and followed unit protocol. Patient was compliant with the medications and denied any side effects throughout hospital course. Patient was started on back on Prolixin decanoate, she received 50 mg IM injection on 08/18 for psychosis, the next dose will be due on 09/01 and every 2 weeks thereafter. Patient was also started on Cymbalta 30 mg daily for mood/anxiety. Patient spoke of his stressors however did not participate in many groups while on the unit. Patient was also seen by medical team for history and physical exam. Throughout the course of the hospitalization patient gradually improved with regards to psychosis, mood/anxiety, sleep and returned back to their baseline level of functioning. On the day of discharge patient denied any suicidal or homicidal ideations intent or plan denied any auditory or visual hallucinations. Patient endorsed wanting to live for his future and his health. The patient denied any access to guns or weapons. Patient denied any paranoia and did not endorse any delusions. Patient does have a significant history of substance abuse and was counseled on abstaining from all substances including alcohol and marijuana. Patient elected to do outpatient substance use treatment program through [facility]. Patient was also counseled on the medications and need for regular compliance and was encouraged to follow-up with their outpatient appointment for mental health and also for primary care. Patient is currently homeless and was previously staying at hotels in motels in the area. Patient will be referred to assisted today. Mental status exam: General Appearance: Patient appears to be stated age is alert, concrete, directable. Patient is in no acute distress and has improved hygiene and grooming Behavior: Patient is calmly seated without any agitated behavior. Speech: Patient's speech is fluent and nonpressured. Monotone and concrete. Mood/Affect: Patient reports their mood is "good", affect is congruent and constricted Suicidality/Homicidality: Patient denies having any suicidal or homicidal ideation intent or plan. Perceptions: Patient denies any auditory or visual hallucinations. Though content/process: There is no evidence of any delusional thought content and thought process is linear and goal-directed. Memory and concentration: AOX3, grossly intact for the purposes of this session. Can spell "WORLD" backwards correctly. Judgment and insight: chronically poor, however has improved with guarded prognosis Impression: Schizophrenia Cannabis use disorder mild Nicotine dependence Plan: -Continue with discharge today as patient has improved and stabilized psychiatrically and is not currently an imminent threat to himself and/or others. Patient will remain at chronically elevated risk for harm to self and/or others due to his impulsivity and chronically poor insight and judgment -Continue medications: Patient will be due for his next q 2weeks Prolixin D 50 mg IM on 09/01 and received a dose while on the unit on 08/18. Continue Cymbalta 30 mg daily for mood/anxiety. -Patient was counseled on the need for medication compliance and appropriate follow-up at mental health and also primary care for medical issues. Patient verbalized understanding and agreed. -Social work to contact and coordinate discharge planning with guardian and [facility]. Patient will be discharged today to assisted. Social work also to arrange for patients follow up appointments with [facility] for psychiatric care along with follow up with primary care provider. -Patient counseled on abstaining from recreational drugs and marijuana and alcohol. Was informed/educated on the adverse effects on their physical and mental health. Patient verbally agreed and understood. -Patient was instructed to return to the hospital or seek immediate medical care if their psychiatric or medical symptoms do worsen or reoccur. Allergies Allergy/AdvReac Type Severity Reaction Status Date / Time diphenhydramine HCl Allergy Rash/Hives Verified 08/16/21 12:46 [From Benadryl] Laboratory Results WBC 6.1 k/uL (3.8-10.6) 08/17/21 10:41 RBC 4.72 m/uL (4.30-5.90) 08/17/21 10:41 Hgb 15.4 gm/dL (13.0-17.5) 08/17/21 10:41 Hct 47.3 % (39.0-53.0) 08/17/21 10:41 MCV 100.1 fL (80.0-100.0) H 08/17/21 10:41 MCH 32.7 pg (25.0-35.0) 08/17/21 10:41 MCHC 32.7 g/dL (31.0-37.0) 08/17/21 10:41 RDW 12.7 % (11.5-15.5) 08/17/21 10:41 Plt Count 371 k/uL (150-450) 08/17/21 10:41 MPV 6.7 08/17/21 10:41 Neutrophils % 69 % 08/17/21 10:41 Lymphocytes % 22 % 08/17/21 10:41 Monocytes % 5 % 08/17/21 10:41 Eosinophils % 2 % 08/17/21 10:41 Basophils % 1 % 08/17/21 10:41 Neutrophils # 4.2 k/uL (1.3-7.7) 08/17/21 10:41 Lymphocytes # 1.3 k/uL (1.0-4.8) 08/17/21 10:41 Monocytes # 0.3 k/uL (0-1.0) 08/17/21 10:41 Eosinophils # 0.1 k/uL (0-0.7) 08/17/21 10:41 Basophils # 0.0 k/uL (0-0.2) 08/17/21 10:41 Sodium 139 mmol/L (137-145) 08/17/21 10:41 Potassium 4.8 mmol/L (3.5-5.1) 08/17/21 10:41 Chloride 106 mmol/L (98-107) 08/17/21 10:41 Carbon Dioxide 21 mmol/L (22-30) L 08/17/21 10:41 Anion Gap 12 mmol/L 08/17/21 10:41 BUN 11 mg/dL (9-20) 08/17/21 10:41 Creatinine 0.76 mg/dL (0.66-1.25) 08/17/21 10:41 Est GFR (CKD-EPI)AfAm >90 (>60 ml/min/1.73 sqM) 08/17/21 10:41 Est GFR (CKD-EPI)NonAf >90 (>60 ml/min/1.73 sqM) 08/17/21 10:41 Glucose 106 mg/dL (74-99) H 08/17/21 10:[address] Glu mg/dL 95 04/27/22 10:41 Hemoglobin A1c 4.9 % (0.0-6.0) 08/17/21 10:41 Calcium 9.5 mg/dL (8.4-10.2) 08/17/21 10:41 Total Bilirubin 0.7 mg/dL (0.2-1.3) 08/17/21 10:41 AST 22 U/L (17-59) 08/17/21 10:41 ALT 20 U/L (4-49) 08/17/21 10:41 Alkaline Phosphatase 77 U/L (38-126) 08/17/21 10:41 Total Protein 8.3 g/dL (6.3-8.2) H 08/17/21 10:41 Albumin 4.9 g/dL (3.5-5.0) 08/17/21 10:41 Triglycerides 206.00 mg/dL (0.00-149.00) H 08/17/21 10:41 Cholesterol 183.00 mg/dL (0.00-200.00) 08/17/21 10:41 LDL Cholesterol, Calc 96.5 mg/dL (0.0-131.0) 08/17/21 10:41 VLDL Cholesterol, Calc 41.20 mg/dL (5.00-40.00) H 08/17/21 10:41 HDL Cholesterol 45.30 mg/dL (40.00-60.00) 08/17/21 10:41 Cholesterol/HDL Ratio 4.04 Ratio 08/17/21 10:41 TSH 1.760 mIU/L (0.465-4.680) 08/17/21 10:41 Urine Opiates Screen Not Detected (NotDetected) 08/16/21 11:25 Ur Oxycodone Screen Not Detected (NotDetected) 08/16/21 11:25 Urine Methadone Screen Not Detected (NotDetected) 08/16/21 11:25 Ur Propoxyphene Screen Not Detected (NotDetected) 08/16/21 11:25 Ur Barbiturates Screen Not Detected (NotDetected) 08/16/21 11:25 U Tricyclic Antidepress Not Detected (NotDetected) 08/16/21 11:25 Ur Phencyclidine Scrn Not Detected (NotDetected) 08/16/21 11:25 Ur Amphetamines Screen Not Detected (NotDetected) 08/16/21 11:25 U Methamphetamines Scrn Not Detected (NotDetected) 08/16/21 11:25 U Benzodiazepines Scrn Not Detected (NotDetected) 08/16/21 11:25 Urine Cocaine Screen Not Detected (NotDetected) 08/16/21 11:25 U Marijuana (THC) Screen Not Detected (NotDetected) 08/16/21 11:25 Coronavirus (PCR) Not Detected (Not Detectd) 08/16/21 13:20 Vital Signs Temp 98.2 F 08/16/21 22:45 Pulse 90 08/16/21 22:45 Resp 20 08/16/21 22:45 BP 128/87 08/16/21 22:45 Pulse Ox 98 08/16/21 22:45 Patient Condition at Discharge: Stable Plan - Discharge Summary Discharge Rx Participant: No New Discharge Prescriptions: New Nicotine 14Mg/24Hr Patch [Habitrol] 1 patch TRANSDERM DAILY 14 Days patch fluPHENAZine decanoate [Prolixin Decanoate] 50 mg IM [id number] #1 each DULoxetine HCL [Cymbalta] 30 mg PO DAILY 30 Days Discontinued fluPHENAZine decanoate [Prolixin Decanoate] 37.5 mg IM [id number] #1 each Acetaminophen Tab [Tylenol] 650 mg PO Q4HR PRN tab PRN Reason: Pain/Discomfort Discharge Medication List DULoxetine HCL [Cymbalta] 30 mg PO DAILY 30 Days 08/19/21 [Rx] Nicotine 14Mg/24Hr Patch [Habitrol] 1 patch TRANSDERM DAILY 14 Days patch 08/19/21 [Rx] fluPHENAZine decanoate [Prolixin Decanoate] 50 mg IM [id number] #1 each 08/19/21 [Rx] Follow up Appointment(s)/Referral(s): [facility] [Outside] - 08/19/21 11:00 am (08-19-21 @ 11am on unit w/ ACT team 08-30-21 @ 3:[address] Gonzalez at [facility]) [facility] Patient Instructions/Handouts: How to Stop Smoking (DC), Depression (DC), Schizophrenia (DC), Help Prevent Suicide (DC), Suicide Prevention (DC) Activity/Diet/Wound Care/Special Instructions: Activity and diet as tolerated. Avoid the use of street drugs and alcohol. Take all medications as prescribed. When you are in need of refills on your medications please contact your medical provider and/or outpatient psychiatrist to have this done. Please go to scheduled outpatient appointment for aftercare treatment. If symptoms return or become worse, call the crisis line at and/or go to the nearest emergency room for evaluation Discharge Disposition: OTHER INSTITUTION NOT DEFINED
== END 2021-08-19 14:45 | disposition home or self-care (01) | DRG 885 ==
LOC: EEVIPCON 10:58 → EC 10:58 → 3MHU 20:47
PROVIDERS: ADMIT Psychiatry & Neurology Psychiatry; ATTEND Psychiatry & Neurology Psychiatry
DX: F25.9 Schizoaffective disorder, unspecified (principal); R45.851 Suicidal ideations; F12.10 Cannabis abuse, uncomplicated; F17.210 Nicotine dependence, cigarettes, uncomplicated; F41.9 Anxiety disorder, unspecified; Z59.00 Homelessness unspecified; Z79.899 Other long term (current) drug therapy; Z91.14 Patient's other noncompliance with medication regimen; Z20.822 Contact with and (suspected) exposure to COVID-19
CPT/HCPCS: 80053; 80061; 80306; 82075; 83036; 84443; 85025; 87635; 99285

== ENCOUNTER 2022-11-14 23:50 | Emergency (ER) | payer MEDICARE, OTHER ==
[2022-11-15 00:02] VITALS: BP 120/64; PULSE 129; RESP 20; TEMP 97.9
[2022-11-15] MEDS ORDERED: LORazepam 2 MG/ML INJ IM STA (00:08)
[2022-11-15] MEDS ORDERED: TOPICAL SKIN ADHESIVE 1 EACH AMP TOPICAL ONE (00:09)
--- NOTE | 2022-11-15 00:55 | ED ---
Medical Clearance HPI - General Chief complaint: Medical Clearance Stated complaint: Medical Clearence Time Seen by Provider: 11/14/22 23:58 Source: patient, police, RN notes reviewed, old records reviewed Mode of arrival: ambulatory Limitations: no limitations - History of Present Illness Initial comments: 31-year-old male presents for medical clearance for longterm. He had been apprehended by local police after being accused of left. Patient Resisted arrest apparently and there was injury to his face. There was bleeding. No loss consciousness. No anticoagulation. Laceration noted above the left eye. Home medications: Home Medications Medication Instructions Recorded Confirmed No Known Home Medications 11/13/22 11/13/22 Allergies/Adverse reactions: Allergies Allergy/AdvReac Type Severity Reaction Status Date / Time diphenhydramine HCl Allergy Rash/Hives Verified 11/13/22 10:19 [From Matt] Review of Systems ROS Statement: Those systems with pertinent positive or pertinent negative responses have been documented in the HPI. ROS Other: All systems not noted in ROS Statement are negative. Past Medical History Past Medical History: Unable to Obtain History of Any Multi-Drug Resistant Organisms: None Reported Past Surgical History: Unable to Obtain, Appendectomy Additional Past Surgical History / Comment(s): Pt reports he has no money and is depressed. Past Psychological History: Depression, Schizoaffective Disorder Smoking Status: Current every day smoker - Past Family History Father Additional Family Medical History / Comment(s): Patient will state that his parents of mother and father are both alive but he does not know their medical history. When asked about his brothers and sisters he just states I don't know. General Exam General appearance: alert, in no apparent distress Head exam: Present: other (Stellate laceration over the left eye) Eye exam: Present: PERRL, EOMI Neck exam: Present: normal inspection. Absent: tenderness, meningismus Respiratory exam: Present: normal lung sounds bilaterally. Absent: respiratory distress, wheezes Cardiovascular Exam: Present: regular rate, normal rhythm GI/Abdominal exam: Present: soft. Absent: distended Extremities exam: Present: normal inspection, normal capillary refill Neurological exam: Present: alert. Absent: motor sensory deficit Psychiatric exam: Present: agitated Skin exam: Present: warm, dry, other (Laceration as above) Course Vital Signs 11/14/22 23:51 Temperature 97.9 F Pulse Rate 129 H Respiratory 20 Rate Blood Pressure 120/64 O2 Sat by Pulse 93 L Oximetry Procedures - Laceration Laceration #1 Consent Obtained: verbal consent Indication: laceration Site: face Size (cm): 3 Description: stellate Depth: simple, single layer Pre-repair: wound explored, irrigated extensively Type of Sutures: other (Skin adhesive) Patient Tolerated Procedure: well - Restraint - Face to Face Restraint Occurrence 1 Patient's Immediate Situation: Endangers self safety, Endangers staff safety, Violent behavior Patient's Reaction to the Intervention: Uncooperative, Angry, Belligerent Patient's Medical & Behavioral Condition: Awake, Alert Need to Continue or Terminate Restraint or Seclusion: Continue Face to Face Eval of Restraint Date: 11/15/22 Face to Face Eval of Restraint Time: 23:55 Medical Decision Making - Medical Decision Making Was pt. sent in by a medical professional or institution (, PA, TOBACCO WAREHOUSE AGENT, urgent care, hospital, or intermediate...) When possible be specific @ -No Did you speak to anyone other than the patient for history (EMS, parent, family, police, friend...)? What history was obtained from this source @ -[Local police Did you review nursing and triage notes (agree or disagree)? Why? @ -I reviewed and agree with nursing and triage notes Were old charts reviewed (outside hosp., previous admission, EMS record, old EKG, old radiological studies, urgent care reports/EKG's, intermediate records)? Report findings @ -No old charts were reviewed Differential Diagnosis (chest pain, altered mental status, abdominal pain women, abdominal pain men, vaginal bleeding, weakness, fever, dyspnea, syncope, headache, dizziness, GI bleed, back pain, seizure, CVA, palpatations, mental health, musculoskeletal)? @ Traumatic injury to the face EKG interpreted by me (3pts min.). @ -As above X-rays interpreted by me (1pt min.). @ -None done CT interpreted by me (1pt min.). @ -None done U/S interpreted by me (1pt. min.). @ -None done What testing was considered but not performed or refused? (CT, X-rays, U/S, labs)? Why? @ -None What meds were considered but not given or refused? Why? @ -None Did you discuss the management of the patient with other professionals (professionals i.e. Dr., PA, TOBACCO WAREHOUSE AGENT, lab, RT, psych nurse, social worker health services, night stocker, teacher, medical laboratory technical officer, social work case manager)? Give summary @ -No Was smoking cessation discussed for >3mins.? @ -No Was critical care preformed (if so, how long)? @ -No Were there social determinants of health that impacted care today? How? (Homelessness, low income, unemployed, alcoholism, drug addiction, transportation, low edu. Level, literacy, decrease access to med. care, longterm, rehab)? @ -No Was there de-escalation of care discussed even if they declined (Discuss DNR or withdrawal of care, Hospice)? DNR status @ -No What co-morbidities impacted this encounter? (DM, HTN, Smoking, COPD, CAD, Cancer, CVA, ARF, Chemo, Hep., AIDS, mental health diagnosis, sleep apnea, morbid obesity)? @ -[Depression Was patient admitted / discharged? Hospital course, mention meds given and route, prescriptions, significant lab abnormalities, going to OR and other pertinent info. @ -[Patient presents emergency department for facial laceration and medical clearance for longterm. Patient is agitated but alert. He is in handcuffs and requires leg restraints. He has a stellate laceration to the left forehead which is extensively irrigated and is superficial and repaired with skin adhesive. Patient is medically cleared for longterm Undiagnosed new problem with uncertain prognosis? @ -No Drug Therapy requiring intensive monitoring for toxicity (Heparin, Nitro, Insulin, Cardizem)? @ -No Were any procedures done? @ -No Diagnosis/symptom? @ -[Facial laceration, minor head injury Acute, or Chronic, or Acute on Chronic? @ -Acute Uncomplicated (without systemic symptoms) or Complicated (systemic symptoms)? @ -default Side effects of treatment? @ -No Exacerbation, Progression, or Severe Exacerbation? @ -No Poses a threat to life or bodily function? How? (Chest pain, [place], [place], pneumonia, PE, COPD, DKA, ARF, appy, cholecystitis, CVA, Diverticulitis, Homicidal, Suicidal, threat to staff... and all critical care pts) @ -[None at this time Disposition Clinical Impression: Depression, Facial laceration, Minor head injury without loss of consciousness Disposition: HOME SELF-CARE Condition: Fair Instructions (If sedation given, give patient instructions): Laceration (ED) Is patient prescribed a controlled substance at d/c from ED?: No Referrals: None,Stated [Primary Care Provider] - 1-2 days Time of Disposition: 00:55
[2022-11-15 10:35] LABS: Hepatitis B Surface Antigen Nonreactive; Hepatitis C IgG Antibody Nonreactive
== END 2022-11-15 01:10 | disposition home or self-care (01) ==
LOC: EC 23:50
DX: S01.81XA Laceration without foreign body of other part of head, initial encounter (principal); F32.A Depression, unspecified; F17.200 Nicotine dependence, unspecified, uncomplicated; Z88.8 Allergy status to other drugs, medicaments and biological substances; Y09 Assault by unspecified means
CPT/HCPCS: 99283; 96372; 12013; 86803; 86701; 36415; 87340; 86704; J2060

== ENCOUNTER 2022-11-17 11:15 | Emergency (ER) | payer MEDICARE, OTHER ==
[2022-11-17 11:33] VITALS: RESP 18
--- NOTE | 2022-11-17 13:08 | ED ---
Psych HPI - General Chief Complaint: Psychiatric Symptoms Stated Complaint: Mental Health-Petition Time Seen by Provider: 11/17/22 11:34 Source: patient, police, RN notes reviewed Mode of arrival: ambulatory Limitations: no limitations - History of Present Illness Initial Comments: 32-year-old male presents emergency Department with police from group home for psychiatric evaluation. Patient reportedly been having recheck delusional paranoid thoughts. Patient does have a history of psychiatric disorders. Patient used to be on Prolixin. Patient is not very forthcoming with information denies being suicidal homicidal - Related Data Home Medications Medication Instructions Recorded Confirmed No Known Home Medications 11/13/22 11/13/22 Allergies Allergy/AdvReac Type Severity Reaction Status Date / Time diphenhydramine HCl Allergy Rash/Hives Verified 11/13/22 10:19 [From Matt] Review of Systems ROS Statement: Those systems with pertinent positive or pertinent negative responses have been documented in the HPI. ROS Other: All systems not noted in ROS Statement are negative. Past Medical History Past Medical History: No Reported History History of Any Multi-Drug Resistant Organisms: None Reported Past Surgical History: Unable to Obtain, Appendectomy Additional Past Surgical History / Comment(s): Pt reports he has no money and is depressed. Past Psychological History: Depression, Schizoaffective Disorder Smoking Status: Former smoker Past Alcohol Use History: None Reported Past Drug Use History: None Reported - Past Family History Father Additional Family Medical History / Comment(s): Patient will state that his parents of mother and father are both alive but he does not know their medical history. When asked about his brothers and sisters he just states I don't know. General Exam Limitations: no limitations General appearance: alert, in no apparent distress Head exam: Present: atraumatic, normocephalic, normal inspection Eye exam: Present: normal appearance, PERRL, EOMI. Absent: scleral icterus, conjunctival injection, periorbital swelling ENT exam: Present: normal exam, mucous membranes moist Neck exam: Present: normal inspection, full ROM. Absent: tenderness, meningismus, lymphadenopathy Respiratory exam: Present: normal lung sounds bilaterally. Absent: respiratory distress, wheezes, rales, rhonchi, stridor Cardiovascular Exam: Present: regular rate, normal rhythm, normal heart sounds. Absent: systolic murmur, diastolic murmur, rubs, gallop, clicks Neurological exam: Present: alert Psychiatric exam: Present: flat affect Course Vital Signs 11/17/22 11/17/22 11:27 14:07 Temperature 98.2 F Pulse Rate 73 72 Respiratory 18 18 Rate Blood Pressure 125/82 127/80 O2 Sat by Pulse 99 96 Oximetry Medical Decision Making - Medical Decision Making Was pt. sent in by a medical professional or institution (, OMAR, DONOR RELATIONS ASSOCIATE, urgent care, hospital, or jail...) When possible be specific @ -No Did you speak to anyone other than the patient for history (EMS, parent, family, police, friend...)? What history was obtained from this source @ -Program Manager Rn who about the patient and with petition Did you review nursing and triage notes (agree or disagree)? Why? @ -I reviewed and agree with nursing and triage notes Were old charts reviewed (outside hosp., previous admission, EMS record, old EKG, old radiological studies, urgent care reports/EKG's, jail records)? Report findings @ -No old charts were reviewed Differential Diagnosis (chest pain, altered mental status, abdominal pain women, abdominal pain men, vaginal bleeding, weakness, fever, dyspnea, syncope, headache, dizziness, GI bleed, back pain, seizure, CVA, palpatations, mental health, musculoskeletal)? @ -Schizophrenic, bipolar disorder, depression, anxiety EKG interpreted by me (3pts min.). @ -None X-rays interpreted by me (1pt min.). @ -None done CT interpreted by me (1pt min.). @ -None done U/S interpreted by me (1pt. min.). @ -None done What testing was considered but not performed or refused? (CT, X-rays, U/S, labs)? Why? @ -None What meds were considered but not given or refused? Why? @ -None Did you discuss the management of the patient with other professionals (professionals i.e. OMAR Cohen, DONOR RELATIONS ASSOCIATE, lab, RT, psych nurse, criminal justice social worker, child health associate, teacher, third officer, therapeutic case manager)? Give summary @ -Patient was evaluated by EPS case discussed with psychiatrist patient received Prolixin injection was discharged back to group home Was smoking cessation discussed for >3mins.? @ -No Was critical care preformed (if so, how long)? @ -No Were there social determinants of health that impacted care today? How? (Homelessness, low income, unemployed, alcoholism, drug addiction, transportation, low edu. Level, literacy, decrease access to med. care, group home, rehab)? @ -No Was there de-escalation of care discussed even if they declined (Discuss DNR or withdrawal of care, Hospice)? DNR status @ -No What co-morbidities impacted this encounter? (DM, HTN, Smoking, COPD, CAD, Cancer, CVA, ARF, Chemo, Hep., AIDS, mental health diagnosis, sleep apnea, morbid obesity)? @ -None Was patient admitted / discharged? Hospital course, mention meds given and route, prescriptions, significant lab abnormalities, going to OR and other pertinent info. @ -Discharge F EPS evaluation Prolixin injection Undiagnosed new problem with uncertain prognosis? @ -No Drug Therapy requiring intensive monitoring for toxicity (Heparin, Nitro, Insulin, Cardizem)? @ -No Were any procedures done? @ -No Diagnosis/symptom? @ -Schizophrenia Acute, or Chronic, or Acute on Chronic? @ -Acute Uncomplicated (without systemic symptoms) or Complicated (systemic symptoms)? @ -Uncomplicated Side effects of treatment? @ -No Exacerbation, Progression, or Severe Exacerbation? @ -No Poses a threat to life or bodily function? How? (Chest pain, [place], [place], pneumonia, PE, COPD, DKA, ARF, appy, cholecystitis, CVA, Diverticulitis, Homicidal, Suicidal, threat to staff... and all critical care pts) @ -No Disposition Clinical Impression: Schizophrenia Disposition: HOME SELF-CARE Condition: Stable Instructions (If sedation given, give patient instructions): Schizophrenia (ED) Additional Instructions: Please return to the Emergency Department if symptoms worsen or any other concerns. Is patient prescribed a controlled substance at d/c from ED?: No Referrals: None,Stated [Primary Care Provider] - 1-2 days Time of Disposition: 13:51
[2022-11-17] MEDS ORDERED: fluPHENAZine DECANOATE 25 MG/ML 5ML MDV IM ONE (13:36)
[2022-11-17 14:08] VITALS: BP 127/80; PULSE 72; TEMP 98.2
== END 2022-11-17 14:08 | disposition home or self-care (01) ==
LOC: EC 11:15
DX: F20.9 Schizophrenia, unspecified (principal); Z87.891 Personal history of nicotine dependence; Z88.8 Allergy status to other drugs, medicaments and biological substances
CPT/HCPCS: 82075; 99284; 96372; J2680

== ENCOUNTER 2024-01-04 13:08 | Inpatient (IN) | payer MEDICARE, OTHER ==
--- NOTE | 2024-01-04 13:50 | ED ---
General Adult HPI - General Stated complaint: Petition Time Seen by Provider: 01/04/24 13:30 Source: patient, RN notes reviewed, old records reviewed - History of Present Illness Initial comments: This is a 33-year-old male who presents to the emergency department in the custody of the police patient was court ordered to come to the hospital however he refused and ran into the pedraza of the police apprehended him. Patient was brought in today with police and toe. Patient denies any paranoid behavior he denies any person is after him denies anybody in his attic denies anybody talking to the og[place] however all of these things were mentioned in the petition. Patient does not have any physical complaints patient denies drug use or alcohol use. Patient denies any previous history of mental health disease. Patient denies any medications and states he is not supposed to be taking any medications - Related Data Home Medications Medication Instructions Recorded Confirmed No Known Home Medications 11/13/22 11/13/22 Allergies Allergy/AdvReac Type Severity Reaction Status Date / Time diphenhydramine HCl Allergy Rash/Hives Verified 11/13/22 10:19 [From Matt] Review of Systems ROS Statement: Those systems with pertinent positive or pertinent negative responses have been documented in the HPI. ROS Other: All systems not noted in ROS Statement are negative. Past Medical History Past Medical History: No Reported History History of Any Multi-Drug Resistant Organisms: None Reported Past Surgical History: Unable to Obtain, Appendectomy Additional Past Surgical History / Comment(s): Pt reports he has no money and is depressed. Past Psychological History: Depression, Schizoaffective Disorder Smoking Status: Former smoker Past Alcohol Use History: None Reported Past Drug Use History: None Reported - Past Family History Father Additional Family Medical History / Comment(s): Patient will state that his parents of mother and father are both alive but he does not know their medical history. When asked about his brothers and sisters he just states I don't know. General Exam - General Exam Comments Initial Comments: GENERAL: Patient is well-developed and well-nourished. Patient is nontoxic and well- hydrated and is in no acute distress. ENT: Neck is soft and supple. No significant lymphadenopathy is noted. Oropharynx is clear. Moist mucous membranes. Neck has full range of motion without eliciting any pain. EYES: The sclera were anicteric and conjunctiva were pink and moist. Extraocular movements were intact and pupils were equal round and reactive to light. Eyelids were unremarkable. PULMONARY: Unlabored respirations. Good breath sounds bilaterally. No audible rales rhonchi or wheezing was noted. CARDIOVASCULAR: There is a regular rate and rhythm without any murmurs gallops or rubs. ABDOMEN: Soft and nontender with normal bowel sounds. SKIN: Skin is clear with no lesions or rashes and otherwise unremarkable. NEUROLOGIC: Patient is alert and oriented x3. Cranial nerves II through XII are grossly intact. Motor and sensory are also intact. Normal speech, volume and content. Symmetrical smile. MUSCULOSKELETAL: Normal extremities with adequate strength and full range of motion. No lower extremity swelling or edema. No calf tenderness. LYMPHATICS: No significant lymphadenopathy is noted PSYCHIATRIC: Patient denies any voices or denies anyone living in his attic and denies anyone is after him such as the [employer] Course Vital Signs 01/04/24 14:21 Temperature 98.1 F Pulse Rate 95 Respiratory 20 Rate Blood Pressure 134/71 O2 Sat by Pulse 98 Oximetry Medical Decision Making - Medical Decision Making Was pt. sent in by a medical professional or institution (, PA, [facility], urgent care, hospital, or fdc...) When possible be specific @ -Patient was brought in by police and they had a court order in hand Did you speak to anyone other than the patient for history (EMS, parent, family, police, friend...)? What history was obtained from this source @ -No Did you review nursing and triage notes (agree or disagree)? Why? @ -I reviewed and agree with nursing and triage notes Were old charts reviewed (outside hosp., previous admission, EMS record, old EKG, old radiological studies, urgent care reports/EKG's, fdc records)? Report findings @ -No old charts were reviewed Differential Diagnosis? @ -Differential Mental Health Depression, anxiety, bipolar, psychosis, schizophrenia, borderline personality, situational depression, adjustment disorder, behavioral disorder, brain tumor, malingering, substance abuse, encephalopathy, medication reaction, dementia, hypothyroidism, degenerative neurologic disorder, lupus.... This is not meant to be all-inclusive list EKG interpreted by me (3pts min.). @ -As above X-rays interpreted by me (1pt min.). @ -None done CT interpreted by me (1pt min.). @ -None done U/S interpreted by me (1pt. min.). @ -None done What testing was considered but not performed or refused? (CT, X-rays, U/S, labs)? Why? @ -None What meds were considered but not given or refused? Why? @ -None Did you discuss the management of the patient with other professionals (professionals i.e. DrDavid, PA, [facility], lab, RT, psych nurse, sexual assault social worker, sanitarian aide, teacher, air intelligence officer, case supervisor)? Give summary @ -I spoke to EPS EPS agreed that the patient needed to be admitted Was smoking cessation discussed for >3mins.? @ -No Was critical care preformed (if so, how long)? @ -No Were there social determinants of health that impacted care today? How? (Homelessness, low income, unemployed, alcoholism, drug addiction, transportat ion, low edu. Level, literacy, decrease access to med. care, usp, rehab)? @ -No Was there de-escalation of care discussed even if they declined (Discuss DNR or withdrawal of care, Hospice)? DNR status @ -No What co-morbidities impacted this encounter? (DM, HTN, Smoking, COPD, CAD, Cancer, CVA, ARF, Chemo, Hep., AIDS, mental health diagnosis, sleep apnea, morbid obesity)? @ -None Was patient admitted / discharged? Hospital course, mention meds given and route, prescriptions, significant lab abnormalities, going to OR and other pertinent info. @ -Patient was very flat affect and would not talk very much but he did deny all accusations that were in the petition. Undiagnosed new problem with uncertain prognosis? @ -No Drug Therapy requiring intensive monitoring for toxicity (Heparin, Nitro, I nsulin, Cardizem)? @ -No Were any procedures done? @ -No Diagnosis/symptom? @ -Acute psychosis Acute, or Chronic, or Acute on Chronic? @ -Acute Uncomplicated (without systemic symptoms) or Complicated (systemic symptoms)? @ -Complicated Side effects of treatment? @ -No Exacerbation, Progression, or Severe Exacerbation? @ -No Poses a threat to life or bodily function? How? (Chest pain, [place], [place], pneumonia, PE, COPD, DKA, ARF, appy, cholecystitis, CVA, Diverticulitis, Homicidal, Suicidal, threat to staff... and all critical care pts) @ -Yes he could harm himself without understanding what he is doing. This can lead to morbidity or mortality Disposition Clinical Impression: Acute psychosis Disposition: ADMITTED IP TO [facility] Referrals: None,Stated [Primary Care Provider] - 1-2 days Time of Disposition: 20:20
[2024-01-04 22:02] LABS: Amphetamine Screen,Urine Not Detected (NotDetected); Barbiturate Screen,Urine Not Detected (NotDetected); Benzodiazepines Screen,Urine Not Detected (NotDetected); Cocaine Screen,Urine Not Detected (NotDetected); Methadone Screen, Urine Not Detected (NotDetected); Opiate Screen,Urine Not Detected (NotDetected); Oxycodone Screen, Urine Not Detected (NotDetected); Phencyclidine Screen,Urine Not Detected (NotDetected); Tricyclic Antidepressant,Urine Not Detected (NotDetected); Urn Cannabinoid Scrn Not Detected (NotDetected)
[2024-01-04] MEDS ORDERED: HALOPERIDOL LACTATE 5 MG/ML 1 ML VIAL IM PRN (23:24)
[2024-01-04] MEDS ORDERED: MAGNESIUM HYDROXIDE 2,400 MG/30 ML CUP PO PRN (23:24)
[2024-01-04] MEDS ORDERED: ACETAMINOPHEN TAB 325 MG TAB PO PRN (23:24)
[2024-01-04] MEDS ORDERED: LORazepam 1 MG TAB PO PRN (23:24)
[2024-01-04] MEDS ORDERED: LORazepam 2 MG/ML INJ IM PRN (23:24)
[2024-01-04] MEDS ORDERED: IBUPROFEN 600 MG TAB PO PRN (23:24)
[2024-01-04] MEDS ORDERED: haloperidoL 5 MG TAB PO PRN (23:28)
[2024-01-04 23:45] LABS: Appearance,Urine Clear (Clear); Bilirubin,Urine Negative (Negative); Blood,Urine Negative (Negative); Color,Urine Yellow; Glucose,Urine (UA) Negative (Negative); Ketones,Urine 1+ (Negative); Leukocyte Esterase,Urine Negative (Negative); Mucus,Urine Many /hpf; Nitrite,Urine Negative (Negative); Protein,Urine 1+ (Negative); RBC,Urine 1 /hpf (0-5); Squamous Epithelial Cell,Urine <1 /hpf (0-4); WBC,Urine 4 /hpf (0-5)
[2024-01-05] MEDS ORDERED: MAG HYDROX/AL HYDROX/SIMETH 355 ML BOTTLE PO PRN
[2024-01-05] MEDS: NICOTINE 14MG/24HR PATCH TRANSDERM SCH (09:42)
--- NOTE | 2024-01-05 10:14 | P.HP ---
Psychiatric H&P - . H&P Date: 01/05/24 History & Physical: Allergies Allergy/AdvReac Type Severity Reaction Status Date / Time diphenhydramine HCl Allergy Rash/Hives Verified 01/04/24 20:32 [From Benadryl] Vital Signs Temp 97.8 F 01/05/24 00:37 Pulse 74 01/05/24 00:37 Resp 18 01/05/24 00:37 BP 148/72 01/05/24 00:37 Pulse Ox 100 01/05/24 00:37 FiO2 Intake & Output 01/04/24 01/05/24 01/05/24 18:59 06:59 18:59 Weight 63.503 kg 66.253 kg Laboratory Last Values Urine Color Yellow 01/04/24 21:39 Urine Appearance Clear (Clear) 01/04/24 21:39 Urine pH 6.0 (5.0-8.0) 01/04/24 21:39 Ur Specific [place] 1.040 (1.001-1.035) H 01/04/24 21:39 Urine Protein 1+ (Negative) H 01/04/24 21:39 Urine Glucose (UA) Negative (Negative) 01/04/24 21:39 Urine Ketones 1+ (Negative) H 01/04/24 21:39 Urine Blood Negative (Negative) 01/04/24 21:39 Urine Nitrite Negative (Negative) 01/04/24 21:39 Urine Bilirubin Negative (Negative) 01/04/24 21:39 Urine Urobilinogen 3.0 mg/dL (<2.0) 01/04/24 21:39 Ur Leukocyte Esterase Negative (Negative) 01/04/24 21:39 Urine RBC 1 /hpf (0-5) 01/04/24 21:39 Urine WBC 4 /hpf (0-5) 01/04/24 21:39 Ur Squamous Epith Cells <1 /hpf (0-4) 01/04/24 21:39 Urine Mucus Many /hpf (None) H 01/04/24 21:39 Urine Opiates Screen Not Detected (NotDetected) 01/04/24 21:39 Ur Oxycodone Screen Not Detected (NotDetected) 01/04/24 21:39 Urine Methadone Screen Not Detected (NotDetected) 01/04/24 21:39 Ur Barbiturates Screen Not Detected (NotDetected) 01/04/24 21:39 U Tricyclic Antidepress Not Detected (NotDetected) 01/04/24 21:39 Ur Phencyclidine Scrn Not Detected (NotDetected) 01/04/24 21:39 Ur Amphetamines Screen Not Detected (NotDetected) 01/04/24 21:39 U Methamphetamines Scrn Not Detected (NotDetected) 01/04/24 21:39 U Benzodiazepines Scrn Not Detected (NotDetected) 01/04/24 21:39 Urine Cocaine Screen Not Detected (NotDetected) 01/04/24 21:39 U Marijuana (THC) Screen Not Detected (NotDetected) 01/04/24 21:39 Influenza Type A (PCR) Not Detected (Not Detectd) 01/04/24 22:07 Influenza Type B (PCR) Not Detected (Not Detectd) 01/04/24 22:07 RSV (PCR) Not Detected (Not Detectd) 01/04/24 22:07 SARS-CoV-2 (PCR) Not Detected (Not Detectd) 01/04/24 22:07 01/05/24 08:13 IDENTIFYING DATA: Patient is a 33-year-old male who is presenting with psychosis HPI: Patient was brought in by the police on a pickup order and a petition by patient's public guardian. per history provided by case management, patient was in [facility] to 3 weeks ago and has been noncompliant on psychotropic medications. Per the petition, "he believes there are people talking through the [place]. He also believes that FBI is in the attic." He was noted to become aggressive when asked to participate in treatment and refused services. Despite numerous attempts to engage patient, patient was completely uncooperative this morning when seen bedside. Upon this provider introducing herself, patient said that he does not speak need to speak with the doctor, covered himself with his blanket, and refused to engage. He later stated that he had nothing wrong with his health and would like for this provider to leave. Patient completely lacks insight into his condition, appears disheveled, and guarded. He did not express any other concerns. Patient refused numerous labs that were ordered and refused EKG. PSYCH HX: Patient states that is a history of schizoaffective disorder. Patient was on Prolixin D long-acting injection every 2 weeks. Patient has been psychiatrically hospitalized several times in the past, last hospitalization was 2 years ago on this mental health unit. He had follow up with [facility] in the past. Patient denies any history of suicide attempts in the past. PMH: Past Medical History: No Reported History History of Any Multi-Drug Resistant Organisms: None Reported Past Surgical History: Unable to Obtain, Appendectomy Additional Past Surgical History / Comment(s): Pt reports he has no money and is depressed. Past Psychological History: Depression, Schizoaffective Disorder Smoking Status: Former smoker Past Alcohol Use History: None Reported Past Drug Use History: None Reported SUBSTANCE HX: UDS negative for all substances. Denies nicotine use SOCIAL/LEGAL HX: Per chart review- Patient was born and raised in [facility]. Got to the 9th grade in school. 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 collects SSD. currently homeless, staying between hotels rooms. legally has been to [facility] in 2019. Recent release from [facility] a few weeks ago FAM PSYCH HX: Per chart review- cousin has some form of mental illness. IMPRESSIONS: Mental status exam: General Appearance: Patient appears to be stated age is alert, uncooperative, and guarded. Poor hygiene and grooming. Behavior: Patient is laying in bed. Paranoid. Speech: Patient's speech is fluent and nonpressured although brief Mood/Affect: mood is objectively irritable, affect is congruent and constricted. Suicidality/Homicidality: Patient denies having any suicidal or homicidal ideation intent or plan. Perceptions: Patient denies any auditory or visual hallucinations. Though content/process: Paranoia Memory and concentration: Grossly oriented to self and situation Judgment and insight: chronically poor Impression: Schizophrenia H/o Cannabis use disorder mild H/o Nicotine dependence STRENGTHS/WEAKNESSES: strength is that patient is resilient. Weakness is that patient has poor judgment and poor insight INTELLECT: average PLAN: -Patient is admitted under involuntary status- second certificate completed. Patient has not signed medication consent and is placed in patient's chart. -Medications : Start Invega 3 mg daily for psychosis -Ativan and Haldol PRN for agitation/aggression -Patient was informed of the risks, benefits and side effects of the medication and did not want to sign medication consent form. -Internal Medicine consult to perform medical evaluation and physical. -NRT - not needed -SW on board for discharge planning. Encourage patient to participate in groups to work on coping skills. 01/05/24 10:13
[2024-01-05] MEDS: PALIPERIDONE 3 MG TAB.ER.24 PO SCH (20:44)
--- NOTE | 2024-01-06 11:22 | P.PN ---
Progress Note - Text Progress Note Date: 01/06/24 Interval History: Patient was seen bedside this AM. He says he ate breakfast and slept well last night. He was very medication focused and said he does not believe he needs Invega. He displays poor insight. He says he had involuntary muscle movements with Abilify, does not like Risperdal or Invega, and says he likes Vraylar in the past. He would not elaborate on why he was unwilling to be on Risperdal and said "that's for me to know and you to find out." He refused to participate in the interview further and asked this provider to leave. Patient has been noncompliant with medication. Refusing labs. Vital Signs Temp 97.8 F 01/05/24 00:37 Pulse 76 01/06/24 06:44 Resp 18 01/05/24 00:37 BP 110/72 01/06/24 06:44 Pulse Ox 100 01/05/24 00:37 FiO2 Mental Status Exam: General Appearance: Patient appears to be stated age is alert, uncooperative, and guarded. Poor hygiene and grooming. Behavior: Patient is laying in bed. Paranoid. Speech: Patient's speech is fluent and nonpressured although brief Mood/Affect: mood is objectively irritable, affect is flat. Suicidality/Homicidality: Patient not endorsing any suicidal or homicidal ideation intent or plan. Perceptions: Patient not endorsing any auditory or visual hallucinations. Not appearing to respond to internal stimuli Though content/process: Paranoia, medication focused Memory and concentration: Grossly oriented to self and situation Judgment and insight: chronically poor Assessment Schizophrenia H/o Cannabis use disorder mild H/o Nicotine dependence Plan: -Patient is admitted under involuntary status- second certificate completed. Patient has not signed medication consent and is placed in patient's chart. -Medications : Invega 3 mg daily for psychosis. Pt has been noncompliant -Ativan and Haldol PRN for agitation/aggression -Patient was informed of the risks, benefits and side effects of the medication and did not want to sign medication consent form. -Internal Medicine consult to perform medical evaluation and physical. -SW on board for discharge planning. Encourage patient to participate in groups to work on coping skills.
--- NOTE | 2024-01-07 11:22 | P.PN ---
Progress Note - Text Progress Note Date: 01/07/24 Interval History: Patient was seen bedside this morning. Patient has been fairly isolative, he refused to take part in the interview today with bid writer. He was covered in his blankets, turned away. He only answered to questions from bid writer denies any suicidal homicidal ideations, denies any auditory or visual hallucinations. Email Developer attempted to further ask questions however patient refused. Patient has been noncompliant with medication. Refusing labs. Mental Status Exam: General Appearance: Patient appears to be stated age is alert, uncooperative, and guarded. Poor hygiene and grooming. Behavior: Patient is laying in bed. Paranoid. Uncooperative. Speech: Patient's speech is fluent and nonpressured, concrete Mood/Affect: mood is objectively irritable, affect is flat. Suicidality/Homicidality: Patient not endorsing any suicidal or homicidal ideation intent or plan. Perceptions: Patient not endorsing any auditory or visual hallucinations. Not appearing to respond to internal stimuli Though content/process: Paranoia, concrete, poverty of content Memory and concentration: Unable to assess Judgment and insight: chronically poor Assessment Schizophrenia H/o Cannabis use disorder mild H/o Nicotine dependence Plan: -Patient is admitted under involuntary status- second certificate completed and filed. patient will have deferral on 10/07 with employment law attorney. -Medications : Invega 3 mg daily for psychosis. Pt is refusing medication -Ativan and Haldol PRN for agitation/aggression -SW on board for discharge planning. Encourage patient to participate in groups to work on coping skills. Will await deferral on 01/07 with employment law attorney.
[2024-01-08] MEDS ORDERED: PROPRANOLOL 20 MG TAB PO PRN (12:02)
--- NOTE | 2024-01-08 12:10 | P.PN ---
Progress Note - Text Progress Note Date: 01/08/24 Interval History: Patient was seen bedside today. He was agreeable to speak with chief underwriter today. He stated he is feeling better today. He did take invega last night. He was previously refusing medication. He stated that he does not like invega, because it causes him sexual side effects, like erectile disfunction, and asked to be put on Abilify instead. Shingle Weaver spoke with the patient about medication changes, and patient verbalized understanding. He is still mainly isolating to his room, and not attending groups. He endorses good sleep, and a good appetite. He answered questions from chief underwriter today, and denies any suicidal homicidal ideations, denies any auditory or visual hallucinations. Patient did take his dose of invega last night Mental Status Exam: General Appearance: Patient appears to be stated age is alert, more cooperative, yet still guarded. Improving hygiene and grooming. Behavior: Patient is calmly standing in his room, guarded Speech: Patient's speech is fluent and nonpressured, concrete Mood/Affect: mood is "better" affect is flat, concrete Suicidality/Homicidality: Patient not endorsing any suicidal or homicidal ideation intent or plan. Perceptions: Patient not endorsing any auditory or visual hallucinations. Not appearing to respond to internal stimuli Though content/process: Paranoia, concrete, poverty of content, mildly improving Memory and concentration: AOx3, follows commands. Judgment and insight: poor, improivng mildly Assessment Schizophrenia H/o Cannabis use disorder mild H/o Nicotine dependence Plan: -Patient is admitted under involuntary status- second certificate completed and filed. patient will have deferral on 10/07 with personal injury attorney. -Medications : d/c Invega Add Abilify 5 mg PO daily for psychosis. Add Inderal 20mg bid prn for akithesia/restlessness -Ativan and Haldol PRN for agitation/aggression -SW on board for discharge planning. Encourage patient to participate in groups to work on coping skills. Will await deferral on 01/07 with personal injury attorney.
[2024-01-08] MEDS: ARIPiprazole 5 MG TAB PO SCH (12:35)
--- NOTE | 2024-01-08 19:03 | P.PN ---
Progress Note - Text Progress Note Date: 01/08/24 Went to go see the patient in [facility]. He wanted to be left alone. He refused physical exam. He said he was fine and did not need to see a doctor.
[2024-01-09 09:11] VITALS: RESP 16
--- NOTE | 2024-01-09 11:22 | P.PN ---
Progress Note - Text Progress Note Date: 01/09/24 Interval History: Patient was seen bedside today. He was agreeable to speak with narrative writer. He stated he is doing ok today. He states that during the day, he is having low energy. Statistical Assistant spoke with patient about switching medication to night time. Patient agreeable. He is still mainly isolating to his room, and not attending groups. He endorses good sleep, and a good appetite. He answered questions from narrative writer today, and denies any suicidal homicidal ideations, denies any auditory or visual hallucinations. Patient has been compliant with medication, and denies side effects. Mental Status Exam: General Appearance: Patient appears to be stated age is alert, more cooperative, yet still guarded. Improving hygiene and grooming. Behavior: Patient is calmly standing in his room, guarded Speech: Patient's speech is fluent and nonpressured, concrete Mood/Affect: mood is "better" affect is flat, concrete Suicidality/Homicidality: Patient not endorsing any suicidal or homicidal ideation intent or plan. Perceptions: Patient not endorsing any auditory or visual hallucinations. Not appearing to respond to internal stimuli Though content/process: Paranoia, concrete, poverty of content, mildly improving Memory and concentration: AOx3, follows commands. Judgment and insight: poor, improivng mildly Assessment: Schizophrenia H/o Cannabis use disorder mild H/o Nicotine dependence Plan: -Patient is admitted under involuntary status- second certificate completed and filed. patient will have deferral on 10/07 with employee benefits attorney. -Medications : change Abilify 5 mg PO QHS for psychosis, increase to 7.5mg 01/09, and 10mg 01/10. Inderal 20mg bid prn for akithesia/restlessness -Ativan and Haldol PRN for agitation/aggression -SW on board for discharge planning. Encourage patient to participate in groups to work on coping skills. Patient did defer with his employee benefits attorney. Likely discharge Sunday, he is a detention hold, if patient continues to improve
[2024-01-10] MEDS: ARIPiprazole 5 MG TAB PO ONE (08:46)
--- NOTE | 2024-01-10 10:52 | P.PN ---
Progress Note - Text Progress Note Date: 01/10/24 Interval History: Patient was seen bedside today. He was agreeable to speak with radio news writer. He stated he is doing much better today. He states that he feels the medication is helping his thoughts clear. He is still mainly isolating to his room, and not attending groups. He is showering and eating meals. He endorses good sleep, and a good appetite. He answered questions from radio news writer today, and denies any suicidal homicidal ideations, denies any auditory or visual hallucinations. Patient has been compliant with medication, and denies side effects. Mental Status Exam: General Appearance: Patient appears to be stated age is alert, cooperative, Improving hygiene and grooming. Behavior: Patient is calmly seated in his room Speech: Patient's speech is fluent and nonpressured, concrete. Mood/Affect: mood is "better" affect is flat, concrete, improving Suicidality/Homicidality: Patient not endorsing any suicidal or homicidal ideation intent or plan. Perceptions: Patient not endorsing any auditory or visual hallucinations. Not appearing to respond to internal stimuli Though content/process: mildly improving Memory and concentration: AOx3, Judgment and insight: improving mildly Assessment: Schizophrenia H/o Cannabis use disorder mild H/o Nicotine dependence Plan: -Patient is admitted under involuntary status- second certificate completed and filed. patient will have deferral on 10/07 with family law attorney. -Medications : increase Abilify to 10mg starting tomorrow. Inderal 20mg bid prn for akithesia/restlessness -Ativan and Haldol PRN for agitation/aggression -SW on board for discharge planning. Encourage patient to participate in groups to work on coping skills. Patient did defer with his family law attorney. Likely discharge back to prison tomorrow, if patient continues to improve
[2024-01-11 07:21] VITALS: BP 109/59; PULSE 55; TEMP 97.5
[2024-01-11] MEDS: ARIPiprazole 10 MG TAB PO SCH (09:13)
--- NOTE | 2024-01-11 11:03 | P.DS ---
Providers Date of admission: 01/04/24 23:12 Expected date of discharge: 01/11/24 Attending physician: Benji Carlson MD Consults: 01/04/24 23:24 Consult Physician Routine Consulting Provider: Rosemary Perez Consult Reason/Comments: Medical H&P Do you want consulting provider notified?: Yes Primary care physician: Stated None - Discharge Diagnosis(es) (1) Schizophrenia Current Visit: Yes Status: Acute Priority: High (2) Cannabis use disorder, mild, abuse Current Visit: Yes Status: Acute Priority: Medium (3) Nicotine dependence Current Visit: Yes Status: Acute Priority: Low Hospital Course: Admission HPI: Admission note was completed by Dr Gayle "patient is a 33-year-old male who is presenting with psychosis. Patient was brought in by the police on a pickup order and a petition by patient's public guardian. per history provided by case management, patient was in correction to 3 weeks ago and has been noncompliant on psychotropic medications. Per the petition, "he believes there are people talking through the [place]. He also believes that FBI is in the attic." He was noted to become aggressive when asked to participate in treatment and refused services. Despite numerous attempts to engage patient, patient was completely uncooperative this morning when seen bedside. Upon this provider introducing herself, patient said that he does not speak need to speak with the doctor, covered himself with his blanket, and refused to engage. He later stated that he had nothing wrong with his health and would like for this provider to leave. Patient completely lacks insight into his condition, appears disheveled, and guarded. He did not express any other concerns. Patient refused numerous labs that were ordered and refused EKG." Hospital course: Upon admission to the unit patient was admitted involuntarily on a petition and certificate and a second certificate was completed and faxed to the courts. Patient ended up signing a deferral with the managing attorney and agreeing to treatment.. Patient was mainly isolative during his hospitalization however with time and treatment he eventually got along well with other patients on the unit and followed unit protocol. Patient was compliant with the medications and denied any side effects throughout hospital course. Patient was started on Abilify p.o. increased to dose of 10 mg daily for mood stabilization/psychosis. Patient spoke of his stressors and engaged in therapy both group and individual. Patient was also seen by medical team for history and physical exam. Throughout the course of the hospitalization patient gradually improved with regards to mood, anxiety, psychosis, sleep and returned back to their baseline level of functioning. On the day of discharge patient denied any suicidal or homicidal ideations intent or plan denied any auditory or visual hallucinations. Patient endorsed wanting to live for [facility] and his family. the patient denied any access to guns or weapons. Patient denied any paranoia and did not endorse any delusions. Patient does have a significant history of substance abuse and was counseled on abstaining from all substances including alcohol and marijuana. Patient elected to do outpatient substance use treatment program through their outpatient provider. Patient was also counseled on the medications and need for regular compliance and was encouraged to follow-up with their outpatient appointment for mental health and also for primary care. maintenance worker arranged for patient to be transferred back to correction upon discharge, he will follow-up with [facility] once being released from correction. Mental status exam: General Appearance: Patient appears to be thin, unshaven, stated age is alert, pleasant, and cooperative. Patient is in no acute distress and has improved hygiene and grooming Behavior: Patient is calmly seated without any agitated behavior. Speech: Patient's speech is fluent and nonpressured. Mood/Affect: Patient reports their mood is "good", affect is congruent and constricted Suicidality/Homicidality: Patient denies having any suicidal or homicidal ideation intent or plan. Perceptions: Patient denies any auditory or visual hallucinations. Though content/process: There is no evidence of any delusional thought content and thought process is linear and goal-directed. Memory and concentration: AOX3, grossly intact for the purposes of this session. Can spell "WORLD" backwards correctly. Judgment and insight: Chronically poor, however has improved with guarded prognosis Impression: Schizophrenia Cannabis use disorder mild Nicotine dependence Plan: -Continue with discharge today as patient has improved and stabilized psychiatrically and is not currently an imminent threat to themself and/or others. Patient will remain at chronically elevated risk for harm to self and/or others due to their impulsivity and substance abuse. -Continue medications: Abilify p.o. 10 mg daily for mood stabilization/psychosis. -Patient was counseled on the need for medication compliance and appropriate follow-up at mental health and also primary care for medical issues. Patient verbalized understanding and agreed. -Social work to help coordinate patients discharge today, patient will be discharged today back to correction and then will be following up with [facility] after being released from correction. Social work also to arrange for patients follow up appointments with [facility] for psychiatric care along with follow up with primary care provider. -Patient counseled on abstaining from recreational drugs and marijuana and alcohol. Was informed/educated on the adverse effects on their physical and mental health. Patient verbally agreed and understood. -Patient was instructed to return to the hospital or seek immediate medical care if their psychiatric or medical symptoms do worsen or reoccur. Allergies Allergy/AdvReac Type Severity Reaction Status Date / Time diphenhydramine HCl Allergy Rash/Hives Verified 01/04/24 20:32 [From Benadryl] Laboratory Results Urine Color Yellow 01/04/24 21:39 Urine Appearance Clear (Clear) 01/04/24 21:39 Urine pH 6.0 (5.0-8.0) 01/04/24 21:39 Ur Specific [place] 1.040 (1.001-1.035) H 01/04/24 21:39 Urine Protein 1+ (Negative) H 01/04/24 21:39 Urine Glucose (UA) Negative (Negative) 01/04/24 21:39 Urine Ketones 1+ (Negative) H 01/04/24 21:39 Urine Blood Negative (Negative) 01/04/24 21:39 Urine Nitrite Negative (Negative) 01/04/24 21:39 Urine Bilirubin Negative (Negative) 01/04/24 21:39 Urine Urobilinogen 3.0 mg/dL (<2.0) 01/04/24 21:39 Ur Leukocyte Esterase Negative (Negative) 01/04/24 21:39 Urine RBC 1 /hpf (0-5) 01/04/24 21:39 Urine WBC 4 /hpf (0-5) 01/04/24 21:39 Ur Squamous Epith Cells <1 /hpf (0-4) 01/04/24 21:39 Urine Mucus Many /hpf (None) H 01/04/24 21:39 Urine Opiates Screen Not Detected (NotDetected) 01/04/24 21:39 Ur Oxycodone Screen Not Detected (NotDetected) 01/04/24 21:39 Urine Methadone Screen Not Detected (NotDetected) 01/04/24 21:39 Ur Barbiturates Screen Not Detected (NotDetected) 01/04/24 21:39 U Tricyclic Antidepress Not Detected (NotDetected) 01/04/24 21:39 Ur Phencyclidine Scrn Not Detected (NotDetected) 01/04/24 21:39 Ur Amphetamines Screen Not Detected (NotDetected) 01/04/24 21:39 U Methamphetamines Scrn Not Detected (NotDetected) 01/04/24 21:39 U Benzodiazepines Scrn Not Detected (NotDetected) 01/04/24 21:39 Urine Cocaine Screen Not Detected (NotDetected) 01/04/24 21:39 U Marijuana (THC) Screen Not Detected (NotDetected) 01/04/24 21:39 Influenza Type A (PCR) Not Detected (Not Detectd) 01/04/24 22:07 Influenza Type B (PCR) Not Detected (Not Detectd) 01/04/24 22:07 RSV (PCR) Not Detected (Not Detectd) 01/04/24 22:07 SARS-CoV-2 (PCR) Not Detected (Not Detectd) 01/04/24 22:07 Vital Signs Temp 97.5 F L 01/11/24 07:20 Pulse 55 L 01/11/24 07:20 Resp 16 01/11/24 07:20 BP 109/59 01/11/24 07:20 Pulse Ox 100 01/09/24 09:10 FiO2 Patient Condition at Discharge: Stable Plan - Discharge Summary Discharge Rx Participant: Yes New Discharge Prescriptions: New ARIPiprazole [Abilify] 10 mg PO DAILY 30 Days #30 tab Discharge Medication List ARIPiprazole [Abilify] 10 mg PO DAILY 30 Days #30 tab 01/11/24 [Rx] Follow up Appointment(s)/Referral(s): Care, Yes [Other] - 01/11/24 4:00 pm (intake 01/11/2024 @ 16:00) None,Stated [Primary Care Provider] - 1-2 days Discharge Disposition: DC/TRANSFER COURT/LAW
== END 2024-01-11 14:56 | disposition home or self-care (01) | DRG 885 ==
LOC: EC 13:08 → 3MHU 23:12
PROVIDERS: ADMIT Psychiatry & Neurology Psychiatry; ATTEND Psychiatry & Neurology Psychiatry
DX: F25.9 Schizoaffective disorder, unspecified (principal); F12.10 Cannabis abuse, uncomplicated; F32.A Depression, unspecified; F41.9 Anxiety disorder, unspecified; Z91.199 Patient's noncompliance with other medical treatment and regimen due to unspecified reason; Z91.148 Patient's other noncompliance with medication regimen for other reason; Z87.891 Personal history of nicotine dependence; Z87.19 Personal history of other diseases of the digestive system; Z88.8 Allergy status to other drugs, medicaments and biological substances; Z71.51 Drug abuse counseling and surveillance of drug abuser
CPT/HCPCS: 80306; 81001; 82075; 87636; 99285

== ENCOUNTER 2024-11-18 16:30 | Emergency (ER) | payer MEDICARE ==
[2024-11-18 17:16] VITALS: TEMP 99
--- NOTE | 2024-11-18 17:19 | ED ---
General Adult HPI - General Chief complaint: Psychiatric Symptoms Stated complaint: Pickup Order Time Seen by Provider: 11/18/24 17:19 Source: patient, police Mode of arrival: ambulatory - History of Present Illness Initial comments: 33-year-old male brought here by police with pickup order. Patient has not taken his psychiatric medications for the last 2 weeks. He has been refusing them because "his insurance does not cover them". Also refused his injection at [facility]. Patient is calm and cooperative. No suicidal or homicidal ideation. No physical complaints. - Related Data Previous Rx's Medication Instructions Recorded ARIPiprazole [Abilify] 10 mg PO DAILY 30 Days #30 tab 01/11/24 Allergies Allergy/AdvReac Type Severity Reaction Status Date / Time diphenhydramine HCl Allergy Rash/Hives Verified 10/15/24 00:26 [From Matt] Review of Systems ROS Statement: Those systems with pertinent positive or pertinent negative responses have been documented in the HPI. ROS Other: All systems not noted in ROS Statement are negative. Past Medical History Past Medical History: No Reported History History of Any Multi-Drug Resistant Organisms: None Reported Past Surgical History: Appendectomy Additional Past Surgical History / Comment(s): Pt reports he has no money and is depressed. Past Anesthesia/Blood Transfusion Reactions: No Reported Reaction Past Psychological History: Depression, Schizoaffective Disorder Smoking Status: Current every day smoker, Vaper Past Alcohol Use History: None Reported Past Drug Use History: None Reported - Past Family History Father History Unknown: Yes Additional Family Medical History / Comment(s): Patient will state that his parents of mother and father are both alive but he does not know their medical history. When asked about his brothers and sisters he just states I don't know. Mother History Unknown: Yes General Exam - General Exam Comments Initial Comments: Visual Physical Exam Vital signs reviewed General: Well-appearing, nontoxic, no acute distress. Head: Normocephalic, atraumatic Eyes: PERRLA, EOMI ENT: Airway patent Chest: Nonlabored breathing Skin: No visual rash, normal skin tone Neuro: Alert and oriented 3 Musculoskeletal: No gross abnormalities Limitations: no limitations General appearance: alert, in no apparent distress Head exam: Present: atraumatic, normocephalic, normal inspection Eye exam: Present: normal appearance, EOMI Neck exam: Present: normal inspection. Absent: meningismus Respiratory exam: Absent: respiratory distress Cardiovascular Exam: Present: regular rate Neurological exam: Present: alert, oriented X3 Psychiatric exam: Present: normal affect, normal mood Skin exam: Present: warm, dry, normal color Course Vital Signs 11/18/24 11/18/24 17:12 22:13 Temperature 99 F Pulse Rate 80 76 Respiratory 20 17 Rate Blood Pressure 104/72 131/85 O2 Sat by Pulse 98 98 Oximetry Medical Decision Making - Medical Decision Making I performed the quick note portion of this visit, electronically signed Gloria De Leon PA-C Was pt. sent in by a medical professional or institution (, [facility], [facility], urgent care, hospital, or senior living...) When possible be specific @ -No Did you speak to anyone other than the patient for history (EMS, parent, family, police, friend...)? What history was obtained from this source @ -No Did you review nursing and triage notes (agree or disagree)? Why? @ -I reviewed and agree with nursing and triage notes Were old charts reviewed (outside hosp., previous admission, EMS record, old EKG, old radiological studies, urgent care reports/EKG's, senior living records)? Report findings @ -No old charts were reviewed Differential Diagnosis (chest pain, altered mental status, abdominal pain women, abdominal pain men, vaginal bleeding, weakness, fever, dyspnea, syncope, headache, dizziness, GI bleed, back pain, seizure, CVA, palpatations, mental health, musculoskeletal)? @ -Differential Mental Health Depression, anxiety, bipolar, psychosis, schizophrenia, borderline personality, situational depression, adjustment disorder, behavioral disorder, brain tumor, malingering, substance abuse, encephalopathy, medication reaction, dementia, hypothyroidism, degenerative neurologic disorder, lupus.... This is not meant to be all-inclusive list EKG interpreted by me (3pts min.). @ -As above X-rays interpreted by me (1pt min.). @ -None done CT interpreted by me (1pt min.). @ -None done U/S interpreted by me (1pt. min.). @ -None done What testing was considered but not performed or refused? (CT, X-rays, U/S, labs)? Why? @ -None What meds were considered but not given or refused? Why? @ -None Did you discuss the management of the patient with other professionals (professionals i.e. DrDavid, PA, [employer], lab, RT, psych nurse, social worker assistant, medical customer service representative, teacher, public health officer, patient case manager)? Give summary @ -Spoke with the EPS nurse who determines that the patient can be safely discharged home after receiving his injection here in the ER Was smoking cessation discussed for >3mins.? @ -No Was critical care preformed (if so, how long)? @ -No Were there social determinants of health that impacted care today? How? (Homelessness, low income, unemployed, alcoholism, drug addiction, transportation, low edu. Level, literacy, decrease access to med. care, snf, rehab)? @ -No Was there de-escalation of care discussed even if they declined (Discuss DNR or withdrawal of care, Hospice)? DNR status @ -No What co-morbidities impacted this encounter? (DM, HTN, Smoking, COPD, CAD, Cancer, CVA, ARF, Chemo, Hep., AIDS, mental health diagnosis, sleep apnea, morbid obesity)? @ -None Was patient admitted / discharged? Hospital course, mention meds given and route, prescriptions, significant lab abnormalities, going to OR and other pertinent info. @ -33-year-old male here on a pickup order due to noncompliance with his medication. Patient medically cleared and evaluated by EPS. They determined that the patient is not suicidal or homicidal and can be safely discharged home after receiving his Prolixin injection here in the ER. Follow-up with PCP. Report back to ER with any new or worsening symptoms. My attending is Dr. Barnes Undiagnosed new problem with uncertain prognosis? @ -No Drug Therapy requiring intensive monitoring for toxicity (Heparin, Nitro, Insulin, Cardizem)? @ -No Were any procedures done? @ -No Diagnosis/symptom? @ -Schizophrenia Acute, or Chronic, or Acute on Chronic? @ -Chronic Uncomplicated (without systemic symptoms) or Complicated (systemic symptoms)? @ -Uncomplicated Side effects of treatment? @ -No Exacerbation, Progression, or Severe Exacerbation? @ -No Poses a threat to life or bodily function? How? (Chest pain, [place], [place], pneumonia, PE, COPD, DKA, ARF, appy, cholecystitis, CVA, Diverticulitis, Homicidal, Suicidal, threat to staff... and all critical care pts) @ -No immediate threat Diagnosis/symptom? @Medication noncompliance Acute, or Chronic, or Acute on Chronic? @Acute Uncomplicated (without systemic symptoms) or Complicated (systemic symptoms)? @Uncomplicated Side effects of treatment? @None Exacerbation, Progression, or Severe Exacerbation] @No Poses a threat to life or bodily function? @No immediate threat at this time - Lab Data Lab Results 11/18/24 Range/Units 17:19 Urine Opiates Screen Not Detected (NotDetected) Ur Oxycodone Screen Not Detected (NotDetected) Urine Methadone Screen Not Detected (NotDetected) Ur Barbiturates Screen Not Detected (NotDetected) U Tricyclic Antidepress Not Detected (NotDetected) Ur Phencyclidine Scrn Not Detected (NotDetected) Ur Amphetamines Screen Not Detected (NotDetected) U Methamphetamines Scrn Not Detected (NotDetected) U Benzodiazepines Scrn Not Detected (NotDetected) Urine Cocaine Screen Not Detected (NotDetected) U Marijuana (THC) Screen Not Detected (NotDetected) Disposition Clinical Impression: Schizophrenia Disposition: HOME SELF-CARE Condition: Fair Additional Instructions: Follow-up with [facility]. Report back to ER with any new or worsening symptoms. Is patient prescribed a controlled substance at d/c from ED?: No Referrals: None,Stated [Primary Care Provider] - 1-2 days Time of Disposition: 21:44
[2024-11-18 18:58] LABS: Barbiturate Screen,Urine Not Detected (NotDetected); Benzodiazepines Screen,Urine Not Detected (NotDetected); Opiate Screen,Urine Not Detected (NotDetected); Oxycodone Screen, Urine Not Detected (NotDetected); Phencyclidine Screen,Urine Not Detected (NotDetected); Tricyclic Antidepressant,Urine Not Detected (NotDetected); Urn Cannabinoid Scrn Not Detected (NotDetected)
[2024-11-18] MEDS: fluPHENAZine DECANOATE 25 MG/ML 5ML MDV IM ONE (21:57)
[2024-11-18 22:14] VITALS: BP 131/85; PULSE 76; RESP 17
== END 2024-11-18 22:14 | disposition home or self-care (01) ==
LOC: EC 16:30
DX: F20.9 Schizophrenia, unspecified (principal); F17.290 Nicotine dependence, other tobacco product, uncomplicated; Z88.8 Allergy status to other drugs, medicaments and biological substances
CPT/HCPCS: 82075; 80306; 99284; 96372; J2680